=== PATIENT | male | born 1960 | race Caucasian/White ===

== ENCOUNTER 2021-04-19 23:16 | Inpatient (IN) | payer OTHER ==
[~2021-04-19] VITALS: Ht 172.7 cm; Wt 135.6 kg
[~2021-04-19 23:16] MED LIST: ALBU2.5V8 IH; ALLO100T PO; AMLO-187 PO; ATEN50TA PO; ATOR20TA58 PO; COLC0.6T34 PO; CYAN500T17 PO; DICL100G24 TP; DOCU100C28 PO; ESCITALOPRAM OX20 MG PO; FLUO60TA PO; GABA300C18 PO; HYDR-2769 PO; LISI-130 PO; LISI1TAB37 PO; METF10007 PO; OMEP40CA7 PO; POLY2500 PO; TIOT18CA IH; TRAZ-118 PO; [UNRECOGNIZED DRUG - OTHER]
[2021-04-19] MEDS ORDERED: IV NORMAL SALINE 1000ML BAG 1,000 ML IV ONE (23:45)
--- NOTE | 2021-04-19 23:49 | EKG ---
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
--- NOTE | 2021-04-19 23:51 | RAD ---
XR CHEST 1V 04/19/2021 11:23 PM INDICATION: Chest pain COMPARISON: 09/04/2020 TECHNIQUE: Portable frontal view of the chest is provided. FINDINGS: The cardiomediastinal silhouette is within normal limits. There is increased opacity identified withi n the right middle lobe and right lower lobe. Pulmonary emphysema. There are no significant pleural effusions. There is no pulmonary vascular congestion. No pneumothora x. No suspicious osseous abnormality. Left shoulder hardware is partially profiled. IMPRESSION: Increased opacity at the right lung base involving the right middle lobe and right lower lobe favors pulmonary infiltrate in appropriate clinical setting. Short-term follow-up two-view chest radiograph could be of benefit. Electronically signed by: Zully Jackson MD (04/19/2021 11:48 PM) [facility]
[2021-04-20 00:02] LABS: BASO # 0.1 x10^3/uL (0.0-0.2); BASO % 1 % (0-3); EOS # 0.2 x10^3/uL (0.0-0.7); EOS % 1 % (0-3); HEMATOCRIT 39.7 % (39.0-53.0); HEMOGLOBIN 13.5 g/dL (13.0-17.5); LYMPH # 4.8 x10^3/uL (1.0-4.8); LYMPH % 37 % (24-48); MEAN CORPUSCULAR HEMOGLOBIN 32 pg (25-35); MEAN CORPUSCULAR HGB CONC 34 g/dL (31-37); MEAN CORPUSCULAR VOLUME 94 fL (79-100); MONO # 0.6 x10^3/uL (0.0-1.1); MONO % 4 % (0-9); NEUT # 7.2 x10^3/uL (1.8-7.7); NEUT % 56 % (31-73); PLATELET COUNT 323 x10^3/uL (140-400); RED BLOOD COUNT 4.21 x10^6/uL (4.30-5.70); WHITE BLOOD COUNT 12.7 x10^3/uL (4.0-11.0)
[2021-04-20 00:16] LABS: CALCIUM 8.1 mg/dL (8.5-10.1); CREATININE 0.9 mg/dL (0.7-1.3); GFR 86.7
[2021-04-20 00:22] LABS: ALBUMIN 3.3 g/dL (3.4-5.0); ALBUMIN/GLOBULIN RATIO 0.8 (1.0-1.7); TOTAL BILIRUBIN 0.2 mg/dL (0.2-1.0); TOTAL PROTEIN 7.2 g/dL (6.4-8.2)
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
[2021-04-20] MEDS ORDERED: cefTRIAXone IV Push 1 GM VIAL. IVP ONE (01:30)
[2021-04-20] MEDS ORDERED: AZITHROMYCIN 250 MG TABLET. PO ONE (01:30)
[2021-04-20] MEDS ORDERED: POTASSIUM CHLORIDE 20 MEQ TABLET.ER. PO ONE ×2 (03:30→14:00)
--- NOTE | 2021-04-20 04:30 | NUR ---
The patient, J Luis Lemus S, 60 y/o, M admitted by TJ ALEJO MD, was given written information regarding hospital policies, unit procedures and contact persons. assessment and history completed. used history in the emr. pt on room air. med/surg pt. room 665 Valuables were checked and documented in the emr. lcrn.
[2021-04-20 04:45] VITALS: BP 192/114
[2021-04-20] MEDS ORDERED: MAGNESIUM SULFATE 2GM 50 ML IV ONE (04:45)
[2021-04-20 07:00] VITALS: BP 219/101
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
[2021-04-20] MEDS ORDERED: diphenhydrAMINE HCL 25 MG CAPSULE PO PRN (09:15)
[2021-04-20] MEDS ORDERED: DEXTROSE 50% 25 GM / 50ML DISP.SYRIN. IV PRN (09:15)
[2021-04-20] MEDS ORDERED: hydrALAZINE 20 MG/ML VIAL. IVP PRN (09:15)
[2021-04-20] MEDS ORDERED: SENNOSIDES 8.6 MG TABLET PO PRN (09:15)
[2021-04-20] MEDS ORDERED: LORazepam 0.5 MG TABLET PO PRN (09:15)
[2021-04-20] MEDS ORDERED: DOCUSATE SODIUM 100 MG CAPSULE. PO PRN (09:15)
[2021-04-20] MEDS: LABETALOL 20 MG/4 ML DISP.SYRIN. IVP PRN (09:29)
[2021-04-20] MEDS: ONDANSETRON PF 4 MG/2 ML VIAL. IVP PRN ×2 (09:29→17:43)
[2021-04-20 10:47] VITALS: BP 161/80
[2021-04-20] MEDS: PROCHLORPERAZINE 10 MG/2 ML VIAL. IV PRN ×2 (12:34→21:00)
--- NOTE | 2021-04-20 13:53 | NUR ---
SS following for discharge planning. SS reviewed pt chart and discussed with pt RN. Pt is from home and is currently on room air. COVID19 negative. Pt on IV Azithromycin and IV Rocephin. Discharge plan is currently to home when medically ready for discharge. SS will continue to follow for discharge planning.
[2021-04-20] MEDS: ENOXAPARIN 40 MG/0.4 ML SYRINGE. SQ SCH ×2 (14:44→20:59)
[2021-04-20 15:00] VITALS: BP 174/86
[2021-04-20 19:52] VITALS: BP 135/74
[2021-04-20] MEDS: LACTOBACILLUS RHAMNOSUS GG 1 CAPSULE. PO SCH (20:59)
[2021-04-20] MEDS: ZOLPIDEM 5 MG TABLET. PO PRN (20:59)
[2021-04-20] MEDS: ACETAMINOPHEN 325 MG TABLET. PO PRN (21:00)
[2021-04-20] MEDS: diphenhydrAMINE 50 MG/ML VIAL IVP PRN (21:00)
[2021-04-21 07:00] VITALS: BP 167/102
[2021-04-21] MEDS: ACETAMINOPHEN 325 MG TABLET. PO PRN (07:04)
[2021-04-21 07:14] LABS: BASO % 1 % (0-3); EOS # 0.2 x10^3/uL (0.0-0.7); EOS % 3 % (0-3); HEMATOCRIT 35.8 % (39.0-53.0); HEMOGLOBIN 12.1 g/dL (13.0-17.5); LYMPH # 2.1 x10^3/uL (1.0-4.8); LYMPH % 34 % (24-48); MEAN CORPUSCULAR HEMOGLOBIN 32 pg (25-35); MEAN CORPUSCULAR HGB CONC 34 g/dL (31-37); MEAN CORPUSCULAR VOLUME 95 fL (79-100); MONO # 0.3 x10^3/uL (0.0-1.1); MONO % 6 % (0-9); NEUT # 3.5 x10^3/uL (1.8-7.7); NEUT % 56 % (31-73); PLATELET COUNT 255 x10^3/uL (140-400); RED BLOOD COUNT 3.76 x10^6/uL (4.30-5.70); WHITE BLOOD COUNT 6.2 x10^3/uL (4.0-11.0)
[2021-04-21 07:33] LABS: CALCIUM 7.9 mg/dL (8.5-10.1); CREATININE 0.7 mg/dL (0.7-1.3); GFR 115.8; MAGNESIUM 1.7 mg/dL (1.8-2.4); PHOSPHORUS 4.8 mg/dL (2.6-4.7)
[2021-04-21] MEDS: AZITHROMYCIN 500 MG in IV NORMAL SALINE 250ML 250 ML IV SCH (10:39)
[2021-04-21] MEDS: LACTOBACILLUS RHAMNOSUS GG 1 CAPSULE. PO SCH ×2 (10:39→19:34)
[2021-04-21] MEDS: ENOXAPARIN 40 MG/0.4 ML SYRINGE. SQ SCH ×2 (10:40→20:17)
[2021-04-21 11:00] VITALS: BP 151/99
[2021-04-21] MEDS: diphenhydrAMINE 50 MG/ML VIAL IVP PRN ×2 (11:59→17:11)
--- NOTE | 2021-04-21 12:14 | NUR ---
SW following. Discussed with RN, pt from home alone, room air, ada diet, COVID-19 negative, abx, ad sergey. RN advised no SW needs at this time. Pt will discharge home when medically stable. SW will continue to follow.
--- NOTE | 2021-04-21 12:49 | PDOC ---
[employer] PROGRESS NOTE Date of Service DOS: DATE: 04/21/21 TIME: 12:47 Chief Complaint Chief Complaint Hypertensive urgency Sepsis Acute right middle and lower lobe pneumonia possible gram-negative organisms Lactic acidosis Acute electrolyte derangementhypokalemia, hypomagnesemia Admit to hospitalist service for further management Continue empiric IV antibiotics CIWA protocol Continue IV fluids PO and IV electrolyte replacement as needed Lovenox for DVT prophylaxis Cardiac diet CODE STATUS full Discussed with RN and SW Disposition inpatient management as above DPOA: undesignated History of Present Illness History of Present Illness 04/21 Patient evaluated examined at bedside. He was resting in bed sleeping on room air. Easily awoken. Says chest pain has improved quite a bit. Still having shortness of breath with productive cough. Continue IV antibiotics. Home meds reconciled resumed today. Patient has been showing some concerning signs for alcohol withdrawal like hallucinations. Keep CIWA we will closely monitor. Vitals/I&O Vitals/I&O: Vital Signs Date Time Temp Pulse Resp B/P (MAP) Pulse Ox O2 Delivery O2 Flow Rate FiO2 04/21/21 11:00 97.5 93 20 151/99 (116) 95 Room Air 97.5 I & O 04/20/21 04/20/21 04/21/21 15:00 23:00 07:00 Intake Total 1135 ml 660 ml 360 ml Balance 1135 ml 660 ml 360 ml Physical Exam General: Alert, Oriented X3, Cooperative Heart: Regular rate, Normal S1 Lungs: Other (Coarse decreased air entry throughout) Abdomen: Normal bowel sounds, Soft, No tenderness Extremities: Normal pulses, Other (Bilateral lower extremity edema) Skin: No significant lesion Labs Labs: Laboratory Tests Test 04/20/21 16:34 04/21/21 05:35 Glucose (Fingerstick) 119 mg/dL (70-99) White Blood Count 6.2 x10^3/uL (4.0-11.0) Red Blood Count 3.76 x10^6/uL (4.30-5.70) Hemoglobin 12.1 g/dL (13.0-17.5) Hematocrit 35.8 % (39.0-53.0) Mean Corpuscular Volume 95 fL (79-100) Mean Corpuscular Hemoglobin 32 pg (25-35) Mean Corpuscular Hemoglobin Concent 34 g/dL (31-37) Red Cell Distribution Width 13.0 % (11.5-14.5) Platelet Count 255 x10^3/uL (140-400) Neutrophils (%) (Auto) 56 % (31-73) Lymphocytes (%) (Auto) 34 % (24-48) Monocytes (%) (Auto) 6 % (0-9) Eosinophils (%) (Auto) 3 % (0-3) Basophils (%) (Auto) 1 % (0-3) Neutrophils # (Auto) 3.5 x10^3/uL (1.8-7.7) Lymphocytes # (Auto) 2.1 x10^3/uL (1.0-4.8) Monocytes # (Auto) 0.3 x10^3/uL (0.0-1.1) Eosinophils # (Auto) 0.2 x10^3/uL (0.0-0.7) Basophils # (Auto) 0.0 x10^3/uL (0.0-0.2) Sodium Level 143 mmol/L (136-145) Potassium Level 4.0 mmol/L (3.5-5.1) Chloride Level 105 mmol/L (98-107) Carbon Dioxide Level 27 mmol/L (21-32) Anion Gap 11 (6-14) Blood Urea Nitrogen 10 mg/dL (8-26) Creatinine 0.7 mg/dL (0.7-1.3) Estimated GFR (Cockcroft-Gault) 115.8 Glucose Level 113 mg/dL (70-99) Calcium Level 7.9 mg/dL (8.5-10.1) Phosphorus Level 4.8 mg/dL (2.6-4.7) Magnesium Level 1.7 mg/dL (1.8-2.4) Assessment and Plan Assessmemt and Plan Problems Medical Problems: (1) CAP (community acquired pneumonia) Status: Acute (2) Chest pain Status: Acute (3) Elevated lactic acid level Status: Acute (4) Hypokalemia Status: Acute (5) Hypomagnesemia Status: Acute Comment Review of Relevant I have reviewed the following items marika (where applicable) has been applied. Medications: Current Medications Medications (Trade) Dose Ordered Sig/Julia Route PRN Reason Start Time Stop Time Status Last Admin Dose Admin Azithromycin 500 mg/Sodium Chloride 250 ml @ 250 mls/hr Q24H IV 04/21/21 09:00 04/21/21 10:39 Potassium Chloride (Klor-Con) 40 meq 1X ONCE PO 04/20/21 14:00 04/20/21 14:01 DC 04/20/21 14:43 Enoxaparin Sodium (Lovenox 40mg Syringe) 40 mg Q12HR SQ 04/20/21 14:00 04/21/21 10:40 Lactobacillus Rhamnosus (Culturelle) 1 cap BID PO 04/20/21 21:00 04/21/21 10:39 Justifications for Admission Other Justification Alcohol intoxication, PNA TJ CARRENO MD Apr 21, 2021 12:49
[2021-04-21] MEDS ORDERED: POLYETHYLENE GLYCOL 3350 17 GM PACKET. PO PRN (13:00)
[2021-04-21] MEDS: cefTRIAXone IV Push 1 GM VIAL. IVP SCH (13:37)
[2021-04-21 14:41] VITALS: BP 163/102
[2021-04-21] MEDS: GABAPENTIN 300 MG CAPSULE. PO SCH ×2 (14:48→19:35)
[2021-04-21] MEDS: ALLOPURINOL 100 MG TABLET. PO SCH (14:49)
[2021-04-21] MEDS: IPRATRPIUM/ALBUTEROL 0.5/2.5MG 3 ML NEBU. NEB SCH ×2 (15:43→20:10)
[2021-04-21] MEDS: HYDROcodone/APAP 10/325 1 TAB TABLET PO PRN (16:31)
[2021-04-21] MEDS ORDERED: diphenhydrAMINE 50 MG/ML VIAL IVP PRN (18:15)
[2021-04-21] MEDS ORDERED: cloNIDine HCL 0.1 MG TABLET PO PRN (18:15)
[2021-04-21] MEDS: HALOPERIDOL LACTATE 5 MG/ML VIAL. IVP PRN (18:25)
[2021-04-21 19:00] VITALS: BP 183/105
[2021-04-21 19:30] VITALS: BP 169/100
[2021-04-21] MEDS ORDERED: OLANZapine IM 10 MG VIAL. IM ONE ×2 (19:30→22:00)
[2021-04-21] MEDS ORDERED: ZIPRASIDONE IM 20 MG VIAL. IM ONE ×2 (19:30→21:30)
[2021-04-21] MEDS: ZOLPIDEM 5 MG TABLET. PO PRN (19:34)
[2021-04-21] MEDS: diphenhydrAMINE HCL 25 MG CAPSULE PO PRN (19:34)
[2021-04-21] MEDS: ATENOLOL 50 MG TABLET. PO SCH (19:35)
[2021-04-21] MEDS: ONDANSETRON PF 4 MG/2 ML VIAL. IVP PRN (19:35)
[2021-04-21] MEDS: traZODone 50 MG TABLET. PO SCH (19:35)
[2021-04-21] MEDS: fentaNYL PF VIAL 100 MCG/2 ML VIAL IVP PRN (19:58)
--- NOTE | 2021-04-21 20:24 | NUR ---
Patient very confused, restless, hallucinating, he is up and down in his room and in the halls, he is looking for his family and a cat that he said 5 years ago. He is easily agitated, throwing his cellphone and other items in the room. He said he needs a liquor drink so that he can go to sleep. He is upset because this nurse is unable to provide him with the liquor. He is mad at his smart phone because he does not know how to operate it. he said, "I'm looking for my electronics that I had just bought today and my gun is missing." Reorientated him that he is in the hospital. Spoke with Dr. Bermudez additional medications ordered and administered per order. Patient would go lay down for 10 to 15 minutes and then get up looking for the family to pick him up and throw personal items onto the floor. He took all the trash out of the trash can and spread it around looking for his gun and electronics over and over again. Security came up to do a courtesy call and monitor while this nurse administered medications to Patient. CIWA above 24, Ativan, Benadryl and Haldol ordered per CIWA.
--- NOTE | 2021-04-21 20:51 | NUR ---
Dr. Bermudez up to see Patient at this time, Patient up walking with unsteady gait noted in hallway attempting to walk into closets in the mike wanting to urinate, this nurse redirected him to his bathroom and he hollered out, "God dam bitches!", new orders received from Dr. Bermudez.
--- NOTE | 2021-04-21 20:58 | NUR ---
Patient up walking in his room, grabbed the plate cover/lid that was left in his room and threw it like a frisbee at the window, this nurse took the lid out of the room at this time.
--- NOTE | 2021-04-21 21:53 | NUR ---
Patient non-compliant, Eri ICU STAFF NURSE went in room to check on Patient, He got up ambulated and urinated all over in his room and the bathroom, ICU STAFF NURSE attempted to assist him, he was noted to be unsteady, he pushed the bathroom door slamming it against the wall making loud noise, this nurse was at the desk and heard it all the way down the mike, Charge nurse called lilliana krause while this nurse ran into the room to assist ICU STAFF NURSE, Patient restless and agitated, assisted him back to bed administered medications per Dr. Bermudez's order, Patient calmed down a little with eyes closed, call light with in reach, bed alarm on.
--- NOTE | 2021-04-21 22:45 | NUR ---
Patient wake, restless, agitated, hallucinating, getting up with unsteady gait, this nurse assisted him back to bed, he was noted to have eyes closed, call light with in reach bed alarm on CIWA 24, this nurse went to get Ativan per [facility] protocol, As this nurse went down to administer Medication, Patient had gotten up out of bed, pulled his IV/SL out, his is on blood thinner, bleed all over the floor, fell towards the wall and hit his forehead, and scrap his Rt. knee, this nurse pressed the call light button, continued to holler out for staff assist and stayed with the Patient. Other Patient in room 576 heard this nurse and went to call charge nurse who came in and then went to call for a Rapid Response team. When Rapid response team arrived and took over the situation this nurse left to paged Dr. Alexander, new orders received, Patient moved closer to the nurse desk with staff taking turns to monitor closely. He was taken to CT by CHARGING MACHINE OPERATOR and this nurse while attempting to get CT of head, Patient started swinging at CT staff, this nurse called for an other CODE Bogdan.
[2021-04-21 23:00] VITALS: BP 205/118
[2021-04-21] MEDS ORDERED: HALOPERIDOL LACTATE 5 MG/ML VIAL. IVP ONE (23:15)
[2021-04-21] MEDS: LABETALOL 20 MG/4 ML DISP.SYRIN. IVP PRN (23:41)
--- NOTE | 2021-04-21 23:43 | NUR ---
Rapid Response: Arrived to room and several nursing staff and warehouse consultant in the room. Pt laying on the floor with blood everywhere. Attempts made to clean blood from patient but he would swing his arms at staff and yell. Pt has been medicated per doctors orders for alcohol withdraw and is disoriented and unable to follow commands. Pt noted to have a large area of swelling to the middle of his forehead and an abrasion to his left knee. Neuro assessment attempted but pt was uncooperative. Pupils were equal and reactive and he was moving all extremities. Dr. Alexander notified of pts fall and behavior by Yue Bañuelos RN and orders received for haldol and to attempt to get a head a CT if pt will lay still and cooperate. Decision by warehouse consultant to move pt to room 586 by the nurses desk and to have the nurse aid to sit with him. Pt assisted off the floor by 4 staff members and placed in bed.
[2021-04-22] MEDS ORDERED: ZIPRASIDONE IM 20 MG VIAL. IM STA (00:02)
[2021-04-22] MEDS ORDERED: OLANZapine IM 10 MG VIAL. IM ONE (00:15)
--- NOTE | 2021-04-22 01:18 | RAD ---
PQRS Compliance Statement: One or more of the following individualized dose reduction techniques were utilized for this examinat ion: 1. Automated exposure control 2. Adjustment of the mA and/or kV according to patient size 3. Use of iterative reconstruction technique CT head without contrast 04/21/2021 12:38 AM INDICATION: Fall, combative COMPARISON: None available TECHNIQUE: Multiple axial CT images of the head were obtained from skull base through the vertex with out intravenous contrast. FINDINGS: Head:. Extensive motion artifact limits evaluation. Right scalp hematoma measures 2.0 cm in maximal t hickness. Adjacent calvaria appears intact. Ventricles, sulci and basal cisterns are within normal limits. There is no hydrocephalus. Mcfadden-white matter differentiation is normal. Nondiagnostic examination for evaluation of acute intracranial hemo rrhage. There is no mass, mass effect or midline shift. Posterior fossa is normal in appearance. Visualized portions of the orbits are normal. Paranasal sinuses are well aerated. Mastoid air cells a re well aerated. Scalp and calvaria are normal. IMPRESSION: Nondiagnostic examination for evaluation of acute intracranial hemorrhage. Right frontal scalp hemato ma is identified. Electronically signed by: Zully Jackson MD (04/22/2021 1:16 AM) [facility]
[2021-04-22] MEDS: HALOPERIDOL LACTATE 5 MG/ML VIAL. IVP PRN (02:45)
[2021-04-22 03:00] VITALS: BP 166/98
[2021-04-22 07:00] VITALS: BP 180/63
[2021-04-22 07:22] LABS: BASE EXCESS ABG 3 mmol/L (-3-3); HCO3 ABG 29 mmol/L (21-28); PCO2 ABG 51 mmHg (35-46); PO2 ABG 57 mmHg (75-108); SAT O2 ABG 89 % (92-99)
[2021-04-22 07:25] LABS: FIO2 ABG 21/ room air
[2021-04-22] MEDS: IPRATRPIUM/ALBUTEROL 0.5/2.5MG 3 ML NEBU. NEB SCH ×4 (07:45→20:00)
[2021-04-22 07:58] LABS: BASO # 0.1 x10^3/uL (0.0-0.2); BASO % 1 % (0-3); EOS # 0.3 x10^3/uL (0.0-0.7); EOS % 3 % (0-3); HEMATOCRIT 34.4 % (39.0-53.0); HEMOGLOBIN 11.5 g/dL (13.0-17.5); LYMPH # 1.9 x10^3/uL (1.0-4.8); LYMPH % 24 % (24-48); MEAN CORPUSCULAR HEMOGLOBIN 32 pg (25-35); MEAN CORPUSCULAR HGB CONC 33 g/dL (31-37); MEAN CORPUSCULAR VOLUME 96 fL (79-100); MONO # 0.6 x10^3/uL (0.0-1.1); MONO % 8 % (0-9); NEUT # 5.2 x10^3/uL (1.8-7.7); NEUT % 65 % (31-73); PLATELET COUNT 258 x10^3/uL (140-400); RED CELL DISTRIBUTION WIDTH 12.8 % (11.5-14.5); WHITE BLOOD COUNT 7.9 x10^3/uL (4.0-11.0)
[2021-04-22 08:24] LABS: CALCIUM 8.3 mg/dL (8.5-10.1); CREATININE 0.9 mg/dL (0.7-1.3); GFR 86.7; MAGNESIUM 1.8 mg/dL (1.8-2.4); POTASSIUM 4.2 mmol/L (3.5-5.1)
[2021-04-22] MEDS: LACTOBACILLUS RHAMNOSUS GG 1 CAPSULE. PO SCH ×2 (08:46→19:37)
[2021-04-22] MEDS: ATORVASTATIN CALCIUM 20 MG TABLET PO SCH (08:46)
[2021-04-22] MEDS: MULTIVITAMIN with MINERAL TABLET. PO SCH (08:46)
[2021-04-22] MEDS: THIAMINE 100 MG TABLET. PO SCH (08:46)
[2021-04-22] MEDS: hydroCHLOROthiazide 12.5 MG CAPSULE PO SCH (08:46)
[2021-04-22] MEDS: GABAPENTIN 300 MG CAPSULE. PO SCH ×3 (08:46→19:37)
[2021-04-22] MEDS: FOLIC ACID 1 MG TABLET. PO SCH (08:49)
[2021-04-22] MEDS: CITALOPRAM 20 MG TABLET. PO SCH (08:49)
[2021-04-22] MEDS: ALLOPURINOL 100 MG TABLET. PO SCH (08:49)
[2021-04-22] MEDS: PANTOPRAZOLE 40 MG TABLET.DR. PO SCH (08:50)
[2021-04-22] MEDS: HYDROcodone/APAP 10/325 1 TAB TABLET PO PRN ×2 (08:50→19:39)
[2021-04-22] MEDS: LISINOPRIL 20 MG TABLET PO SCH (08:50)
[2021-04-22] MEDS: ENOXAPARIN 40 MG/0.4 ML SYRINGE. SQ SCH ×2 (08:52→19:44)
[2021-04-22] MEDS ORDERED: NON FORMULARY ITEM (Tiotropium Bromide (Spiriva) 1 CAP) IH SCH (09:00)
[2021-04-22] MEDS: AZITHROMYCIN 500 MG in IV NORMAL SALINE 250ML 250 ML IV SCH (09:09)
[2021-04-22] MEDS: cefTRIAXone IV Push 1 GM VIAL. IVP SCH (09:10)
[2021-04-22 11:00] VITALS: BP 197/107
[2021-04-22 15:00] VITALS: BP 116/77
[2021-04-22 19:00] VITALS: BP 149/90
[2021-04-22] MEDS: traZODone 50 MG TABLET. PO SCH (19:37)
[2021-04-22] MEDS: ZOLPIDEM 5 MG TABLET. PO PRN (19:56)
[2021-04-22] MEDS: ATENOLOL 50 MG TABLET. PO SCH (19:56)
[2021-04-22] MEDS ORDERED: ZIPRASIDONE IM 20 MG VIAL. IM ONE (22:30)
[2021-04-23 04:39] LABS: BASO % 1 % (0-3); EOS # 0.3 x10^3/uL (0.0-0.7); EOS % 3 % (0-3); HEMATOCRIT 32.4 % (39.0-53.0); HEMOGLOBIN 11.1 g/dL (13.0-17.5); LYMPH # 1.6 x10^3/uL (1.0-4.8); LYMPH % 18 % (24-48); MEAN CORPUSCULAR HEMOGLOBIN 34 pg (25-35); MEAN CORPUSCULAR HGB CONC 34 g/dL (31-37); MEAN CORPUSCULAR VOLUME 98 fL (79-100); MONO # 0.7 x10^3/uL (0.0-1.1); MONO % 8 % (0-9); NEUT # 6.3 x10^3/uL (1.8-7.7); NEUT % 70 % (31-73); PLATELET COUNT 243 x10^3/uL (140-400); RED BLOOD COUNT 3.31 x10^6/uL (4.30-5.70); RED CELL DISTRIBUTION WIDTH 12.7 % (11.5-14.5); WHITE BLOOD COUNT 8.9 x10^3/uL (4.0-11.0)
[2021-04-23 04:56] LABS: CALCIUM 8.1 mg/dL (8.5-10.1); CREATININE 0.9 mg/dL (0.7-1.3); GFR 86.7; MAGNESIUM 2.1 mg/dL (1.8-2.4); POTASSIUM 4.7 mmol/L (3.5-5.1)
[2021-04-23 07:00] VITALS: BP 147/81
[2021-04-23] MEDS: MULTIVITAMIN with MINERAL TABLET. PO SCH (07:55)
[2021-04-23] MEDS: THIAMINE 100 MG TABLET. PO SCH (07:55)
[2021-04-23] MEDS: PANTOPRAZOLE 40 MG TABLET.DR. PO SCH (07:55)
[2021-04-23] MEDS: hydroCHLOROthiazide 12.5 MG CAPSULE PO SCH (07:55)
[2021-04-23] MEDS: GABAPENTIN 300 MG CAPSULE. PO SCH ×3 (07:55→19:48)
[2021-04-23] MEDS: LACTOBACILLUS RHAMNOSUS GG 1 CAPSULE. PO SCH ×2 (07:56→19:48)
[2021-04-23] MEDS: HYDROcodone/APAP 10/325 1 TAB TABLET PO PRN (07:56)
[2021-04-23] MEDS: ALLOPURINOL 100 MG TABLET. PO SCH (07:57)
[2021-04-23] MEDS: ATORVASTATIN CALCIUM 20 MG TABLET PO SCH (07:57)
[2021-04-23] MEDS: FOLIC ACID 1 MG TABLET. PO SCH (07:57)
[2021-04-23] MEDS: ENOXAPARIN 40 MG/0.4 ML SYRINGE. SQ SCH ×2 (07:58→19:49)
[2021-04-23] MEDS: CITALOPRAM 20 MG TABLET. PO SCH (07:58)
[2021-04-23] MEDS: LISINOPRIL 20 MG TABLET PO SCH (07:59)
[2021-04-23] MEDS: IPRATRPIUM/ALBUTEROL 0.5/2.5MG 3 ML NEBU. NEB SCH ×4 (08:32→20:00)
[2021-04-23] MEDS: cefTRIAXone IV Push 1 GM VIAL. IVP SCH (09:00)
[2021-04-23] MEDS: AZITHROMYCIN 500 MG in IV NORMAL SALINE 250ML 250 ML IV SCH (10:15)
[2021-04-23 11:00] VITALS: BP 118/74
[2021-04-23] MEDS: IV NORMAL SALINE 1000ML BAG 1,000 ML IV SCH ×2 (12:00→23:06)
--- NOTE | 2021-04-23 12:32 | PDOC ---
[employer] PROGRESS NOTE Date of Service DOS: DATE: 04/23/21 TIME: 12:30 Chief Complaint Chief Complaint Hypertensive urgency Sepsis Acute right middle and lower lobe pneumonia possible gram-negative organisms Lactic acidosis Acute electrolyte derangementhypokalemia, hypomagnesemia Admit to hospitalist service for further management Continue empiric IV antibiotics CIWA protocol Continue IV fluids PO and IV electrolyte replacement as needed Lovenox for DVT prophylaxis Cardiac diet CODE STATUS full Discussed with RN and SW Disposition inpatient management as above DPOA: undesignated History of Present Illness History of Present Illness I saw this patient on 04/22 at night for agitation, screaming, I gave Geodon 20 today, still same problems, has taken off tele, will get EKG to check QT range more calm this AM, out of mits, meds needed PRN, still in withdrawl sx IV fluid today, appears dry 04/21 Patient evaluated examined at bedside. He was resting in bed sleeping on room air. Easily awoken. Says chest pain has improved quite a bit. Still having shortness of breath with productive cough. Continue IV antibiotics. Home meds reconciled resumed today. Patient has been showing some concerning signs for alcohol withdrawal like hallucinations. Keep CIWA we will closely monitor. Vitals/I&O Vitals/I&O: Vital Signs Date Time Temp Pulse Resp B/P (MAP) Pulse Ox O2 Delivery O2 Flow Rate FiO2 04/23/21 12:24 Room Air 04/23/21 11:00 98.3 84 20 118/74 (89) 94 98.3 04/22/21 23:00 2.0 Physical Exam Physical Exam: agiated, confused, then lethargic Heart: Regular rate, Normal S1 Lungs: Other (Coarse decreased air entry throughout) Abdomen: Normal bowel sounds, Soft, No tenderness Extremities: No cyanosis, Normal pulses, Other (Bilateral lower extremity edema) Skin: No rashes, No significant lesion, Other (nice tattoos) Labs Labs: Laboratory Tests Test 04/22/21 16:28 04/22/21 19:58 04/23/21 04:20 04/23/21 07:17 Glucose (Fingerstick) 121 mg/dL (70-99) 111 mg/dL (70-99) 112 mg/dL (70-99) White Blood Count 8.9 x10^3/uL (4.0-11.0) Red Blood Count 3.31 x10^6/uL (4.30-5.70) Hemoglobin 11.1 g/dL (13.0-17.5) Hematocrit 32.4 % (39.0-53.0) Mean Corpuscular Volume 98 fL (79-100) Mean Corpuscular Hemoglobin 34 pg (25-35) Mean Corpuscular Hemoglobin Concent 34 g/dL (31-37) Red Cell Distribution Width 12.7 % (11.5-14.5) Platelet Count 243 x10^3/uL (140-400) Neutrophils (%) (Auto) 70 % (31-73) Lymphocytes (%) (Auto) 18 % (24-48) Monocytes (%) (Auto) 8 % (0-9) Eosinophils (%) (Auto) 3 % (0-3) Basophils (%) (Auto) 1 % (0-3) Neutrophils # (Auto) 6.3 x10^3/uL (1.8-7.7) Lymphocytes # (Auto) 1.6 x10^3/uL (1.0-4.8) Monocytes # (Auto) 0.7 x10^3/uL (0.0-1.1) Eosinophils # (Auto) 0.3 x10^3/uL (0.0-0.7) Basophils # (Auto) 0.0 x10^3/uL (0.0-0.2) Sodium Level 145 mmol/L (136-145) Potassium Level 4.7 mmol/L (3.5-5.1) Chloride Level 106 mmol/L (98-107) Carbon Dioxide Level 34 mmol/L (21-32) Anion Gap 5 (6-14) Blood Urea Nitrogen 15 mg/dL (8-26) Creatinine 0.9 mg/dL (0.7-1.3) Estimated GFR (Cockcroft-Gault) 86.7 Glucose Level 121 mg/dL (70-99) Calcium Level 8.1 mg/dL (8.5-10.1) Magnesium Level 2.1 mg/dL (1.8-2.4) Test 04/23/21 11:16 Glucose (Fingerstick) 100 mg/dL (70-99) Assessment and Plan Assessmemt and Plan Problems Medical Problems: (1) CAP (community acquired pneumonia) Status: Acute (2) Chest pain Status: Acute (3) Elevated lactic acid level Status: Acute (4) Hypokalemia Status: Acute (5) Hypomagnesemia Status: Acute Comment Review of Relevant I have reviewed the following items marika (where applicable) has been applied. Medications: Current Medications Medications (Trade) Dose Ordered Sig/Julia Route PRN Reason Start Time Stop Time Status Last Admin Dose Admin Ziprasidone (Geodon Im) 20 mg 1X ONCE IM 04/22/21 22:30 04/22/21 22:31 DC 04/22/21 22:16 Justifications for Admission Other Justification Alcohol intoxication, PNA JABARI FUENTES MD Apr 23, 2021 12:32
--- NOTE | 2021-04-23 13:02 | NUR ---
SW following. Discussed with RN, pt from home alone, room air, ada diet. Pt still withdrawing and hallucinating. Pt will discharge home when medically stable. SW will continue to follow.
--- NOTE | 2021-04-23 13:30 | PDOC ---
[employer] PROGRESS NOTE Date of Service DOS: Late entry for April 22 Chief Complaint Chief Complaint Hypertensive urgency Sepsis Acute right middle and lower lobe pneumonia possible gram-negative organisms Lactic acidosis Acute electrolyte derangementhypokalemia, hypomagnesemia Admit to hospitalist service for further management Continue empiric IV antibiotics CIWA protocol Continue IV fluids PO and IV electrolyte replacement as needed Lovenox for DVT prophylaxis Cardiac diet CODE STATUS full Discussed with RN and SW Disposition inpatient management as above DPOA: undesignated History of Present Illness History of Present Illness 04/22 Late entry for April 22. Evaluate examined at bedside. Improving a little bit but seems a bit altered today. Otherwise continue pneumonia treatment. As needed CIWA. 04/21 Patient evaluated examined at bedside. He was resting in bed sleeping on room air. Easily awoken. Says chest pain has improved quite a bit. Still having shortness of breath with productive cough. Continue IV antibiotics. Home meds reconciled resumed today. Patient has been showing some concerning signs for alcohol withdrawal like hallucinations. Keep CIWA we will closely monitor. Vitals/I&O Vitals/I&O: Vital Signs Date Time Temp Pulse Resp B/P (MAP) Pulse Ox O2 Delivery O2 Flow Rate FiO2 04/23/21 12:24 Room Air 04/23/21 11:00 98.3 84 20 118/74 (89) 94 98.3 04/22/21 23:00 2.0 Physical Exam Physical Exam: agiated, confused, then lethargic Heart: Regular rate, Normal S1 Lungs: Other (Coarse decreased air entry throughout) Abdomen: Normal bowel sounds, Soft, No tenderness Extremities: No cyanosis, Normal pulses, Other (Bilateral lower extremity edema) Skin: No rashes, No significant lesion, Other (nice tattoos) Labs Labs: Laboratory Tests Test 04/22/21 16:28 04/22/21 19:58 04/23/21 04:20 04/23/21 07:17 Glucose (Fingerstick) 121 mg/dL (70-99) 111 mg/dL (70-99) 112 mg/dL (70-99) White Blood Count 8.9 x10^3/uL (4.0-11.0) Red Blood Count 3.31 x10^6/uL (4.30-5.70) Hemoglobin 11.1 g/dL (13.0-17.5) Hematocrit 32.4 % (39.0-53.0) Mean Corpuscular Volume 98 fL (79-100) Mean Corpuscular Hemoglobin 34 pg (25-35) Mean Corpuscular Hemoglobin Concent 34 g/dL (31-37) Red Cell Distribution Width 12.7 % (11.5-14.5) Platelet Count 243 x10^3/uL (140-400) Neutrophils (%) (Auto) 70 % (31-73) Lymphocytes (%) (Auto) 18 % (24-48) Monocytes (%) (Auto) 8 % (0-9) Eosinophils (%) (Auto) 3 % (0-3) Basophils (%) (Auto) 1 % (0-3) Neutrophils # (Auto) 6.3 x10^3/uL (1.8-7.7) Lymphocytes # (Auto) 1.6 x10^3/uL (1.0-4.8) Monocytes # (Auto) 0.7 x10^3/uL (0.0-1.1) Eosinophils # (Auto) 0.3 x10^3/uL (0.0-0.7) Basophils # (Auto) 0.0 x10^3/uL (0.0-0.2) Sodium Level 145 mmol/L (136-145) Potassium Level 4.7 mmol/L (3.5-5.1) Chloride Level 106 mmol/L (98-107) Carbon Dioxide Level 34 mmol/L (21-32) Anion Gap 5 (6-14) Blood Urea Nitrogen 15 mg/dL (8-26) Creatinine 0.9 mg/dL (0.7-1.3) Estimated GFR (Cockcroft-Gault) 86.7 Glucose Level 121 mg/dL (70-99) Calcium Level 8.1 mg/dL (8.5-10.1) Magnesium Level 2.1 mg/dL (1.8-2.4) Test 04/23/21 11:16 Glucose (Fingerstick) 100 mg/dL (70-99) Assessment and Plan Assessmemt and Plan Problems Medical Problems: (1) CAP (community acquired pneumonia) Status: Acute (2) Chest pain Status: Acute (3) Elevated lactic acid level Status: Acute (4) Hypokalemia Status: Acute (5) Hypomagnesemia Status: Acute Comment Review of Relevant I have reviewed the following items marika (where applicable) has been applied. Medications: Current Medications Medications (Trade) Dose Ordered Sig/Julia Route PRN Reason Start Time Stop Time Status Last Admin Dose Admin Ziprasidone (Geodon Im) 20 mg 1X ONCE IM 04/22/21 22:30 04/22/21 22:31 DC 04/22/21 22:16 Sodium Chloride 1,000 ml @ 100 mls/hr Q10H IV 04/23/21 12:00 04/25/21 11:59 04/23/21 12:00 Justifications for Admission Other Justification Alcohol intoxication, PNA TJ CARRENO MD Apr 23, 2021 13:30
[2021-04-23] MEDS: HALOPERIDOL LACTATE 5 MG/ML VIAL. IVP PRN ×2 (14:32→21:37)
[2021-04-23 15:00] VITALS: BP 111/62
[2021-04-23 19:36] VITALS: BP 139/67
[2021-04-23] MEDS: ATENOLOL 50 MG TABLET. PO SCH (19:48)
[2021-04-23] MEDS: traZODone 50 MG TABLET. PO SCH (19:50)
[2021-04-23] MEDS: diphenhydrAMINE 50 MG/ML VIAL IVP PRN (21:11)
[2021-04-23] MEDS: fentaNYL PF VIAL 100 MCG/2 ML VIAL IVP PRN (21:38)
[2021-04-23 23:20] VITALS: BP 125/72
[2021-04-24] MEDS: fentaNYL PF VIAL 100 MCG/2 ML VIAL IVP PRN (03:47)
[2021-04-24 07:00] VITALS: BP 146/99
[2021-04-24] MEDS: IPRATRPIUM/ALBUTEROL 0.5/2.5MG 3 ML NEBU. NEB SCH ×4 (07:56→21:48)
[2021-04-24] MEDS: PANTOPRAZOLE 40 MG TABLET.DR. PO SCH (08:10)
[2021-04-24] MEDS: CITALOPRAM 20 MG TABLET. PO SCH (08:10)
[2021-04-24] MEDS: ENOXAPARIN 40 MG/0.4 ML SYRINGE. SQ SCH ×2 (08:10→21:46)
[2021-04-24] MEDS: hydroCHLOROthiazide 12.5 MG CAPSULE PO SCH (08:10)
[2021-04-24] MEDS: ATORVASTATIN CALCIUM 20 MG TABLET PO SCH (08:10)
[2021-04-24] MEDS: LISINOPRIL 20 MG TABLET PO SCH (08:10)
[2021-04-24] MEDS: IV NORMAL SALINE 1000ML BAG 1,000 ML IV SCH ×2 (08:10→18:20)
[2021-04-24] MEDS: GABAPENTIN 300 MG CAPSULE. PO SCH ×3 (08:10→21:45)
[2021-04-24] MEDS: LACTOBACILLUS RHAMNOSUS GG 1 CAPSULE. PO SCH ×2 (08:10→21:45)
[2021-04-24] MEDS: THIAMINE 100 MG TABLET. PO SCH (08:10)
[2021-04-24] MEDS: ALLOPURINOL 100 MG TABLET. PO SCH (08:10)
[2021-04-24] MEDS: FOLIC ACID 1 MG TABLET. PO SCH (08:10)
[2021-04-24] MEDS: AZITHROMYCIN 250 MG TABLET. PO SCH (08:10)
[2021-04-24] MEDS: MULTIVITAMIN with MINERAL TABLET. PO SCH (08:10)
--- NOTE | 2021-04-24 09:52 | PDOC ---
[employer] PROGRESS NOTE Date of Service DOS: DATE: 04/24/21 TIME: 09:51 Chief Complaint Chief Complaint Hypertensive urgency Sepsis Acute right middle and lower lobe pneumonia possible gram-negative organisms Lactic acidosis Acute electrolyte derangementhypokalemia, hypomagnesemia Admit to hospitalist service for further management Continue empiric IV antibiotics CIWA protocol Continue IV fluids PO and IV electrolyte replacement as needed Lovenox for DVT prophylaxis Cardiac diet CODE STATUS full Discussed with RN and SW Disposition inpatient management as above DPOA: undesignated History of Present Illness History of Present Illness 04/24 Patient evaluated examined at bedside. Resting in bed in a very deep sleep. No reports of further agitation overnight. Continue antibiotics. Treat withdrawal as needed. Likely here through the weekend. 04/22 Late entry for April 22. Evaluate examined at bedside. Improving a little bit but seems a bit altered today. Otherwise continue pneumonia treatment. As needed CIWA. 04/21 Patient evaluated examined at bedside. He was resting in bed sleeping on room air. Easily awoken. Says chest pain has improved quite a bit. Still having shortness of breath with productive cough. Continue IV antibiotics. Home meds reconciled resumed today. Patient has been showing some concerning signs for alcohol withdrawal like hallucinations. Keep CIWA we will closely monitor. Vitals/I&O Vitals/I&O: Vital Signs Date Time Temp Pulse Resp B/P (MAP) Pulse Ox O2 Delivery O2 Flow Rate FiO2 04/24/21 07:58 96 Room Air 04/24/21 07:00 97.2 72 20 146/99 (115) 97.2 04/24/21 04:15 2.0 I & O 04/23/21 04/23/21 04/24/21 15:00 23:00 07:00 Intake Total 60 ml Output Total 500 ml 450 ml Balance -500 ml -390 ml Physical Exam Physical Exam: agiated, confused, then lethargic Heart: Regular rate, Normal S1 Lungs: Other (Coarse decreased air entry throughout) Abdomen: Normal bowel sounds, Soft, No tenderness Extremities: No cyanosis, Normal pulses, Other (Bilateral lower extremity edema) Skin: No rashes, No significant lesion, Other (nice tattoos) Labs Labs: Laboratory Tests Test 04/23/21 11:16 Glucose (Fingerstick) 100 mg/dL (70-99) Assessment and Plan Assessmemt and Plan Problems Medical Problems: (1) CAP (community acquired pneumonia) Status: Acute (2) Chest pain Status: Acute (3) Elevated lactic acid level Status: Acute (4) Hypokalemia Status: Acute (5) Hypomagnesemia Status: Acute Comment Review of Relevant I have reviewed the following items marika (where applicable) has been applied. Medications: Current Medications Medications (Trade) Dose Ordered Sig/Julia Route PRN Reason Start Time Stop Time Status Last Admin Dose Admin Sodium Chloride 1,000 ml @ 100 mls/hr Q10H IV 04/23/21 12:00 04/25/21 11:59 04/23/21 23:06 Justifications for Admission Other Justification Alcohol intoxication, PNA TJ CARRENO MD Apr 24, 2021 09:52
--- NOTE | 2021-04-24 10:47 | NUR ---
SW following. Discussed with RN, pt from home alone, room air, ada diet, COVID-19 negative. Pt still withdrawing but getting slowly better, per RN. SW will continue to follow.
[2021-04-24 11:00] VITALS: BP 136/93
[2021-04-24] MEDS: cefTRIAXone IV Push 1 GM VIAL. IVP SCH (12:15)
[2021-04-24 15:00] VITALS: BP 137/77
[2021-04-24 19:46] VITALS: BP 132/78
[2021-04-24] MEDS: traZODone 50 MG TABLET. PO SCH (21:45)
[2021-04-24] MEDS: ATENOLOL 50 MG TABLET. PO SCH (21:45)
[2021-04-25] MEDS: IV NORMAL SALINE 1000ML BAG 1,000 ML IV SCH (04:00)
[2021-04-25 07:00] VITALS: BP 142/95
[2021-04-25] MEDS: IPRATRPIUM/ALBUTEROL 0.5/2.5MG 3 ML NEBU. NEB SCH ×4 (07:21→20:00)
[2021-04-25] MEDS: AZITHROMYCIN 250 MG TABLET. PO SCH (09:27)
[2021-04-25] MEDS: LISINOPRIL 20 MG TABLET PO SCH (09:28)
[2021-04-25] MEDS: PANTOPRAZOLE 40 MG TABLET.DR. PO SCH (09:29)
[2021-04-25] MEDS: MULTIVITAMIN with MINERAL TABLET. PO SCH (09:30)
[2021-04-25] MEDS: GABAPENTIN 300 MG CAPSULE. PO SCH ×3 (09:30→22:27)
[2021-04-25] MEDS: THIAMINE 100 MG TABLET. PO SCH (09:30)
[2021-04-25] MEDS: FOLIC ACID 1 MG TABLET. PO SCH (09:30)
[2021-04-25] MEDS: LACTOBACILLUS RHAMNOSUS GG 1 CAPSULE. PO SCH ×2 (09:31→22:22)
[2021-04-25] MEDS: CITALOPRAM 20 MG TABLET. PO SCH (09:31)
[2021-04-25] MEDS: hydroCHLOROthiazide 12.5 MG CAPSULE PO SCH (09:31)
[2021-04-25] MEDS: ALLOPURINOL 100 MG TABLET. PO SCH (09:32)
[2021-04-25] MEDS: ATORVASTATIN CALCIUM 20 MG TABLET PO SCH (09:32)
[2021-04-25] MEDS: cefTRIAXone IV Push 1 GM VIAL. IVP SCH (09:32)
[2021-04-25] MEDS: ENOXAPARIN 40 MG/0.4 ML SYRINGE. SQ SCH ×2 (09:33→22:23)
[2021-04-25] MEDS ORDERED: ZOLPIDEM 5 MG TABLET. PO PRN (09:45)
[2021-04-25] MEDS: HYDROcodone/APAP 10/325 1 TAB TABLET PO PRN ×2 (10:56→17:59)
[2021-04-25 11:00] VITALS: BP 142/92
[2021-04-25] MEDS: ZIPRASIDONE IM 20 MG VIAL. IM PRN ×2 (12:50→22:26)
--- NOTE | 2021-04-25 13:43 | NUR ---
SN Jordan assessment documentation reviewed and noted. Sandy Zee RN, [facility]
--- NOTE | 2021-04-25 17:53 | PDOC ---
[facility] PROGRESS NOTE Date of Service DOS: DATE: 04/25/21 TIME: 17:51 Chief Complaint Chief Complaint Hypertensive urgency Sepsis Acute right middle and lower lobe pneumonia possible gram-negative organisms Lactic acidosis Acute electrolyte derangementhypokalemia, hypomagnesemia Admit to hospitalist service for further management Continue empiric IV antibiotics CIWA protocol Continue IV fluids PO and IV electrolyte replacement as needed Lovenox for DVT prophylaxis Cardiac diet CODE STATUS full Discussed with RN and SW Disposition inpatient management as above DPOA: undesignated History of Present Illness History of Present Illness 04.25 black eyes have happned since i saw him last calm and pleasant and fully oriented today very weak, unsteady, tremor, + asterixis only slight nystagmus lost IV - add CIWA ativan for PO dosing 04/24 Patient evaluated examined . Resting in bed in a very deep sleep. No reports of further agitation overnight. Continue antibiotics. Treat withdrawal as needed. Likely here through the weekend. 04/22 Late entry for April 22. Evaluate examined at bedside. Improving a little bit but seems a bit altered today. Otherwise continue pneumonia treatment. As needed CIWA. 04/21 Patient evaluated examined at bedside. He was resting in bed sleeping on room air. Easily awoken. Says chest pain has improved quite a bit. Still having shortness of breath with productive cough. Continue IV antibiotics. Home meds reconciled resumed today. Patient has been showing some concerning signs for alcohol withdrawal like hallucinations. Keep CIWA we will closely monitor. Vitals/I&O Vitals/I&O: Vital Signs Date Time Temp Pulse Resp B/P (MAP) Pulse Ox O2 Delivery O2 Flow Rate FiO2 04/25/21 11:26 94 Room Air 04/25/21 11:00 99.1 89 18 142/92 (109) 99.1 I & O 04/24/21 04/24/21 04/25/21 15:00 23:00 07:00 Intake Total 240 ml 120 ml Output Total 700 ml Balance -460 ml 120 ml Physical Exam Physical Exam: agiated, confused, then lethargic Heart: Regular rate, Normal S1 Lungs: Other (Coarse decreased air entry throughout) Abdomen: Normal bowel sounds, Soft, No tenderness Extremities: No cyanosis, Normal pulses, Other (Bilateral lower extremity edema) Skin: No rashes, No significant lesion, Other (nice tattoos) Assessment and Plan Assessmemt and Plan Problems Medical Problems: (1) CAP (community acquired pneumonia) Status: Acute (2) Chest pain Status: Acute (3) Elevated lactic acid level Status: Acute (4) Hypokalemia Status: Acute (5) Hypomagnesemia Status: Acute Comment Review of Relevant I have reviewed the following items marika (where applicable) has been applied. Medications: Current Medications Medications (Trade) Dose Ordered Sig/Julia Route PRN Reason Start Time Stop Time Status Last Admin Dose Admin Lorazepam (Ativan) 8 mg PRN Q1HR PRN PO For CIWA 15 or greater 04/25/21 10:45 04/25/21 10:56 Justifications for Admission Other Justification Alcohol intoxication, PNA JABARI FUENTES MD Apr 25, 2021 17:53
[2021-04-25 19:00] VITALS: BP 141/75
[2021-04-25] MEDS ORDERED: ZIPRASIDONE IM 20 MG VIAL. IM ONE (19:30)
[2021-04-25] MEDS: traZODone 50 MG TABLET. PO SCH (21:00)
[2021-04-25] MEDS: ATENOLOL 50 MG TABLET. PO SCH (22:24)
[2021-04-25 23:43] VITALS: BP 130/68
[2021-04-26] MEDS: diphenhydrAMINE HCL 25 MG CAPSULE PO PRN ×2 (00:09→20:42)
[2021-04-26] MEDS: PANTOPRAZOLE 40 MG TABLET.DR. PO SCH (06:55)
[2021-04-26] MEDS: IPRATRPIUM/ALBUTEROL 0.5/2.5MG 3 ML NEBU. NEB SCH ×4 (07:05→20:21)
[2021-04-26 07:20] VITALS: BP 106/56
[2021-04-26] MEDS: MULTIVITAMIN with MINERAL TABLET. PO SCH (09:00)
[2021-04-26 11:45] VITALS: BP 121/86
[2021-04-26] MEDS: AZITHROMYCIN 250 MG TABLET. PO SCH (12:00)
[2021-04-26] MEDS: CITALOPRAM 20 MG TABLET. PO SCH (12:01)
[2021-04-26] MEDS: HYDROcodone/APAP 10/325 1 TAB TABLET PO PRN ×2 (12:01→20:42)
[2021-04-26] MEDS: FOLIC ACID 1 MG TABLET. PO SCH (12:02)
[2021-04-26] MEDS: hydroCHLOROthiazide 12.5 MG CAPSULE PO SCH (12:02)
[2021-04-26] MEDS: LACTOBACILLUS RHAMNOSUS GG 1 CAPSULE. PO SCH ×2 (12:02→20:41)
[2021-04-26] MEDS: GABAPENTIN 300 MG CAPSULE. PO SCH ×3 (12:03→20:42)
[2021-04-26] MEDS: THIAMINE 100 MG TABLET. PO SCH (12:03)
[2021-04-26] MEDS: ALLOPURINOL 100 MG TABLET. PO SCH (12:04)
[2021-04-26] MEDS: LISINOPRIL 20 MG TABLET PO SCH (12:04)
[2021-04-26] MEDS: ENOXAPARIN 40 MG/0.4 ML SYRINGE. SQ SCH ×2 (12:10→20:44)
--- NOTE | 2021-04-26 13:14 | PDOC ---
[facility] PROGRESS NOTE Date of Service DOS: DATE: 04/26/21 TIME: 13:14 Chief Complaint Chief Complaint Hypertensive urgency Sepsis Acute right middle and lower lobe pneumonia possible gram-negative organisms Lactic acidosis Acute electrolyte derangementhypokalemia, hypomagnesemia Admit to hospitalist service for further management Continue empiric IV antibiotics CIWA protocol Continue IV fluids PO and IV electrolyte replacement as needed Lovenox for DVT prophylaxis Cardiac diet CODE STATUS full Discussed with RN and SW Disposition inpatient management as above DPOA: undesignated History of Present Illness History of Present Illness 04/26, complains that he cannot sleep, wants something more to sleep, wants to try to sleep now str better, try to DC soon has been restless, leg cramps, . black eyes have happned since i saw him last calm and pleasant and fully oriented today very weak, unsteady, tremor, + asterixis only slight nystagmus lost IV - add CIWA ativan for PO dosing 04/24 Patient evaluated examined . Resting in bed in a very deep sleep. No reports of further agitation overnight. Continue antibiotics. Treat withdrawal as needed. Likely here through the weekend. 04/22 Late entry for April 22. Evaluate examined at bedside. Improving a little b it but seems a bit altered today. Otherwise continue pneumonia treatment. As needed CIWA. 04/21 Patient evaluated examined at bedside. He was resting in bed sleeping on room air. Easily awoken. Says chest pain has improved quite a bit. Still having s hortness of breath with productive cough. Continue IV antibiotics. Home meds reconciled resumed today. Patient has been showing some concerning signs for alcohol withdrawal like hallucinations. Keep CIWA we will closely monitor. Vitals/I&O Vitals/I&O: Vital Signs Date Time Temp Pulse Resp B/P (MAP) Pulse Ox O2 Delivery O2 Flow Rate FiO2 04/26/21 12:04 76 121/86 04/26/21 12:01 20 91 Room Air 04/26/21 07:20 98.7 98.7 I & O 04/25/21 04/25/21 04/26/21 15:00 23:00 07:00 Intake Total 240 ml 600 ml Balance 240 ml 600 ml Physical Exam Physical Exam: agiated, confused, then lethargic Heart: Regular rate, Normal S1 Lungs: Other (Coarse decreased air entry throughout) Abdomen: Normal bowel sounds, Soft, No tenderness Extremities: No cyanosis, Normal pulses, Other (Bilateral lower extremity edema) Skin: No rashes, No significant lesion, Other (nice tattoos) Assessment and Plan Assessmemt and Plan Problems Medical Problems: (1) CAP (community acquired pneumonia) Status: Acute (2) Chest pain Status: Acute (3) Elevated lactic acid level Status: Acute (4) Hypokalemia Status: Acute (5) Hypomagnesemia Status: Acute Comment Review of Relevant I have reviewed the following items marika (where applicable) has been applied. Justifications for Admission Other Justification Alcohol intoxication, PNA JABARI FUENTES MD Apr 26, 2021 13:14
[2021-04-26] MEDS ORDERED: HALOPERIDOL 5 MG TABLET. PO PRN (13:15)
[2021-04-26 15:00] VITALS: BP 90/62
[2021-04-26 16:00] VITALS: BP 122/85
[2021-04-26 19:00] VITALS: BP 143/79
[2021-04-26] MEDS: CEPHALEXIN 250 MG CAPSULE. PO SCH (20:42)
[2021-04-26] MEDS: ATENOLOL 50 MG TABLET. PO SCH (20:43)
[2021-04-26] MEDS ORDERED: ZOLPIDEM 5 MG TABLET. PO SCH (21:15)
[2021-04-27] MEDS: HYDROcodone/APAP 10/325 1 TAB TABLET PO PRN ×2 (03:42→08:55)
[2021-04-27 07:00] VITALS: BP 142/73
[2021-04-27] MEDS: PANTOPRAZOLE 40 MG TABLET.DR. PO SCH (07:07)
[2021-04-27] MEDS: IPRATRPIUM/ALBUTEROL 0.5/2.5MG 3 ML NEBU. NEB SCH ×2 (08:00→12:00)
[2021-04-27] MEDS: THIAMINE 100 MG TABLET. PO SCH (08:37)
[2021-04-27] MEDS: ENOXAPARIN 40 MG/0.4 ML SYRINGE. SQ SCH (08:37)
[2021-04-27] MEDS: LACTOBACILLUS RHAMNOSUS GG 1 CAPSULE. PO SCH (08:37)
[2021-04-27] MEDS: GABAPENTIN 300 MG CAPSULE. PO SCH (08:37)
[2021-04-27] MEDS: FOLIC ACID 1 MG TABLET. PO SCH (08:37)
[2021-04-27] MEDS: CITALOPRAM 20 MG TABLET. PO SCH (08:37)
[2021-04-27] MEDS: MULTIVITAMIN with MINERAL TABLET. PO SCH (08:37)
[2021-04-27] MEDS: hydroCHLOROthiazide 12.5 MG CAPSULE PO SCH (08:37)
[2021-04-27] MEDS: CEPHALEXIN 250 MG CAPSULE. PO SCH (08:37)
[2021-04-27] MEDS: AZITHROMYCIN 250 MG TABLET. PO SCH (08:38)
[2021-04-27] MEDS: LISINOPRIL 20 MG TABLET PO SCH (08:38)
[2021-04-27 08:39] VITALS: BP 142/73
[2021-04-27] MEDS: ALLOPURINOL 100 MG TABLET. PO SCH (08:39)
--- NOTE | 2021-04-27 11:11 | PDOC ---
[facility] PROGRESS NOTE Date of Service DOS: DATE: 04/27/21 TIME: 11:08 Chief Complaint Chief Complaint Hypertensive urgency Sepsis Acute right middle and lower lobe pneumonia possible gram-negative organisms Lactic acidosis Acute electrolyte derangementhypokalemia, hypomagnesemia History of Present Illness History of Present Illness 04/27 Patient seen and examined this morning laying comfortably supine in bed sleeping Discussed with RN Chart reviewed Probable discharge today 04/26, complains that he cannot sleep, wants something more to sleep, wants to try to sleep now str better, try to DC soon has been restless, leg cramps, 2. black eyes have happned since i saw him last calm and pleasant and fully oriented today very weak, unsteady, tremor, + asterixis only slight nystagmus lost IV - add CIWA ativan for PO dosing 04/24 Patient evaluated examined . Resting in bed in a very deep sleep. No reports of further agitation overnight. Continue antibiotics. Treat withdrawal as needed. Likely here through the weekend. 04/22 Late entry for April 22. Evaluate examined at bedside. Improving a little bit but seems a bit altered today. Otherwise continue pneumonia treatment. As needed CIWA. 04/21 Patient evaluated examined at bedside. He was resting in bed sleeping on room air. Easily awoken. Says chest pain has improved quite a bit. Still having shortness of breath with productive cough. Continue IV antibiotics. Home meds reconciled resumed today. Patient has been showing some concerning signs for alcohol withdrawal like hallucinations. Keep CIWA we will closely monitor. Vitals/I&O Vitals/I&O: Vital Signs Date Time Temp Pulse Resp B/P (MAP) Pulse Ox O2 Delivery O2 Flow Rate FiO2 04/27/21 09:40 Room Air 04/27/21 08:39 65 142/73 04/27/21 07:00 96.4 20 93 96.4 04/27/21 04:12 2.0 Physical Exam Physical Exam: agiated, confused, then lethargic General: Other (Asleep) Heart: Regular rate, Normal S1 Lungs: Clear, Other (Coarse decreased air entry throughout) Abdomen: Normal bowel sounds, Soft, No tenderness Extremities: No cyanosis, Normal pulses, Other (Bilateral lower extremity edema) Skin: No rashes, No significant lesion, Other (nice tattoos) Assessment and Plan Assessmemt and Plan Problems Medical Problems: (1) CAP (community acquired pneumonia) Status: Acute (2) Chest pain Status: Acute (3) Elevated lactic acid level Status: Acute (4) Hypokalemia Status: Acute (5) Hypomagnesemia Status: Acute Assessment Hypertensive urgency Sepsis Acute right middle and lower lobe pneumonia possible gram-negative organisms Lactic acidosis Acute electrolyte derangementhypokalemia, hypomagnesemia Plan Continue IV antibiotics CIWA protocol Continue IV fluids PO and IV electrolyte replacement as needed DVT Prophylaxis (lovenox) Cardiac diet Full code Probable discharge today Comment Review of Relevant I have reviewed the following items marika (where applicable) has been applied. Medications: Current Medications Medications (Trade) Dose Ordered Sig/Julia Route PRN Reason Start Time Stop Time Status Last Admin Dose Admin Haloperidol (Haldol) 5 mg PRN DAILY PRN PO AGITATION 04/26/21 13:15 04/26/21 15:29 Cephalexin HCl (Keflex) 750 mg BID PO 04/26/21 21:00 04/27/21 08:37 Zolpidem Tartrate (Ambien) 5 mg HS PO 04/26/21 21:15 04/26/21 21:54 Justifications for Admission Other Justification Alcohol intoxication, PNA CYDNEYLEKATALINAL K III DO Apr 27, 2021 11:11
--- NOTE | 2021-04-27 11:13 | NUR ---
SW following. Discussed with RN, pt from home alone, room air, ada diet, COVID-19 negative. RN advised pt is discharging home today - awaiting discharge order. SW will continue to follow.
[2021-04-27] MEDS ORDERED: AZIT250T6 PO (11:35)
[2021-04-27] MEDS ORDERED: ALPR1TAB2 PO (11:35)
[2021-04-27] MEDS ORDERED: HYDR12.575 PO (11:35)
[2021-04-27] MEDS ORDERED: CEPH250C PO (11:35)
[2021-04-27] MEDS ORDERED: HALO5TAB PO (11:35)
[2021-04-27] MEDS ORDERED: HYDR-2769 PO (11:35)
--- NOTE | 2021-04-27 11:38 | SNU/HH DC ---
DISCHARGE WITH HOME HEALTH DISCHARGE INFORMATION: Final Diagnosis: Problems Medical Problems: (1) CAP (community acquired pneumonia) Status: Acute (2) Chest pain Status: Acute (3) Elevated lactic acid level Status: Acute (4) Hypokalemia Status: Acute (5) Hypomagnesemia Status: Acute Condition on Discharge: Stable CODE STATUS: Code Status: Full HOME HEALTH: Face to Face: I certify this patient is under my care and that I, or a nurse practitioner or physician's geriatric nurse assistant working with me, had a face to face encounter that meets the physician face to face encounter requirements with this patient on []. Medical Complications: Other (Resolving alcohol withdrawal) Mcfp For: Assess & Educate Safety RN For Eval/Treatment: Yes Physical Therapy For: Evalulation/Treatment Occupational Therapy For: Evaluation/Treatment Home Health Aide For: Self-care [employer]LECTRON[employer] SUBASSEMBLER For: Community Resources Pt Meets Homebound Status: Unsteady balance w/ amb, POST DISCHARGE ORDERS: Activity Instructions for Disc: Resume previous activity Weight Bearing Status after Di: Full weight bearing DIET AFTER DISCHARGE: Cardiac CHECKS AFTER DISCHARGE: Checks after discharge: Check blood press - daily FOLLOW-UP: DC TO SNF LABS: CBC, CMP CERTIFICATION STATEMENT: Certification Statement: Certification Statement: Based on the above finding, I certify that this patient is confined to the home and needs intermittent alf care, physical therapy and/or speech therapy, or continues to need occupational therapy.~ This patient is under my care, and I have initiated the establishment of the plan of care.~ This patient will be followed by myself or a community physician who will periodically review the plan of care. Home Meds Active Scripts Haloperidol (HALOPERIDOL) 5 Mg Tablet, 1 TAB PO BID for . for 10 Days, #20 TAB 1 Refill Prov:CASTLE,NIAL K III DO 04/27/21 Alprazolam (XANAX) 1 Mg Tablet, 1 TAB PO BID for anxiety for 10 Days, #20 TAB Prov:CASTLE,NIAL K III DO 04/27/21 Hydrochlorothiazide (HYDROCHLOROTHIAZIDE CAPSULE ) 12.5 Mg Capsule, 12.5 MG PO DAILY for . for 30 Days, #30 CAP Prov:CASTLE,NIAL K III DO 04/27/21 Hydrocodone Bit/Acetaminophen (HYDROCODONE-APAP 10-325 ) 1 Tab Tablet, 1 TAB PO PRN Q6HRS PRN for MODERATE TO SEVERE PAIN for 7 Days, #20 TAB Prov:CASTLE,NIAL K III DO 04/27/21 Azithromycin (AZITHROMYCIN TABLET) 250 Mg Tablet, 250 MG PO DAILY for . for 10 Days, #10 TAB Prov:CASTLE,NIAL K III DO 04/27/21 Cephalexin (KEFLEX) 250 Mg Capsule, 750 MG PO BID for . for 10 Days, #20 CAP Prov:CASTLE,NIAL K III DO 04/27/21 Amlodipine Besylate (AMLODIPINE BESYLATE) 10 Mg Tablet, 10 MG PO DAILY for blood pressure for 30 Days, #30 TAB Prov:ADELINA GARCIA MD 09/11/20 Reported Medications Trazodone Hcl (TRAZODONE HCL) 50 Mg Tablet, 1 TAB PO QHS for sleep, #30 TAB 1 Refill 08/24/20 Tiotropium [place] (SPIRIVA) 18 Mcg Cap.w.dev, 1 CAP IH DAILY for sob, #30 CAP 3 Refills 08/24/20 Polyethylene Glycol 3350 (POLYETHYLENE GLYCOL 3350) 2,500 Gm Powder, 17 GM PO DAILY PRN for CONSTIPATION, #255 GM 0 Refills 08/24/20 Omeprazole (OMEPRAZOLE) 40 Mg Capsule.dr, 1 CAP PO DAILY for gerd, #30 CAP 3 Re fills 08/24/20 Metformin Hcl (METFORMIN HCL) 1,000 Mg Tablet, 1000 MG PO DAILYWBKFT for ANTI- DIABETIC, TAB 0 Refills 08/24/20 Lisinopril (LISINOPRIL) 40 Mg Tablet, 1 TAB PO DAILY for htn, #30 TAB 5 Refills 08/24/20 Gabapentin (GABAPENTIN) 300 Mg Capsule, 300 MG PO TID for NEUROGENIC PAIN, CAP 08/24/20 Escitalopram Oxalate (ESCITALOPRAM OXALATE) 20 Mg Tablet, 1 TAB PO DAILY for depression, #30 TAB 5 Refills 08/24/20 Docusate Sodium (DOCUSATE SODIUM) 100 Mg Capsule, 1 CAP PO BID for constipation for 7 Days, #14 CAP 0 Refills 08/24/20 Cyanocobalamin (Vitamin B-12) (B-12) 500 Mcg Tablet, 2 TAB PO DAILY for supplement for 30 Days, #60 TAB 0 Refills 08/24/20 Colchicine (COLCRYS) 0.6 Mg Tablet, 1 TAB PO DAILY PRN for gout for 30 Days, #30 TAB 0 Refills 08/24/20 Atorvastatin Calcium (ATORVASTATIN CALCIUM) 20 Mg Tablet, 1 TAB PO DAILY for cholesterol, #30 TAB 5 Refills 08/24/20 Allopurinol (ALLOPURINOL) 100 Mg Tablet, 1 TAB PO DAILY for gout, #30 TAB 5 Refills 08/24/20 Albuterol Sulfate (PROAIR HFA INHALER) 8.5 Gm Hfa.aer.ad, 2 PUFF IH PRN Q6HRS PRN for WHEEZING for 21 Days, #1 INHALER 0 Refills 08/24/20 Hydrocodone Bit/Acetaminophen (HYDROCODONE-APAP 10325 ) 1 Each Tablet, 1 EACH PO PRN TID 05/12/13 Fluoxetine Hcl (FLUOXETINE HCL) 60 Mg Tablet, 60 MG PO DAILY 05/12/13 Lisinopril/Hydrochlorothiazide (LISINOPRIL-HCTZ 20-12.5 MG TAB) 1 Each Tablet, 1 EACH PO DAILY 05/12/13 Atenolol (ATENOLOL) 50 Mg Tablet, 50 MG PO QHS 05/12/13 ERICK HUBBARD III DO Apr 27, 2021 11:38
--- NOTE | 2021-04-27 12:45 | NUR ---
Discharge Note: PT DISCHARGED HOME WITH SELF CARE. PT LEFT FACILITY WITH BENJY (FRIEND) AT 1218. PT STABLE AND ALERT UPON DISCHARGE. PT HAD NO IV ACCESS TO REMOVE OR TELE BOX. PT EDUCATED ABOUT DISCHARGE MEDICATIONS, DISCHARGE INSTRUCTIONS, WOUND CARE TO L KNEE, AND FOLLOW-UP CARE INSTRUCTIONS, NO CONCERNS VOICED PRIOR TO DISCHARGE. PT LEFT WITH ALL PERSONAL BELONGINGS. Mariah,J Luis,Adriana HALL Discharge instructions and discharge home medications reviewed with Patient and a copy given. All questions have been answered and understanding verbalized.
--- NOTE | 2021-04-27 19:43 | DS ---
DATE OF DISCHARGE: 04/27/2021 ADMITTING DIAGNOSES: Hypertensive urgency, sepsis, pneumonia, lactic acidosis, electrolyte disturbance. DISCHARGE DIAGNOSES: Resolving hypertensive urgency, resolving sepsis, resolving pneumonia, resolving lactic acidosis, resolving electrolyte disturbance and alcohol withdrawal. HOSPITAL COURSE: The patient is a pleasant middle-aged male who presented with sepsis and pneumonia, was admitted. We treated with IV antibiotics, breathing treatments, oxygen. He also developed some alcohol withdrawal. We gave him alcohol withdrawal protocol. Today, I saw and examined him. He is at his baseline. We plan to discharge. DISPOSITION: Home. ACTIVITY: As tolerated. DIET: Low sodium. DISCHARGE MEDICATIONS: Please see the MRAD. Other medications list Xanax 1 b.i.d., azithromycin 250 daily, cephalexin 750 b.i.d., Haldol 5 b.i.d., hydrochlorothiazide 12.5 a day, hydrocodone 10 q.6 hours p.r.n. We will continue his home medications, which include allopurinol, amlodipine, atenolol, atorvastatin, colchicine, B12, docusate, Celexa, gabapentin, lisinopril, metformin, omeprazole. TOTAL TIME: [address]: Shefali TID: [id number]
== END 2021-04-27 12:18 | disposition home or self-care (01) | DRG 871 ==
LOC: ER 23:16 → 6 SOUTH 04-20 03:22 → 5 SOUTH 04-20 18:36
PROVIDERS: ADMIT Internal Medicine; ATTEND Internal Medicine
DX: A41.9 Sepsis, unspecified organism (principal); J15.6 Pneumonia due to other Gram-negative bacteria; F10.239 Alcohol dependence with withdrawal, unspecified; E10.9 Type 1 diabetes mellitus without complications; E83.42 Hypomagnesemia; E87.6 Hypokalemia; F10.229 Alcohol dependence with intoxication, unspecified; I10 Essential (primary) hypertension; I16.0 Hypertensive urgency; Z79.4 Long term (current) use of insulin; Z82.49 Family history of ischemic heart disease and other diseases of the circulatory system; Z87.891 Personal history of nicotine dependence; F41.9 Anxiety disorder, unspecified; F32.A Depression, unspecified; Z20.822 Contact with and (suspected) exposure to COVID-19
CPT/HCPCS: 36415; 36600; 70450; 71045; 80048; 80053; 82805; 82962; 83605; 83690; 83735; 83880; 84100; 84484; 85025; 85379; 87040; 87426; 93005; 94640; 94760; 96361; 96374; G0480; J0456; J0696; J0780; J1200; J1630; J1650; J2060; J2405; J3010; J3475; J3486; J3490; J7030; J7050; U0003; 97116-GP; 99285-25; G0378; Q0163

== ENCOUNTER 2021-04-28 20:46 | Inpatient (IN) | payer OTHER ==
[~2021-04-28] VITALS: Ht 172.7 cm; Wt 118.3 kg
[~2021-04-28 20:46] MED LIST changes: +ALPR1TAB2 PO; +AZIT250T6 PO; +CEPH250C PO; +HALO5TAB PO; +HYDR12.575 PO
--- NOTE | 2021-04-28 22:27 | RAD ---
Exam: Right and left knee 3 views INDICATION: Fall, pain TECHNIQUE: Frontal, lateral and oblique views of the right and left knee Comparisons: None FINDINGS: Right knee: Bone mineralization is normal. No acute or healed fractures. Soft tissues are unremarkable. There is moderate osteoarthritic change greatest in the medial compartment of the knee. Left knee: Left knee arthroplasty changes are noted. Bone mineralization is normal. Soft tissues are unremarkabl e. Joint spaces are well-maintained. IMPRESSION: No acute osseous abnormality of the right or left knee. Electronically signed by: David Gill MD (04/28/2021 10:24 PM) LINDA
--- NOTE | 2021-04-28 22:28 | RAD ---
Exam: Pelvis with left hips 2 views INDICATION: Fall, pain TECHNIQUE: Frontal view of pelvis with frontal and frog-leg lateral views of the left hip. Comparisons: None FINDINGS: Bone mineralization is normal. No acute or healed fractures. Soft tissues are unremarkable. Joint spa valerie are well-maintained. IMPRESSION: No acute osseous abnormality. Electronically signed by: David Gill MD (04/28/2021 10:26 PM) LINDA
--- NOTE | 2021-04-28 22:29 | RAD ---
Exam: Right elbow 3 views INDICATION: Fall, pain TECHNIQUE: Frontal, lateral oblique views of the right elbow Comparisons: None FINDINGS: Mild soft tissue swelling overlying the olecranon. Bone mineralization is normal. No acute or healed fractures. Joint spaces are well-maintained. IMPRESSION: Mild soft tissue swelling overlying the olecranon without underlying osseous abnormality identified. Electronically signed by: David Gill MD (04/28/2021 10:26 PM) LINDA
--- NOTE | 2021-04-28 22:30 | RAD ---
Exam: Chest one view INDICATION: Short of air TECHNIQUE: Frontal view of the chest Comparisons: 04/19/2021 FINDINGS: Heart is mildly enlarged. Pulmonary vessels are within normal limits. Hazy bibasilar airspace disease. No pleural effusion IMPRESSION: Bibasilar airspace disease may relate to atelectasis or developing infectious process. Electronically signed by: David Gill MD (04/28/2021 10:27 PM) LINDA
--- NOTE | 2021-04-28 22:32 | RAD ---
Exam: Bilateral feet 3 views INDICATION: Fall, pain TECHNIQUE: Frontal, lateral and oblique views of the right and left foot Comparisons: None FINDINGS: Right foot: Bone mineralization is normal. No acute or healed fractures. Moderate osteoarthritic change at the fi rst MTP joint. Soft tissue swelling at the forefoot. Left foot: Bone mineralization is normal. No acute or healed fractures. Mild osteoarthritic change first MTP louie nt. Mild soft tissue swelling at the forefoot. IMPRESSION: Soft tissue swelling at the forefoot bilaterally without underlying acute osseous abnormality. Electronically signed by: David Gill MD (04/28/2021 10:30 PM) LINDA
[2021-04-28 22:48] LABS: BASO # 0.1 x10^3/uL (0.0-0.2); BASO % 1 % (0-3); EOS # 0.3 x10^3/uL (0.0-0.7); EOS % 3 % (0-3); HEMATOCRIT 29.8 % (39.0-53.0); HEMOGLOBIN 9.7 g/dL (13.0-17.5); LYMPH # 2.8 x10^3/uL (1.0-4.8); LYMPH % 27 % (24-48); MEAN CORPUSCULAR HEMOGLOBIN 32 pg (25-35); MEAN CORPUSCULAR HGB CONC 33 g/dL (31-37); MEAN CORPUSCULAR VOLUME 98 fL (79-100); MONO # 0.8 x10^3/uL (0.0-1.1); MONO % 7 % (0-9); NEUT # 6.4 x10^3/uL (1.8-7.7); NEUT % 62 % (31-73); PLATELET COUNT 357 x10^3/uL (140-400); RED BLOOD COUNT 3.03 x10^6/uL (4.30-5.70); RED CELL DISTRIBUTION WIDTH 13.4 % (11.5-14.5); WHITE BLOOD COUNT 10.4 x10^3/uL (4.0-11.0)
[2021-04-28 22:52] LABS: CREATININE 2.6 mg/dL (0.7-1.3); GFR 25.5
[2021-04-28 22:58] LABS: ALBUMIN 3.5 g/dL (3.4-5.0); ALBUMIN/GLOBULIN RATIO 1.2 (1.0-1.7); MAGNESIUM 1.8 mg/dL (1.8-2.4); TOTAL BILIRUBIN 0.5 mg/dL (0.2-1.0); TOTAL PROTEIN 6.5 g/dL (6.4-8.2)
[2021-04-28 23:05] LABS: INFLUENZA A PATIENT NEGATIVE (NEGATIVE); INFLUENZA B PATIENT NEGATIVE (NEGATIVE)
--- NOTE | 2021-04-28 23:20 | RAD ---
Exam: CT head, maxillofacial, cervical spine, thoracic spine and lumbar spine INDICATION: Fall, pain TECHNIQUE: Sequential axial images through the head, maxillofacial, cervical spine, thoracic spine an d lumbar spine were obtained without the administration of IV contrast. Exposure: One or more of the following in the visualized dose reduction techniques were utilized for this examination: 1. Automated exposure control 2. Adjustment of the MA and/or KV according to patient size 3. Use of iterative of reconstructive technique Comparisons: None FINDINGS: Head: No focal parenchymal lesion or hemorrhage is identified. There is no midline shift or sulcal effaceme nt. Mild patchy hypodensity in the periventricular white matter. No acute vascular territory infarction i s identified. Mcfadden-white distinction is preserved. The ventricular system is within normal limits without compression hydrocephalus. The basal cisterns are well maintained. Face: Extra cranial soft tissue scalp contusion/hematoma overlying the right frontal region. The visualized portions of the paranasal sinuses and mastoid air cells are well-pneumatized. No acute fractures. Gl obes and orbital contents are normal. Cervical spine: Straightening of cervical spine which may positional. Vertebral body heights are well-maintained. Fracture to the cervical spine is not identified. Mild multilevel spondylotic change in cervical spine with degenerative disc disease greatest at C4-C5 , C5-C6. Mild bilateral facet arthropathy is also noted in cervical spine. Visualized paraspinal soft tissues are unremarkable. Thoracic spine: Vertebral body heights and alignment are well-maintained. Fracture to the thoracic spine is not identified. Mild degenerative disease in the midthoracic spine. Visualized paraspinal soft tissues are unremarkable. Lumbar spine: Vertebral body heights and alignment are well-maintained. Fracture to the lumbar spine is not identified. Mild spondylotic change in cervical spine with degenerative disc disease greatest at L4-L5 and L5-S1. Mild bilateral facet arthropathy also noted lumbar spine. Visualized paraspinal soft tissues are unremarkable. IMPRESSION: 1. No acute intracranial abnormality. 2. Extra cranial soft tissue scalp contusion/hematoma overlying the right frontal region without und erlying osseous abnormality. 3. Negative CT C-spine for acute traumatic injury. 4. Negative CT T spine for acute traumatic injury. 5. Negative CT L-spine for acute traumatic injury. Electronically signed by: David Gill MD (04/28/2021 11:17 PM) [facility]
--- NOTE | 2021-04-29 01:10 | PHYS DOC ---
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 Patient states he was walking down some steps to get out of the house when he fell. Denies any loss of consciousness. Patient is a very poor historian right now. He has visual hallucinations seeing Gnats. He states he was discharged from the hospital 3 days ago with diagnosis of pneumonia and was put on antibiotics. He states during his admission he fell down. Patient is complaining of head pain, neck pain, entire back hurting, bilateral feet pain, bilateral knee pain, right elbow pain and bilateral hip pain. Review of Systems: Review of Systems: Constitutional: Denies fever or chills. [] Eyes: Denies change in visual acuity. [] HENT: Denies nasal congestion or sore throat. [] Respiratory: Denies cough or shortness of breath. [] Cardiovascular: Denies chest pain or edema. [] GI: Denies abdominal pain, nausea, vomiting, bloody stools or diarrhea. [] : Denies dysuria. [] Musculoskeletal: Reports neck pain, back pain, bilateral feet pain, bilateral knee pain, right elbow pain Integument: Denies rash. [] Neurologic: Reports head pain, denies focal weakness or sensory changes. [] . [] Psychiatric: Denies depression or anxiety. [] Heart Score: C/O Chest Pain: N/A Risk Factors: Risk Factors: DM, Current or recent (<one month) smoker, HTN, HLP, family history of CAD, obesity. Risk Scores: Score 0 - 3: 2.5% MACE over next 6 weeks - Discharge Home Score 4 - 6: 20.3% MACE over next 6 weeks - Admit for Clinical Observation Score 7 - 10: 72.7% MACE over next 6 weeks - Early Invasive Strategies Allergies: Allergies: Allergies Coded Allergies Type Severity Reaction Last Updated Verified No Known Drug Allergies 04/28/21 No Physical Exam: PE: Constitutional: Well developed, well nourished, no acute distress, non-toxic appearance. [] HENT: Normocephalic,bilateral external ears normal, oropharynx moist, no oral exudates, nose normal. [] Eyes: Bilateral eyes with periorbital ecchymosis, no entrapment syndrome, PERRLA, EOMI, conjunctiva normal, no discharge. [] Neck: Normal range of motion, diffuse paraspinal muscle tenderness to the cervical spine, no midline cervical spine, supple, no stridor. [] Cardiovascular:Heart rate regular rhythm, no murmur [] Lungs & Thorax: Bilateral breath sounds clear to auscultation [] Abdomen: Bowel sounds normal, soft, no tenderness, no masses, no pulsatile masses. [] Skin: Warm, dry, no erythema, no rash. [] Back: Diffuse paraspinal muscle tenderness to bilateral thoracic, lumbar spine, no midline thoracic or lumbar spine tenderness, no CVA tenderness. [] Extremities: No tenderness, no cyanosis, no clubbing, ROM intact, obese patient, +2 edema bilaterally Neurologic: Right forehead with a mild sized contusion alert and oriented X 3, normal motor function, normal sensory function, no focal deficits noted. Cranial nerves II through XII intact Psychologic: Flat affect, visual hallucinations Current Patient Data: Labs: Laboratory Tests Test 04/28/21 22:27 04/28/21 22:29 White Blood Count 10.4 x10^3/uL (4.0-11.0) Red Blood Count 3.03 x10^6/uL (4.30-5.70) L Hemoglobin 9.7 g/dL (13.0-17.5) L Hematocrit 29.8 % (39.0-53.0) L Mean Corpuscular Volume 98 fL (79-100) Mean Corpuscular Hemoglobin 32 pg (25-35) Mean Corpuscular Hemoglobin Concent 33 g/dL (31-37) Red Cell Distribution Width 13.4 % (11.5-14.5) Platelet Count 357 x10^3/uL (140-400) Neutrophils (%) (Auto) 62 % (31-73) Lymphocytes (%) (Auto) 27 % (24-48) Monocytes (%) (Auto) 7 % (0-9) Eosinophils (%) (Auto) 3 % (0-3) Basophils (%) (Auto) 1 % (0-3) Neutrophils # (Auto) 6.4 x10^3/uL (1.8-7.7) Lymphocytes # (Auto) 2.8 x10^3/uL (1.0-4.8) Monocytes # (Auto) 0.8 x10^3/uL (0.0-1.1) Eosinophils # (Auto) 0.3 x10^3/uL (0.0-0.7) Basophils # (Auto) 0.1 x10^3/uL (0.0-0.2) Sodium Level 137 mmol/L (136-145) Potassium Level 4.0 mmol/L (3.5-5.1) Chloride Level 99 mmol/L (98-107) Carbon Dioxide Level 28 mmol/L (21-32) Anion Gap 10 (6-14) Blood Urea Nitrogen 29 mg/dL (8-26) H Creatinine 2.6 mg/dL (0.7-1.3) H Estimated GFR (Cockcroft-Gault) 25.5 BUN/Creatinine Ratio 11 (6-20) Glucose Level 112 mg/dL (70-99) H Lactic Acid Level 2.2 mmol/L (0.4-2.0) H Calcium Level 8.0 mg/dL (8.5-10.1) L Magnesium Level 1.8 mg/dL (1.8-2.4) Total Bilirubin 0.5 mg/dL (0.2-1.0) Aspartate Amino Transferase (AST) 19 U/L (15-37) Alanine Aminotransferase (ALT) 22 U/L (16-63) Alkaline Phosphatase 83 U/L (46-116) Creatine Kinase 206 U/L (39-308) Creatine Kinase MB (Mass) 4.6 ng/mL (0.0-3.6) H Creatine Kinase MB Relative Index 2.2 % (0-4) Troponin I High Sensitivity 10 ng/L (4-75) RT-Mne-O-Type Natriuretic Peptide 165 pg/mL (0-124) H Total Protein 6.5 g/dL (6.4-8.2) Albumin 3.5 g/dL (3.4-5.0) Albumin/Globulin Ratio 1.2 (1.0-1.7) Procalcitonin 0.11 ng/mL (0.00-0.10) H Influenza Type A Antigen Negative (NEGATIVE) Influenza Type B Antigen Negative (NEGATIVE) SARS-CoV-2 Antigen (Rapid) Negative (NEGATIVE) Laboratory Tests 04/28/21 22:27 Laboratory Tests 04/28/21 22:27 Vital Signs: Vital Signs Date Time Temp Pulse Resp B/P (MAP) Pulse Ox O2 Delivery O2 Flow Rate FiO2 04/29/21 00:30 79 20 101/52 (68) 95 Nasal Cannula 3.0 04/28/21 20:54 98.2 98.2 EKG: EKG: [] Radiology/Procedures: Radiology/Procedures: []PROCEDURE: HIP LEFT 2V WITH PELVIS Exam: Pelvis with left hips 2 views INDICATION: Fall, pain TECHNIQUE: Frontal view of pelvis with frontal and frog-leg lateral views of the left hip. Comparisons: None FINDINGS: Bone mineralization is normal. No acute or healed fractures. Soft tissues are unremarkable. Joint spaces are well-maintained. IMPRESSION: No acute osseous abnormality. Electronically signed by: David Crain MD (04/28/2021 10:26 PM) [facility] DICTATED and SIGNED BY: DAVID CRAIN MD DATE: 04/28/21 [id number] 0 PROCEDURE: CT THORACIC SPINE WO CONTRAST Exam: CT head, maxillofacial, cervical spine, thoracic spine and lumbar spine INDICATION: Fall, pain TECHNIQUE: Sequential axial images through the head, maxillofacial, cervical spine, thoracic spine and lumbar spine were obtained without the administration of IV contrast. Exposure: One or more of the following in the visualized dose reduction techniques were utilized for this examination: 1. Automated exposure control 2. Adjustment of the MA and/or KV according to patient size 3. Use of iterative of reconstructive technique Comparisons: None FINDINGS: Head: No focal parenchymal lesion or hemorrhage is identified. There is no midline shift or sulcal effacement. Mild patchy hypodensity in the periventricular white matter. No acute vascular territory infarction is identified. Mcfadden-white distinction is preserved. The ventricular system is within normal limits without compression hydrocephalus. The basal cisterns are well maintained. Face: Extra cranial soft tissue scalp contusion/hematoma overlying the right frontal region. The visualized portions of the paranasal sinuses and mastoid air cells are well-pneumatized. No acute fractures. Globes and orbital contents are normal. Cervical spine: Straightening of cervical spine which may positional. Vertebral body heights are well-maintained. Fracture to the cervical spine is not identified. Mild multilevel spondylotic change in cervical spine with degenerative disc disease greatest at C4-C5, C5-C6. Mild bilateral facet arthropathy is also noted in cervical spine. Visualized paraspinal soft tissues are unremarkable. Thoracic spine: Vertebral body heights and alignment are well-maintained. Fracture to the thoracic spine is not identified. Mild degenerative disease in the midthoracic spine. Visualized paraspinal soft tissues are unremarkable. Lumbar spine: Vertebral body heights and alignment are well-maintained. Fracture to the lumbar spine is not identified. Mild spondylotic change in cervical spine with degenerative disc disease greatest at L4-L5 and L5-S1. Mild bilateral facet arthropathy also noted lumbar spine. Visualized paraspinal soft tissues are unremarkable. IMPRESSION: 1. No acute intracranial abnormality. 2. Extra cranial soft tissue scalp contusion/hematoma overlying the right frontal region without underlying osseous abnormality. 3. Negative CT C-spine for acute traumatic injury. 4. Negative CT T spine for acute traumatic injury. 5. Negative CT L-spine for acute traumatic injury. Electronically signed by: David Crain MD (04/28/2021 11:17 PM) [facility] DICTATED and SIGNED BY: DAVID CRAIN MD DATE: 04/28/21 [id number] 0 REASON: FALL, PAIN PROCEDURE: FOOT BILAT 3V Exam: Bilateral feet 3 views INDICATION: Fall, pain TECHNIQUE: Frontal, lateral and oblique views of the right and left foot Comparisons: None FINDINGS: Right foot: Bone mineralization is normal. No acute or healed fractures. Moderate osteoarthritic change at the first MTP joint. Soft tissue swelling at the forefoot. Left foot: Bone mineralization is normal. No acute or healed fractures. Mild osteoarthritic change first MTP joint. Mild soft tissue swelling at the forefoot. IMPRESSION: Soft tissue swelling at the forefoot bilaterally without underlying acute osseous abnormality. Electronically signed by: David Crain MD (04/28/2021 10:30 PM) [facility] DICTATED and SIGNED BY: DAVID CRAIN MD DATE: 04/28/[id number] 0 PROCEDURE: ELBOW RIGHT 3V Exam: Right elbow 3 views INDICATION: Fall, pain TECHNIQUE: Frontal, lateral oblique views of the right elbow Comparisons: None FINDINGS: Mild soft tissue swelling overlying the olecranon. Bone mineralization is normal. No acute or healed fractures. Joint spaces are well-maintained. IMPRESSION: Mild soft tissue swelling overlying the olecranon without underlying osseous abnormality identified. Electronically signed by: David Crain MD (04/28/2021 10:26 PM) [facility] DICTATED and SIGNED BY: DAVID CRAIN MD DATE: 04/28/[id number] 0 PROCEDURE: PORTABLE CHEST 1V Exam: Chest one view INDICATION: Short of air TECHNIQUE: Frontal view of the chest Comparisons: 04/19/2021 FINDINGS: Heart is mildly enlarged. Pulmonary vessels are within normal limits. Hazy bibasilar airspace disease. No pleural effusion IMPRESSION: Bibasilar airspace disease may relate to atelectasis or developing infectious process. Electronically signed by: David Crain MD (04/28/2021 10:27 PM) [facility] and SIGNED BY: DAVID CRAIN MD DATE: 04/28/[id number] 0 Course & Med Decision Making: Course & Med Decision Making Pertinent Labs and Imaging studies reviewed. (See chart for details) This a 60-year-old male patient presenting to the ED today to be evaluated after falling at home. Patient was discharged from the hospital 3 days ago after being diagnosed with pneumonia. He also fell during his hospital stay and has quite significant periorbital ecchymosis bilaterally. He arrives in the ED hallucinating seeing "gnats" Patient's O2 sats were 85% on room air on arrival, he was put on oxygen 3 L currently 92%, blood gas was also ordered, temperature 98.2, heart rate 79, respiration 20 on room air, blood pressure 105/52 Patient is complaining of head pain, neck pain, mid and low back pain, bilateral hip pain, bilateral feet pain, right elbow pain. CT of the head, cervical spine, thoracic and lumbar spine are negative for any acute findings, right elbow x-rays, bilateral knee x-rays, bilateral hip x-rays including pelvis are negative for any acute findings CBC with a normal WBC, hemoglobin 9.7 with hematocrit of 29.8, lower than what it was on 04/23/2021 with a hemoglobin of 11.1 and hematocrit of 32.4 CMP with creatinine of 2.6, BUN of 29. UA still pending. lactic 2.2, negative Covid rapid test, negative influenza A and B Patient was started on IV fluids, nephrology consult placed for tomorrow morning, renal duplex for tomorrow morning Admitted under Dr. Bonifacio PONCE pending, VQ scan ordered for a.m. Wyatt Disclaimer: Wyatt Disclaimer: This electronic medical record was generated, in whole or in part, using a voice recognition dictation system. Departure Departure Impression: Primary Impression: Fall down steps Qualified Codes: W10.8XXA - Fall (on) (from) other stairs and steps, initial encounter Additional Impressions: Anemia Qualified Codes: D64.9 - Anemia, unspecified Hypoxia Acute renal failure Qualified Codes: N17.9 - Acute kidney failure, unspecified Back pain Qualified Codes: M54.6 - Pain in thoracic spine Low back pain Qualified Codes: M54.50 - Low back pain, unspecified Neck pain Bilateral knee pain Qualified Codes: M25.561 - Pain in right knee; M25.562 - Pain in left knee Right elbow pain Disposition: ADMITTED INPATIENT Condition: STABLE Referrals: NO PCP (PCP) LANDRY COBURN APRN Apr 29, 2021 01:10
[2021-04-29] MEDS ORDERED: ACETAMINOPHEN 325 MG TABLET. PO PRN (01:30)
[2021-04-29] MEDS ORDERED: IV NORMAL SALINE 1000ML BAG 1,000 ML IV ONE ×2 (01:30→02:00)
[2021-04-29] MEDS ORDERED: ONDANSETRON PF 4 MG/2 ML VIAL. IVP PRN (01:30)
--- NOTE | 2021-04-29 01:35 | NUR ---
The patient, J Luis Lemus S, 60 y/o, M admitted by TJ ALEJO MD, was given written information regarding hospital policies, unit procedures and contact persons. Valuables were checked and all questions answered. Pt. denies needs currently. Will continue to monitor.
[2021-04-29 01:45] VITALS: BP 109/67
[2021-04-29] MEDS ORDERED: DULO60CA7 PO (03:26)
[2021-04-29] MEDS ORDERED: FURO40TA4 PO (03:26)
[2021-04-29] MEDS ORDERED: CARV25TA2 PO (03:26)
[2021-04-29 03:39] LABS: BASE EXCESS COOX 1 mmol/L (-3-3); HCO3 COOX 28 mmol/L (21-28); METHEMOGLOBIN 0.3 % (0.0-1.9); PO2 COOX 63 mmHg (75-108); SAT O2 COOX 89 % (92-99)
[2021-04-29] MEDS: ONDANSETRON PF 4 MG/2 ML VIAL. IVP PRN (04:13)
[2021-04-29 04:57] LABS: PCO2 COOX 61 mmHg (35-46)
--- NOTE | 2021-04-29 06:00 | RAD ---
EXAM: RENAL ULTRASOUND CLINICAL HISTORY: Acute renal failure COMPARISON: None available. TECHNIQUE: Ultrasound examination of the bilateral kidneys and urinary bladder was performed. FINDINGS: The right kidney measures 12.1 x 5.9 x 5.1 cm. The left kidney measures 10.9 x 7.7 x 5.4 cm. Normal c ortical thickness and echogenicity bilaterally. No hydronephrosis. Images of the partially filled urinary bladder are unremarkable. IMPRESSION: No hydronephrosis. Electronically signed by: Doretha العراقي MD (04/29/2021 5:57 AM) [facility]
--- NOTE | 2021-04-29 06:01 | EKG ---
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
[2021-04-29 07:00] VITALS: BP 127/63
[2021-04-29 07:39] LABS: BILIRUBIN,URINE SMALL (NEG); CLARITY,URINE HAZY; COLOR,URINE YELLOW; NITRITE,URINE NEGATIVE (NEG); PROTEIN,URINE 30 mg/dL (NEG-TRACE); UROBILINOGEN,URINE 0.2 mg/dL (0.2 mg/dL)
[2021-04-29 07:41] LABS: BACTERIA,URINE 0 /HPF (0-FEW); BARBITURATES NEG (NEG); BENZODIAZEPINES POS (NEG); CANNABINOIDS NEG (NEG); COCAINE NEG (NEG); METHADONE NEG (NEG); OPIATES POS (NEG); PHENCYCLIDINE NEG (NEG); RBC,URINE 0 /HPF (0-2); WBC,URINE 0 /HPF (0-4)
[2021-04-29 07:42] LABS: AMPHETAMINE/METHAMPHETAMINE NEG (NEG); HYALINE CASTS, URINE MODERATE /HPF
[2021-04-29 11:00] VITALS: BP 111/47
[2021-04-29] MEDS ORDERED: COLCHICINE 0.6 MG TABLET PO PRN (11:15)
[2021-04-29] MEDS ORDERED: ALBUTEROL SULFATE 2.5 MG/3 ML NEBU. INH PRN (11:15)
--- NOTE | 2021-04-29 11:22 | HP ---
DATE OF SERVICE: 04/29/2021 ADMIT DATE: 04/28/2021 CHIEF COMPLAINT: Fall. HISTORY OF PRESENT ILLNESS: The patient is a pleasant 60-year-old male who drinks way too much. He also smokes a lot. We just discharged him a day or two ago after 10 days because it was difficult getting home because of alcohol withdrawal. I sent him home with all the right meds. He has been apparently stable, but he fell. He complains of some headache and neck pain and back pain, bilateral feet pain, knee pain, elbow pain and hip pain. I discussed the case with ER physician. We are admitting the patient. PAST MEDICAL HISTORY: Severe alcoholism, severe tobacco abuse, psychiatric issues, chronic pain, probable narcotic dependence, anxiety, depression, hypertension, multiple hernia repairs. He has a massive abdominal hernia. ALLERGIES: None. FAMILY HISTORY: Diabetes. SOCIAL HISTORY: He apparently quit smoking. He drinks heavily. No drugs. MEDICATIONS: Reviewed. Please refer to the MRAD. REVIEW OF SYSTEMS: GENERAL: No history of weight change, weakness or fevers. SKIN: No bruising, hair changes or rashes. EYES: No blurred, double or loss of vision. NOSE AND THROAT: No history of nosebleeds, hoarseness or sore throat. HEART: No history of palpitations, chest pain or shortness of breath on exertion. LUNGS: Denies cough, hemoptysis, wheezing or shortness of breath. GASTROINTESTINAL: Denies changes in appetite, nausea, vomiting, diarrhea or constipation. GENITOURINARY: No history of frequency, urgency, hesitancy or nocturia. NEUROLOGIC: Denies history of numbness, tingling, tremor or weakness. PSYCHIATRIC: No history of panic, anxiety or depression. ENDOCRINE: No history of heat or cold intolerance, polyuria or polydipsia. EXTREMITIES: Denies muscle weakness, joint pain, pain on walking or stiffness. PHYSICAL EXAMINATION: VITALS: Within normal limits and are stable. GENERAL: No apparent distress. Alert and oriented. HEENT: Normal cephalic atraumatic, external auditory canals are patent EYES: Extraocular muscles are intact, pupils are equally round and reactive to light and accommodation MUSCULOSKELETAL: Well developed, well nourished, good range of motion ENDOCRINE: No thyromegaly was palpated LYMPHATICS: No cervical chain or axillary nodes were noted HEMATOPOIETIC: No bruising NECK: Supple, no JVD, no thyromegaly was noted. LUNGS: Clear to auscultation in all lung ruiz without rhonchi or wheezing. HEART: RRR, S1, S2 present. Peripheral pulses intact, no obvious murmurs were noted. ABDOMEN: He has a massive abdominal hernia. Please see the pictures. EXTREMITIES: Without any cyanosis, clubbing, or edema. Pedal pulses intact, Homans sign is negative. NEUROLOGIC: Normal speech, normal tone. A and O x 3, moves all extremities, no obvious focal deficits. PSYCHIATRIC: Normal affect, normal mood. Stable. SKIN: He has multiple tattoos. VASCULAR: Good capillary refill, neurovascular bundle appears to be intact. LABORATORY DATA: White count 10, hemoglobin 9, platelets 157. BUN is high at 29, creatinine is high at 2.6. Procalcitonin 0.11. Drug screen positive for opiates and benzos, but I sent him home with prescription for those. Urinalysis negative. COVID testings negative. Multiple images were done, no acute fracture. ASSESSMENT AND PLAN: Fall in a middle-aged male who drinks too much. He has intractable pain. For now, we are using p.r.n. pain meds, p.r.n. Zofran, home meds. DVT prophylaxis. Full code. If stable, we hope to discharge tomorrow. JIN/DULCE MARIA DR: JIN/vale TID: [id number]
--- NOTE | 2021-04-29 11:22 | PDOC2 ---
CONSULT Date of Consult Date of Consult DATE: 04/29/21 TIME: 11:10 Reason for Consult Reason for Consult: JOSE DE JESUS Referring Physician Referring Physician: SAPNA Identification/Chief Complaint Chief Complaint FALL Source Source: Chart review History of Present Illness Reason for Visit: THIS IS A 60 YR OLD WITH A FALL. HE IS A VERY POOR HISTORIAN AND CONFUSED. IMAGING OF EXTREMITIES AND HEAD AND NECK NEG FOR ANY ACUTE FINDINGS OTHER THAN SOFT TISSUE INJURIES. RENAL CONSULT DUE TO CR OF 2.6. HE DOES NOT HAVE ANY CKD. NO OTHER HX REPORTED. HIS RENAL SONOGRAM IS NEG FOR ANY ACUTE FINDINGS OR CHANGES IN RENAL MORPHOLOGY. MOST RECENTLY HE WAS ADMITTED WITH PNEUMONIA AND SEPSIS AND ELECTROLYTE ABNORMALITIES. THESE WERE TREATED AND HE WAS DISCHARGED HOME. HE DOES NOT REMEMBER ANY DETAILS OF HIS FALL. HE DOES HAVE A HX OF ETOH ABUSE AND WITHDRAWAL. UDS POS FOR BENZOS AND OPIATES BUT NEG FOR ALCOHOL. HE WAS HAVING HALLUCINATIONS PER REPORT AND THEREFORE THERE IS CONCERN OF REPEAT WITHDRAWAL EPISODE. ALSO OF NOTED IS HYPOXIA AND HYPERCARBIA ON HIS ABG REPORT Past Medical History Cardiovascular: HTN Pulmonary: Other GI: GERD Psych: Anxiety, Addictions, Depression Musculoskeletal: Osteoarthritis Rheumatologic: Gout Renal/: No pertinent hx Endocrine: Diabetes Past Surgical History Past Surgical History: Hernia Repair, Total knee replacement Family History Family History: Family History Unknown Social History ALCOHOL: heavy Drugs: None Lives: with Family Current Problem List Problem List Problems Medical Problems: (1) Acute renal failure Status: Acute (2) Anemia Status: Acute (3) Back pain Status: Acute (4) Bilateral knee pain Status: Acute (5) Fall down steps Status: Acute (6) Hypoxia Status: Acute (7) Low back pain Status: Acute (8) Neck pain Status: Acute (9) Right elbow pain Status: Acute Current Medications Current Medications Current Medications Sodium Chloride 1,000 ml @ 1,000 mls/hr 1X ONCE IV Last administered on 04/29/21at 01:13; Start 04/29/21 at 01:30; Stop 04/29/21 at 02:29; Status DC Ondansetron HCl (Zofran) 4 mg PRN Q8HRS PRN IVP NAUSEA/VOMITING 1ST CHOICE; Start 04/29/21 at 01:30; Stop 04/29/21 at 04:05; Status DC Acetaminophen (Tylenol) 650 mg PRN Q4HRS PRN PO FEVER > 100.3'F Last administered on 04/29/21at 03:43; Start 04/29/21 at 01:30; Stop 04/29/21 at 04:05; Status DC Sodium Chloride 1,000 ml @ 125 mls/hr 1X ONCE IV Last administered on 04/29/21a t 02:06; Start 04/29/21 at 02:00; Stop 04/29/21 at 09:59; Status DC Ondansetron HCl (Zofran) 4 mg PRN Q4HRS PRN IVP NAUSEA/VOMITING 1ST CHOICE Last administered on 04/29/21at 04:13; Start 04/29/21 at 04:00 Acetaminophen (Tylenol) 650 mg PRN Q6HRS PRN PO MILD PAIN / TEMP > 100.3'F; Start 04/29/21 at 04:00 Albuterol Sulfate (Ventolin Neb Soln) 1 mg PRN Q6HRS PRN INH WHEEZING; Start 04/29/21 at 11:15; Status UNV Allopurinol (Zyloprim) 100 mg DAILY PO ; Start 04/30/21 at 09:00; Status UNV Atorvastatin Calcium (Lipitor) 20 mg DAILY PO ; Start 04/30/21 at 09:00; Status UNV Azithromycin (Zithromax) 250 mg DAILY PO ; Start 04/30/21 at 09:00; Status UNV Cephalexin HCl (Keflex) 750 mg BID PO ; Start 04/29/21 at 21:00; Status UNV Colchicine (Colcrys) 0.6 mg DAILY PRN PO gout; Start 04/29/21 at 11:15; Status UNV Furosemide (Lasix) 40 mg DAILY PO ; Start 04/30/21 at 09:00; Status UNV Gabapentin (Neurontin) 300 mg TID PO ; Start 04/29/21 at 14:00; Status UNV Haloperidol (Haldol) 5 mg BID PO ; Start 04/29/21 at 21:00; Status UNV Hydrochlorothiazide (Microzide) 12.5 mg DAILY PO ; Start 04/30/21 at 09:00; Status UNV Acetaminophen/ Hydrocodone Bitart (Lortab 10/325) 1 tab PRN Q6HRS PRN PO MODERATE TO SEVERE PAIN; Start 04/29/21 at 11:15; Status UNV Lisinopril (Prinivil) 40 mg DAILY PO ; Start 04/30/21 at 09:00; Status UNV Non-Formulary Medication (Carvedilol ) 25 mg BIDWMEALS PO ; Start 04/29/21 at 17:00; Status UNV Non-Formulary Medication (Duloxetine Hcl (Cymbalta)) 1 cap DAILY PO ; Start 04/30/21 at 09:00; Status UNV Non-Formulary Medication (Metformin Hcl ) 1,000 mg BID WMEALS PO ; Start 04/29/21 at 18:00; Status UNV Non-Formulary Medication (Polyethylene Glycol 3350 ) 17 gm DAILY PRN PO CONSTIPATION; Start 04/29/21 at 11:15; Status UNV Non-Formulary Medication (Tiotropium Chester (Spiriva)) 1 cap DAILY IH ; Start 04/30/21 at 09:00; Status UNV Active Scripts Active Haloperidol 5 Mg Tablet 1 Tab PO BID 10 Days Hydrochlorothiazide Capsule (Hydrochlorothiazide) 12.5 Mg Capsule 12.5 Mg PO DAILY 30 Days Hydrocodone-Apap 10-325 (Hydrocodone Bit/Acetaminophen) 1 Tab Tablet 1 Tab PO PRN Q6HRS PRN 7 Days Azithromycin Tablet (Azithromycin) 250 Mg Tablet 250 Mg PO DAILY 10 Days Keflex (Cephalexin) 250 Mg Capsule 750 Mg PO BID 10 Days Reported Cymbalta (Duloxetine Hcl) 60 Mg Capsule.dr 1 Cap PO DAILY Carvedilol 25 Mg Tablet 25 Mg PO BIDWMEALS Furosemide 40 Mg Tablet 1 Tab PO DAILY Spiriva (Tiotropium Chester) 18 Mcg Cap.w.dev 1 Cap IH DAILY Polyethylene Glycol 3350 2,500 Gm Powder 17 Gm PO DAILY PRN Metformin Hcl 1,000 Mg Tablet 1,000 Mg PO BID WMEALS Lisinopril 40 Mg Tablet 1 Tab PO DAILY Gabapentin 300 Mg Capsule 300 Mg PO TID Colcrys (Colchicine) 0.6 Mg Tablet 1 Tab PO DAILY PRN 30 Days Atorvastatin Calcium 20 Mg Tablet 1 Tab PO DAILY Allopurinol 100 Mg Tablet 1 Tab PO DAILY Proair Hfa Inhaler (Albuterol Sulfate) 8.5 Gm Hfa.aer.ad 2 Puff IH PRN Q6HRS PRN 21 Days Allergies Allergies: Coded Allergies: No Known Drug Allergies (Unverified , 04/28/21) ROS Review of System UNABLE TO OBTAIN Physical Exam General: Alert, Cooperative HEENT: Atraumatic, Other (DRY MUCOSA) Lungs: Other (DECREASED AT BASES) Heart: Regular rate Abdomen: Normal bowel sounds, No tenderness Extremities: No cyanosis Skin: No breakdown Neuro: Other (NO ASYMMETRY. CONFUSED) Psych/Mental Status: Other (CONFUSED) MUSCULOSKELETAL: No joint tenderness, No deformity, No swelling Vitals VITALS Vital Signs Date Time Temp Pulse Resp B/P (MAP) Pulse Ox O2 Delivery O2 Flow Rate FiO2 04/29/21 08:16 98 BiPAP/CPAP 04/29/21 07:00 96.1 71 16 127/63 (84) 96.1 04/29/21 02:00 3.0 Labs Labs Laboratory Tests Test 04/28/21 22:27 04/28/21 22:29 04/29/21 01:45 04/29/21 03:14 White Blood Count 10.4 x10^3/uL (4.0-11.0) Red Blood Count 3.03 x10^6/uL (4.30-5.70) Hemoglobin 9.7 g/dL (13.0-17.5) Hematocrit 29.8 % (39.0-53.0) Mean Corpuscular Volume 98 fL (79-100) Mean Corpuscular Hemoglobin 32 pg (25-35) Mean Corpuscular Hemoglobin Concent 33 g/dL (31-37) Red Cell Distribution Width 13.4 % (11.5-14.5) Platelet Count 357 x10^3/uL (140-400) Neutrophils (%) (Auto) 62 % (31-73) Lymphocytes (%) (Auto) 27 % (24-48) Monocytes (%) (Auto) 7 % (0-9) Eosinophils (%) (Auto) 3 % (0-3) Basophils (%) (Auto) 1 % (0-3) Neutrophils # (Auto) 6.4 x10^3/uL (1.8-7.7) Lymphocytes # (Auto) 2.8 x10^3/uL (1.0-4.8) Monocytes # (Auto) 0.8 x10^3/uL (0.0-1.1) Eosinophils # (Auto) 0.3 x10^3/uL (0.0-0.7) Basophils # (Auto) 0.1 x10^3/uL (0.0-0.2) Sodium Level 137 mmol/L (136-145) Potassium Level 4.0 mmol/L (3.5-5.1) Chloride Level 99 mmol/L (98-107) Carbon Dioxide Level 28 mmol/L (21-32) Anion Gap 10 (6-14) Blood Urea Nitrogen 29 mg/dL (8-26) Creatinine 2.6 mg/dL (0.7-1.3) Estimated GFR (Cockcroft-Gault) 25.5 BUN/Creatinine Ratio 11 (6-20) Glucose Level 112 mg/dL (70-99) Lactic Acid Level 2.2 mmol/L (0.4-2.0) 1.0 mmol/L (0.4-2.0) Calcium Level 8.0 mg/dL (8.5-10.1) Magnesium Level 1.8 mg/dL (1.8-2.4) Total Bilirubin 0.5 mg/dL (0.2-1.0) Aspartate Amino Transf (AST/SGOT) 19 U/L (15-37) Alanine Aminotransferase (ALT/SGPT) 22 U/L (16-63) Alkaline Phosphatase 83 U/L (46-116) Creatine Kinase 206 U/L (39-308) Creatine Kinase MB (Mass) 4.6 ng/mL (0.0-3.6) Creatine Kinase MB Relative Index 2.2 % (0-4) Troponin I High Sensitivity 10 ng/L (4-75) 9 ng/L (4-75) GE-Csd-T-Type Natriuretic Peptide 165 pg/mL (0-124) Total Protein 6.5 g/dL (6.4-8.2) Albumin 3.5 g/dL (3.4-5.0) Albumin/Globulin Ratio 1.2 (1.0-1.7) Procalcitonin 0.11 ng/mL (0.00-0.10) Influenza Type A Antigen Negative (NEGATIVE) Influenza Type B Antigen Negative (NEGATIVE) SARS-CoV-2 Antigen (Rapid) Negative (NEGATIVE) Ethyl Alcohol Level < 10 mg/dL (0-10) O2 Saturation 89 % (92-99) Arterial Blood pH 7.29 (7.35-7.45) Arterial Blood pCO2 at Patient Temp 61 mmHg (35-46) Arterial Blood pO2 at Patient Temp 63 mmHg (75-108) Arterial Blood HCO3 28 mmol/L (21-28) Arterial Blood Base Excess 1 mmol/L (-3-3) Oxyhemoglobin 88.0 % Methemoglobin 0.3 % (0.0-1.9) Carbon Monoxide, Quantitative 0.7 % (0.0-1.9) FiO2 3lnc Test 04/29/21 07:15 04/29/21 07:30 Urine Collection Type Unknown Urine Color Yellow Urine Clarity Hazy Urine pH 5.0 (<5.0-8.0) Urine Specific Chambers 1.025 (1.000-1.030) Urine Protein 30 mg/dL (NEG-TRACE) Urine Glucose (UA) Negative mg/dL (NEG) Urine Ketones (Stick) Negative mg/dL (NEG) Urine Blood Negative (NEG) Urine Nitrite Negative (NEG) Urine Bilirubin Small (NEG) Urine Urobilinogen Dipstick 0.2 mg/dL (0.2 mg/dL) Urine Leukocyte Esterase Negative (NEG) Urine RBC 0 /HPF (0-2) Urine WBC 0 /HPF (0-4) Urine Squamous Epithelial Cells Occ /LPF Urine Bacteria 0 /HPF (0-FEW) Urine Hyaline Casts Moderate /HPF Urine Mucus Slight /LPF Urine Opiates Screen Pos (NEG) Urine Methadone Screen Neg (NEG) Urine Barbiturates Neg (NEG) Urine Phencyclidine Screen Neg (NEG) Urine Amphetamine/Methamphetamine Neg (NEG) Urine Benzodiazepines Screen Pos (NEG) Urine Cocaine Screen Neg (NEG) Urine Cannabinoids Screen Neg (NEG) Urine Ethyl Alcohol Neg (NEG) Troponin I High Sensitivity 7 ng/L (4-75) Laboratory Tests Test 04/28/21 22:27 04/28/21 22:29 04/29/21 01:45 04/29/21 03:14 White Blood Count 10.4 x10^3/uL (4.0-11.0) Red Blood Count 3.03 x10^6/uL (4.30-5.70) Hemoglobin 9.7 g/dL (13.0-17.5) Hematocrit 29.8 % (39.0-53.0) Mean Corpuscular Volume 98 fL (79-100) Mean Corpuscular Hemoglobin 32 pg (25-35) Mean Corpuscular Hemoglobin Concent 33 g/dL (31-37) Red Cell Distribution Width 13.4 % (11.5-14.5) Platelet Count 357 x10^3/uL (140-400) Neutrophils (%) (Auto) 62 % (31-73) Lymphocytes (%) (Auto) 27 % (24-48) Monocytes (%) (Auto) 7 % (0-9) Eosinophils (%) (Auto) 3 % (0-3) Basophils (%) (Auto) 1 % (0-3) Neutrophils # (Auto) 6.4 x10^3/uL (1.8-7.7) Lymphocytes # (Auto) 2.8 x10^3/uL (1.0-4.8) Monocytes # (Auto) 0.8 x10^3/uL (0.0-1.1) Eosinophils # (Auto) 0.3 x10^3/uL (0.0-0.7) Basophils # (Auto) 0.1 x10^3/uL (0.0-0.2) Sodium Level 137 mmol/L (136-145) Potassium Level 4.0 mmol/L (3.5-5.1) Chloride Level 99 mmol/L (98-107) Carbon Dioxide Level 28 mmol/L (21-32) Anion Gap 10 (6-14) Blood Urea Nitrogen 29 mg/dL (8-26) Creatinine 2.6 mg/dL (0.7-1.3) Estimated GFR (Cockcroft-Gault) 25.5 BUN/Creatinine Ratio 11 (6-20) Glucose Level 112 mg/dL (70-99) Lactic Acid Level 2.2 mmol/L (0.4-2.0) 1.0 mmol/L (0.4-2.0) Calcium Level 8.0 mg/dL (8.5-10.1) Magnesium Level 1.8 mg/dL (1.8-2.4) Total Bilirubin 0.5 mg/dL (0.2-1.0) Aspartate Amino Transf (AST/SGOT) 19 U/L (15-37) Alanine Aminotransferase (ALT/SGPT) 22 U/L (16-63) Alkaline Phosphatase 83 U/L (46-116) Creatine Kinase 206 U/L (39-308) Creatine Kinase MB (Mass) 4.6 ng/mL (0.0-3.6) Creatine Kinase MB Relative Index 2.2 % (0-4) Troponin I High Sensitivity 10 ng/L (4-75) 9 ng/L (4-75) XN-Gjx-I-Type Natriuretic Peptide 165 pg/mL (0-124) Total Protein 6.5 g/dL (6.4-8.2) Albumin 3.5 g/dL (3.4-5.0) Albumin/Globulin Ratio 1.2 (1.0-1.7) Procalcitonin 0.11 ng/mL (0.00-0.10) Influenza Type A Antigen Negative (NEGATIVE) Influenza Type B Antigen Negative (NEGATIVE) SARS-CoV-2 Antigen (Rapid) Negative (NEGATIVE) Ethyl Alcohol Level < 10 mg/dL (0-10) O2 Saturation 89 % (92-99) Arterial Blood pH 7.29 (7.35-7.45) Arterial Blood pCO2 at Patient Temp 61 mmHg (35-46) Arterial Blood pO2 at Patient Temp 63 mmHg (75-108) Arterial Blood HCO3 28 mmol/L (21-28) Arterial Blood Base Excess 1 mmol/L (-3-3) Oxyhemoglobin 88.0 % Methemoglobin 0.3 % (0.0-1.9) Carbon Monoxide, Quantitative 0.7 % (0.0-1.9) FiO2 3lnc Test 04/29/21 07:15 04/29/21 07:30 Urine Collection Type Unknown Urine Color Yellow Urine Clarity Hazy Urine pH 5.0 (<5.0-8.0) Urine Specific Chambers 1.025 (1.000-1.030) Urine Protein 30 mg/dL (NEG-TRACE) Urine Glucose (UA) Negative mg/dL (NEG) Urine Ketones (Stick) Negative mg/dL (NEG) Urine Blood Negative (NEG) Urine Nitrite Negative (NEG) Urine Bilirubin Small (NEG) Urine Urobilinogen Dipstick 0.2 mg/dL (0.2 mg/dL) Urine Leukocyte Esterase Negative (NEG) Urine RBC 0 /HPF (0-2) Urine WBC 0 /HPF (0-4) Urine Squamous Epithelial Cells Occ /LPF Urine Bacteria 0 /HPF (0-FEW) Urine Hyaline Casts Moderate /HPF Urine Mucus Slight /LPF Urine Opiates Screen Pos (NEG) Urine Methadone Screen Neg (NEG) Urine Barbiturates Neg (NEG) Urine Phencyclidine Screen Neg (NEG) Urine Amphetamine/Methamphetamine Neg (NEG) Urine Benzodiazepines Screen Pos (NEG) Urine Cocaine Screen Neg (NEG) Urine Cannabinoids Screen Neg (NEG) Urine Ethyl Alcohol Neg (NEG) Troponin I High Sensitivity 7 ng/L (4-75) Images Images PATIENT: J Luis Lemus S ACCOUNT: [id number] : 1960 LOCATION: ER AGE: 60 SEX: M EXAM STATUS: REG ER ORD. PHYSICIAN: LANDRY COBURN APRN REASON: SOA PROCEDURE: PORTABLE CHEST 1V Exam: Chest one view INDICATION: Short of air TECHNIQUE: Frontal view of the chest Comparisons: 04/19/2021 FINDINGS: Heart is mildly enlarged. Pulmonary vessels are within normal limits. Hazy bibasilar airspace disease. No pleural effusion IMPRESSION: Bibasilar airspace disease may relate to atelectasis or developing infectious process. Electronically signed by: David Gill MD (04/28/2021 10:27 PM) [id number] Assessment/Plan Assessment/Plan IMP FALL JOSE DE JESUS-CR OF 2.6-NO CKD-RENAL SONO NEG DEHYDRATION RECENT PNEUMONIA ETOH ABUSE HX WITH WITHDRAWAL HX HYPERCARBIC HYPOXIC ACUTE RESP FAILURE ACUTE MET ENCEPHALOPATHY RIGHT FRONTAL SOFT TISSUE SCALP HEMATOMA PLAN HOLD LISINOPRIL AND DIURETICS HOLD METFORMIN CONSIDER BIPAP AND PULM EVAL CONSIDER ANTIBIOTICS CHECK CPK CHECK UA HYDRATION WILL FOLLOW CHRISSY DE LA CRUZ MD Apr 29, 2021 11:22
[2021-04-29] MEDS ORDERED: POLYETHYLENE GLYCOL 3350 17 GM PACKET. PO PRN (11:45)
[2021-04-29] MEDS: IV NORMAL SALINE 1000ML BAG 1,000 ML IV SCH (11:52)
[2021-04-29] MEDS: AZITHROMYCIN 250 MG TABLET. PO SCH (11:53)
[2021-04-29] MEDS: HALOPERIDOL 5 MG TABLET. PO SCH ×2 (11:53→19:38)
[2021-04-29] MEDS: ALLOPURINOL 100 MG TABLET. PO SCH (11:53)
[2021-04-29] MEDS: DULoxetine HCL 30 MG CAPSULE.DR PO SCH (11:54)
[2021-04-29] MEDS: HYDROcodone/APAP 10/325 1 TAB TABLET PO PRN ×2 (11:55→23:00)
[2021-04-29] MEDS: IPRATRPIUM/ALBUTEROL 0.5/2.5MG 3 ML NEBU. NEB SCH ×3 (12:00→20:00)
--- NOTE | 2021-04-29 12:36 | NUR ---
SW following. Discussed with RN, pt from home, on the bipap whilst sleeping, ada diet. PT/OT ordered, rapid COVID-19 negative. SW will continue to follow.
[2021-04-29] MEDS: GABAPENTIN 300 MG CAPSULE. PO SCH ×2 (14:00→19:33)
--- NOTE | 2021-04-29 14:00 | NUR ---
Wound/Ostomy Care Wound Type/Assessment: Patient seen per wound care consult. See wound assessment. Patient stated he had a recent fall at home. Patient has abrasions to the right and left knee. The right knee is scabbed and the left knee is closed but is fluctuant with and intact blister, indurated, and very red to the erickson-wound. Skin prep applied and encouraged patient to monitor it closely as it has potential to become infected very easily. Treatment Recommendations/Plan: Skin prep daily to the right knee. Education provided: Patient educated on wound care and PU prevention. Offloading surface/device: N/A Recommended Referrals/Tests: N/A Discharge Recommendations for dressings: No other wounds noted. Call light in reach. Wound care will follow up on 05/08/21 if needed.
[2021-04-29 15:00] VITALS: BP 129/59
[2021-04-29] MEDS ORDERED: chlordiazePOXIDE HCL 25 MG CAPSULE PO PRN (17:15)
[2021-04-29] MEDS ORDERED: ALBUTEROL SULFATE 2.5 MG/3 ML NEBU. NEB PRN (17:22)
[2021-04-29] MEDS: CARVEDILOL 12.5 MG TABLET. PO SCH (17:37)
[2021-04-29 19:00] VITALS: BP 136/64
[2021-04-29] MEDS: ATORVASTATIN CALCIUM 20 MG TABLET PO SCH (19:33)
[2021-04-29] MEDS ORDERED: CEPHALEXIN 250 MG CAPSULE. PO SCH (21:00)
--- NOTE | 2021-04-29 21:00 | NUR ---
Pt. refusing to wear bipap this evening. Pt. warned of consequences. Verbalized understanding and will let RN know if he changes his mind. Stated he just wants to get some sleep. Pt. get upset when bed alarm goes off. Reinforced need for bed alarm and need to call prior to getting up due to fall risk and recent falls. Verbalized understanding. Will continue to reinforce.
[2021-04-29 23:00] VITALS: BP 142/68
[2021-04-30] MEDS: IV NORMAL SALINE 1000ML BAG 1,000 ML IV SCH ×2 (01:25→15:32)
[2021-04-30 03:00] VITALS: BP 149/68
[2021-04-30] MEDS: HYDROcodone/APAP 10/325 1 TAB TABLET PO PRN ×3 (05:07→20:12)
[2021-04-30 07:00] VITALS: BP 151/84
[2021-04-30] MEDS: IPRATRPIUM/ALBUTEROL 0.5/2.5MG 3 ML NEBU. NEB SCH ×2 (07:15→11:15)
[2021-04-30] MEDS: AZITHROMYCIN 250 MG TABLET. PO SCH (08:11)
[2021-04-30] MEDS: ALLOPURINOL 100 MG TABLET. PO SCH (08:11)
[2021-04-30] MEDS: CARVEDILOL 12.5 MG TABLET. PO SCH ×2 (08:11→17:42)
[2021-04-30] MEDS: DULoxetine HCL 30 MG CAPSULE.DR PO SCH (08:11)
[2021-04-30] MEDS: GABAPENTIN 300 MG CAPSULE. PO SCH ×3 (08:11→20:12)
[2021-04-30] MEDS: HALOPERIDOL 5 MG TABLET. PO SCH ×2 (08:12→20:12)
[2021-04-30 08:20] LABS: CALCIUM 7.8 mg/dL (8.5-10.1); GFR 76.7; POTASSIUM 4.5 mmol/L (3.5-5.1)
[2021-04-30] MEDS ORDERED: LISINOPRIL 20 MG TABLET PO SCH (09:00)
[2021-04-30] MEDS ORDERED: NON FORMULARY ITEM (Tiotropium Bromide (Spiriva) 1 CAP) IH SCH (09:00)
[2021-04-30] MEDS ORDERED: FUROSEMIDE 40 MG TABLET. PO SCH (09:00)
[2021-04-30] MEDS ORDERED: hydroCHLOROthiazide 12.5 MG CAPSULE PO SCH (09:00)
--- NOTE | 2021-04-30 10:21 | PDOC ---
Renal-Progress Notes Subjective Notes Notes NO NEW COMPLAINTS History of Present Illness Hx of present illness STABLE Vitals Vitals Vital Signs Date Time Temp Pulse Resp B/P (MAP) Pulse Ox O2 Delivery O2 Flow Rate FiO2 04/30/21 08:30 Nasal Cannula 4.0 04/30/21 08:11 72 151/84 04/30/21 07:00 98.0 20 97 98.0 Weight Weight [ ] I.O. Intake and Output Intake and Output 04/30/21 07:00 Intake Total 3280 ml Output Total 600 ml Balance 2680 ml Intake Oral 2280 ml IV Total 1000 ml Output Urine Total 600 ml # Voids 3 # Bowel Movements 2 Labs Labs Laboratory Tests Test 04/30/21 07:35 Sodium Level 142 mmol/L (136-145) Potassium Level 4.5 mmol/L (3.5-5.1) Chloride Level 104 mmol/L (98-107) Carbon Dioxide Level 32 mmol/L (21-32) Anion Gap 6 (6-14) Blood Urea Nitrogen 26 mg/dL (8-26) Creatinine 1.0 mg/dL (0.7-1.3) Estimated GFR (Cockcroft-Gault) 76.7 Glucose Level 130 mg/dL (70-99) Calcium Level 7.8 mg/dL (8.5-10.1) Micro Micro Microbiology 04/29/21 Blood Culture - Preliminary, Resulted NO GROWTH AFTER 1 DAY Review of Systems Constitutional: yes: other (CONFUSED) Physical Exam General Appearance: no apparent distress Skin: warm Respiratory: bilateral CTA Heart: S1S2 Abdomen: soft, bowel sounds present Genitourinary: bladder flat Extremities: pulses present Neurology: alert, confused Assessment Assessment IMP FALL JOSE DE JESUS-RESOLVED DEHYDRATION RECENT PNEUMONIA ETOH ABUSE HX WITH WITHDRAWAL HX HYPERCARBIC HYPOXIC ACUTE RESP FAILURE ACUTE MET ENCEPHALOPATHY-IMPROVED RIGHT FRONTAL SOFT TISSUE SCALP HEMATOMA PLAN OK TO RESUME VARSHA-I AND METFORMIN ENC PO WILL SIGNOFF CHRISSY DE LA CRUZ MD Apr 30, 2021 10:21
[2021-04-30 11:00] VITALS: BP 155/81
--- NOTE | 2021-04-30 13:30 | PDOC ---
[employer] PROGRESS NOTE Date of Service DOS: DATE: 04/30/21 TIME: 13:11 Chief Complaint Chief Complaint COVID-19 pneumonia Alcohol abuse Mechanical fall JOSE DE JESUS due to vasomotor nephropathy Lactic acidemia Polysubstance abuse We will start on 10-day IV steroid course Continue O2 supplementation History of Present Illness History of Present Illness 60-year-old male who drinks way too much. He also smokes a lot. We just discharged him a day or two ago after 10 days because it was difficult getting home because of alcohol withdrawal. He has been apparently stable, but he fell. He complains of some headache and neck pain and back pain,bilateral feet pain, knee pain, elbow pain and hip pain. Admitted for further management and found to have COVID-19 infection. Patient is also requiring oxygen at this time and having shortness of breath. 04/30/2021 No acute events overnight. Patient seen examined bedside. Alert and awake and lethargic appearing. Afebrile and saturating 98% on 4 L nasal cannula. Mild dyspnea upon rest. Vitals/I&O Vitals/I&O: Vital Signs Date Time Temp Pulse Resp B/P (MAP) Pulse Ox O2 Delivery O2 Flow Rate FiO2 04/30/21 11:54 Nasal Cannula 4.0 04/30/21 11:00 98.0 73 22 155/81 (105) 98 98.0 I & O 04/29/21 04/29/21 04/30/21 15:00 23:00 07:00 Intake Total 720 ml 600 ml 1960 ml Output Total 300 ml 300 ml Balance 420 ml 300 ml 1960 ml Physical Exam General: Alert, Cooperative Heart: Regular rate Lungs: Clear, Other Abdomen: Normal bowel sounds, No tenderness Extremities: No cyanosis Skin: No breakdown Labs Labs: Laboratory Tests Test 04/30/21 07:35 Sodium Level 142 mmol/L (136-145) Potassium Level 4.5 mmol/L (3.5-5.1) Chloride Level 104 mmol/L (98-107) Carbon Dioxide Level 32 mmol/L (21-32) Anion Gap 6 (6-14) Blood Urea Nitrogen 26 mg/dL (8-26) Creatinine 1.0 mg/dL (0.7-1.3) Estimated GFR (Cockcroft-Gault) 76.7 Glucose Level 130 mg/dL (70-99) Calcium Level 7.8 mg/dL (8.5-10.1) Assessment and Plan Assessmemt and Plan Problems Medical Problems: (1) Acute renal failure Status: Acute (2) Anemia Status: Acute (3) Back pain Status: Acute (4) Bilateral knee pain Status: Acute (5) Fall down steps Status: Acute (6) Hypoxia Status: Acute (7) Low back pain Status: Acute (8) Neck pain Status: Acute (9) Right elbow pain Status: Acute Comment Review of Relevant I have reviewed the following items marika (where applicable) has been applied. Medications: Current Medications Medications (Trade) Dose Ordered Sig/Julia Route PRN Reason Start Time Stop Time Status Last Admin Dose Admin Atorvastatin Calcium (Lipitor) 20 mg QHS PO 04/29/21 21:00 04/29/21 19:33 Gabapentin (Neurontin) 300 mg TID PO 04/29/21 14:00 04/30/21 08:11 Carvedilol (Coreg) 25 mg BIDWMEALS PO 04/29/21 17:00 04/30/21 08:11 Justifications for Admission Other Justification Alcohol intoxication, PNA ADELINA GARCIA MD Apr 30, 2021 13:30
[2021-04-30 15:00] VITALS: BP 139/70
[2021-04-30] MEDS: methylPREDNISolone SOD SUCC PF 40 MG/ML VIAL. IV SCH ×2 (15:31→20:12)
[2021-04-30] MEDS: ASCORBIC ACID 1,000 MG TABLET PO SCH ×2 (15:32→20:11)
[2021-04-30 19:00] VITALS: BP 148/76
[2021-04-30] MEDS: IPRATROPIUM/ALBUTEROL 20/100mcg/INH INHALER. INH SCH (20:11)
[2021-04-30] MEDS: ATORVASTATIN CALCIUM 20 MG TABLET PO SCH (20:12)
[2021-04-30 23:47] VITALS: BP 105/81
[2021-05-01] VITALS (21 sets, daily range): BP systolic 129–205; BP diastolic 56–110
[2021-05-01] MEDS ORDERED: ATROPINE 0.5 MG/5 ML DISP.SYRINGE. IV PRN (02:45)
[2021-05-01] MEDS ORDERED: diphenhydrAMINE 50 MG/ML VIAL IVP PRN (02:45)
[2021-05-01] MEDS ORDERED: cloNIDine HCL 0.1 MG TABLET PO PRN (02:45)
[2021-05-01] MEDS ORDERED: IV NORMAL SALINE 500ML BAG 500 ML IV PRN (02:45)
--- NOTE | 2021-05-01 03:40 | NUR ---
Pt transferred to room 102 via bed at 0300. He is A/Ox3 at this time and pleasant. He c/o being cold warm blanket provided. Placed on monitoring equipment, SR, O2 sat 96% on RA. Attempting to restart IV. Bed alarm on.
[2021-05-01] MEDS: IV NORMAL SALINE 1000ML BAG 1,000 ML IV SCH ×2 (04:30→17:50)
[2021-05-01] MEDS: methylPREDNISolone SOD SUCC PF 40 MG/ML VIAL. IV SCH ×3 (05:45→20:42)
[2021-05-01] MEDS: diphenhydrAMINE 50 MG/ML VIAL IVP PRN ×4 (07:30→17:24)
[2021-05-01] MEDS: CARVEDILOL 12.5 MG TABLET. PO SCH ×2 (08:00→16:25)
[2021-05-01] MEDS: IPRATROPIUM/ALBUTEROL 20/100mcg/INH INHALER. INH SCH ×4 (08:00→20:00)
--- NOTE | 2021-05-01 08:39 | PDOC ---
[employer] PROGRESS NOTE Date of Service DOS: DATE: 05/01/21 TIME: 08:33 Chief Complaint Chief Complaint COVID-19 pneumonia Mechanical fall JOSE DE JESUS due to vasomotor nephropathy Lactic acidemia Polysubstance abuse Alcohol withdrawal, encephalopathy - severe withdrawal Peripheral neuropathy also from alcohol versus his diabetes Acute hypercapnic hypoxic respiratory failure requiring BiPAP Hypertensive urgency R Knee pain - has outpatient f/u at [facility] and orthopedic consultation here. had outpatient MRI Acute toxic and metabolic encephalopathy History alcohol abuse, severe Possible SI - resolved DM2 HTN Anxiety/depression GERD We will start on 10-day IV steroid course Continue O2 supplementation ICU for ETOH withdrawal History of Present Illness History of Present Illness 60-year-old male with PMhx ETOH use disorder, HTN, DM2, TONIA, smoker recurrently admitted for alcohol withdrawal comes to the ED after a fall. He has been apparently stable, but he fell. He complains of some headache and neck pain and back pain,bilateral feet pain, knee pain, elbow pain and hip pain. Admitted for further management and found to have COVID-19 infection. Patient is also requiring oxygen at this time and having shortness of breath. 3: No acute events overnight. Patient seen examined bedside. Alert and awake and lethargic appearing. Afebrile and saturating 98% on 4 L nasal cannula. Mild dyspnea upon rest. Florid alcohol withdrawal with agitation noted, transferred to ICU for closer monitoring 05/01: Seen in ICU very agitated with visual hallucinations. Not redirectable. Despite Ativan Haldol Benadryl administration. Ordered as needed Geodon intramuscularly as well as Precedex. cc time 31 min Vitals/I&O Vitals/I&O: Vital Signs Date Time Temp Pulse Resp B/P (MAP) Pulse Ox O2 Delivery O2 Flow Rate FiO2 05/01/21 08:00 Room Air 05/01/21 08:00 98.3 84 20 138/56 (83) 93 2.0 98.3 I & O 04/30/21 04/30/21 05/01/21 15:00 23:00 07:00 Intake Total 600 ml Balance 600 ml Physical Exam General: Alert, Cooperative Heart: Regular rate Lungs: Clear, Other Abdomen: Normal bowel sounds, No tenderness Extremities: No cyanosis Skin: No breakdown Assessment and Plan Assessmemt and Plan Problems Medical Problems: (1) Acute renal failure Status: Acute (2) Anemia Status: Acute (3) Back pain Status: Acute (4) Bilateral knee pain Status: Acute (5) Fall down steps Status: Acute (6) Hypoxia Status: Acute (7) Low back pain Status: Acute (8) Neck pain Status: Acute (9) Right elbow pain Status: Acute Comment Review of Relevant I have reviewed the following items marika (where applicable) has been applied. Medications: Current Medications Medications (Trade) Dose Ordered Sig/Julia Route PRN Reason Start Time Stop Time Status Last Admin Dose Admin Ascorbic Acid (Vitamin C) 3,000 mg TID PO 04/30/21 14:00 04/30/21 20:11 Methylprednisolone Sodium Succinate (SOLU-Medrol 40MG VIAL) 40 mg Q8HRS IV 04/30/21 14:00 05/01/21 05:45 Albuterol/ Ipratropium (Combivent Respimat 20-100 Mcg) 1 puff RTQID INH 04/30/21 20:00 04/30/21 20:11 Lorazepam (Ativan Inj) 4 mg PRN Q1HR PRN IV For CIWA 15 or greater 05/01/21 02:45 05/01/21 07:30 Justifications for Admission Other Justification Alcohol intoxication, PNA TJ ALEJO MD May 01, 2021 08:39
[2021-05-01] MEDS: ASCORBIC ACID 1,000 MG TABLET PO SCH ×3 (09:00→19:18)
[2021-05-01] MEDS: GABAPENTIN 300 MG CAPSULE. PO SCH ×3 (09:00→19:18)
[2021-05-01] MEDS: ALLOPURINOL 100 MG TABLET. PO SCH (09:00)
[2021-05-01] MEDS: HALOPERIDOL 5 MG TABLET. PO SCH ×2 (09:00→19:18)
[2021-05-01] MEDS: DULoxetine HCL 30 MG CAPSULE.DR PO SCH (09:00)
[2021-05-01] MEDS: THIAMINE 100 MG TABLET. PO SCH (09:00)
[2021-05-01] MEDS: AZITHROMYCIN 250 MG TABLET. PO SCH (09:00)
[2021-05-01] MEDS: ZINC SULFATE 220 MG CAPSULE. PO SCH (09:00)
[2021-05-01] MEDS: HALOPERIDOL LACTATE 5 MG/ML VIAL. IVP PRN ×2 (09:21→19:25)
[2021-05-01] MEDS: ZIPRASIDONE IM 20 MG VIAL. IM PRN ×2 (09:22→20:43)
[2021-05-01] MEDS: DEXMEDETOMIDINE 400 MCG in IV NORMAL SALINE 100ML 96 ML IV PRN ×9 (09:25→22:29)
[2021-05-01] MEDS ORDERED: METOPROLOL IV PUSH 5 MG/5 ML VIAL. IVP SCH (13:00)
--- NOTE | 2021-05-01 16:04 | NUR ---
SS following up with discharge planning. SS reviewed pt chart and discussed with pt RN. Pt is currently requiring oxygen at two liters nasal canula. COVID19 positive. Pt on IV Solu-Medrol. PT/OT recommended home with home healthcare. Pt on Precedex. Not ready. SS will continue to follow for discharge planning.
[2021-05-01] MEDS: ATORVASTATIN CALCIUM 20 MG TABLET PO SCH (16:40)
[2021-05-01] MEDS: hydrALAZINE 20 MG/ML VIAL. IVP PRN (17:00)
[2021-05-01] MEDS: ENALAPRILAT 1.25 MG/ML VIAL. IVP PRN (17:52)
[2021-05-01] MEDS ORDERED: cloNIDine TTS-2 1 PATCH PATCH TD ONE (18:15)
[2021-05-01] MEDS: LACTOBACILLUS RHAMNOSUS GG 1 CAPSULE. PO SCH (19:18)
[2021-05-02] VITALS (24 sets, daily range): BP systolic 131–187; BP diastolic 80–114
[2021-05-02] MEDS: DEXMEDETOMIDINE 400 MCG in IV NORMAL SALINE 100ML 96 ML IV PRN ×14 (00:11→23:09)
[2021-05-02] MEDS: HALOPERIDOL LACTATE 5 MG/ML VIAL. IVP PRN ×5 (01:57→23:57)
[2021-05-02] MEDS: methylPREDNISolone SOD SUCC PF 40 MG/ML VIAL. IV SCH ×2 (05:54→15:07)
[2021-05-02] MEDS: diphenhydrAMINE 50 MG/ML VIAL IVP PRN (07:49)
[2021-05-02] MEDS: hydrALAZINE 20 MG/ML VIAL. IVP PRN ×2 (07:50→12:40)
[2021-05-02] MEDS: ENALAPRILAT 1.25 MG/ML VIAL. IVP PRN ×3 (07:51→15:09)
[2021-05-02] MEDS: IPRATROPIUM/ALBUTEROL 20/100mcg/INH INHALER. INH SCH ×4 (08:00→20:00)
[2021-05-02] MEDS: CARVEDILOL 12.5 MG TABLET. PO SCH ×2 (08:00→13:49)
--- NOTE | 2021-05-02 08:00 | NUR ---
Pt too combative and agitated to take po meds. BP meds given IV. Will ask to change po antibiotic to IV.
[2021-05-02] MEDS: HALOPERIDOL 5 MG TABLET. PO SCH (08:05)
[2021-05-02] MEDS: DULoxetine HCL 30 MG CAPSULE.DR PO SCH (08:05)
[2021-05-02] MEDS: LACTOBACILLUS RHAMNOSUS GG 1 CAPSULE. PO SCH ×2 (08:05→20:39)
[2021-05-02] MEDS: AZITHROMYCIN 250 MG TABLET. PO SCH (08:06)
[2021-05-02] MEDS: GABAPENTIN 300 MG CAPSULE. PO SCH ×3 (08:06→20:40)
[2021-05-02] MEDS: THIAMINE 100 MG TABLET. PO SCH (08:06)
[2021-05-02] MEDS: ZINC SULFATE 220 MG CAPSULE. PO SCH (08:06)
[2021-05-02] MEDS: ASCORBIC ACID 1,000 MG TABLET PO SCH ×2 (08:06→13:49)
[2021-05-02] MEDS: ALLOPURINOL 100 MG TABLET. PO SCH (08:07)
[2021-05-02] MEDS: ZIPRASIDONE IM 20 MG VIAL. IM PRN ×2 (10:42→15:28)
[2021-05-02] MEDS ORDERED: chlordiazePOXIDE HCL 25 MG CAPSULE PO PRN (15:30)
[2021-05-02] MEDS ORDERED: cloNIDine HCL 0.1 MG TABLET PO PRN (15:30)
[2021-05-02] MEDS: IV NORMAL SALINE 1000ML BAG 1,000 ML IV SCH (15:40)
[2021-05-02] MEDS: MULTIVIT INFUSN,ADULT 4,VIT K 10 ML, THIAMINE INJ 100 MG, FOLIC ACID INJ 1 MG in IV NOR... IV SCH (16:26)
[2021-05-02] MEDS: LORazepam 40 MG in IV NORMAL SALINE 250ML 250 ML IV PRN ×2 (16:28→23:38)
--- NOTE | 2021-05-02 17:30 | PDOC ---
GENERAL General: Patient examined chart reviewed today's hospital day 5 for this patient admitted after a 9-day stay for community-acquired pneumonia and alcohol withdrawal. He was discharged home on April 27 and then readmitted with confusion and falls the next day. His serum alcohol level was undetectable but his Covid PCR was positive. It is most likely that he had COVID during that first admission but the PCR returned negative. His metabolic encephalopathy may be in part related to that. He was very combative and confused today. We will stop his steroids at this point as he has had 5 days. Respiratory status is stable. He is requiring heavy sedation at this point on full dose Precedex and now and Ativan infusion. The intramuscular Geodon works well. His CT head on admission was unremarkable. Given the periorbital ecchymoses and large forehead hematoma we may need to repeat the CAT scan with concern for subdural hematoma given his falls and alcoholism. We will continue to follow closely clinically here in the intensive care unit. Time spent today is 30 minutes with greater than 50% in counseling a nd coordination of care most of which in discussion with nursing and in extensive review of records regarding care plan and progress. Problems: (1) COVID-19 (2) Chronic alcoholism (3) Hypoxia (4) Falls frequently VITAL SIGNS Vital Signs/I&O: Vital Signs Date Time Temp Pulse Resp B/P (MAP) Pulse Ox O2 Delivery O2 Flow Rate FiO2 05/02/21 16:00 Nasal Cannula 4.0 05/02/21 16:00 97.4 56 26 160/99 99 97.4 I & O 0 05/01/21 05/01/21 05/02/21 15:00 23:00 07:00 Intake Total 840 ml Output Total 975 ml 255 ml Balance -975 ml 585 ml Patient has been quite agitated today requiring heavy sedation on my assessment he is resting comfortably HEENT exam is notable for large right forehead hematoma and bilateral periorbital ecchymoses without swelling Neck is soft and supple no adenopathy or thyromegaly noted Chest is clear to auscultation anteriorly Heart S1-S2 normal regular rate and rhythm no murmurs or gallops are noted Abdomen is obese he has a large nontender reducible mid abdominal hernia that looks like it has had several attempts at repair Extremity exam is notable for bruising throughout large right knee hematoma ALLERGIES Allergies: Allergies Coded Allergies Type Severity Reaction Last Updated Verified No Known Drug Allergies 04/28/21 No MEDS Medications: Current Medications Medications (Trade) Dose Ordered Sig/Julia Route PRN Reason Start Time Stop Time Status Last Admin Dose Admin Ziprasidone (Geodon Im) 20 mg PRN BID PRN IM ANXIETY / AGITATION 05/01/21 18:00 05/02/21 15:28 Clonidine HCl (Catapres Tts-2) 1 patch 1X ONCE TD 05/01/21 18:15 05/01/21 18:16 DC 05/01/21 18:15 Multivitamins 10 ml/Thiamine HCl 100 mg/Folic Acid 1 mg/Sodium Chloride 1,011.2 ml @ 100 mls/ hr DAILY IV 05/02/21 16:00 05/06/21 19:07 05/02/21 16:26 Lorazepam 40 mg/ Sodium Chloride 270 ml @ 13.5 mls/hr CONT PRN IV PER PROTOCOL 05/02/21 16:00 05/02/21 16:28 ASSESSMENT & PLAN A&P Plan as noted above This note was created using [employer] and may have omissions and/or errors due to the 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 Justifications for Admission Other Justification Alcohol intoxication, PNA JESSY SILVA MD May 02, 2021 17:30
[2021-05-02] MEDS: ATORVASTATIN CALCIUM 20 MG TABLET PO SCH (20:40)
[2021-05-03] VITALS (13 sets, daily range): BP systolic 115–193; BP diastolic 76–110
[2021-05-03] MEDS: diphenhydrAMINE 50 MG/ML VIAL IVP PRN ×4 (00:37→21:49)
[2021-05-03] MEDS: DEXMEDETOMIDINE 400 MCG in IV NORMAL SALINE 100ML 96 ML IV PRN ×14 (00:57→23:46)
[2021-05-03] MEDS: hydrALAZINE 20 MG/ML VIAL. IVP PRN ×2 (02:07→06:13)
[2021-05-03] MEDS: ENALAPRILAT 1.25 MG/ML VIAL. IVP PRN (04:02)
[2021-05-03] MEDS: HALOPERIDOL LACTATE 5 MG/ML VIAL. IVP PRN ×2 (04:49→09:18)
[2021-05-03] MEDS: ZIPRASIDONE IM 20 MG VIAL. IM PRN ×4 (05:08→21:21)
[2021-05-03] MEDS: ONDANSETRON PF 4 MG/2 ML VIAL. IVP PRN (06:04)
[2021-05-03] MEDS: LORazepam 40 MG in IV NORMAL SALINE 250ML 250 ML IV PRN ×3 (06:24→20:41)
[2021-05-03] MEDS ORDERED: MIDAZOLAM HCL/PF 5 MG/5 ML VIAL. IVP ONE (06:30)
[2021-05-03 07:22] LABS: BASO % 0 % (0-3); EOS # 0.1 x10^3/uL (0.0-0.7); EOS % 1 % (0-3); HEMATOCRIT 32.8 % (39.0-53.0); HEMOGLOBIN 10.2 g/dL (13.0-17.5); LYMPH % 7 % (24-48); MEAN CORPUSCULAR HEMOGLOBIN 28 pg (25-35); MEAN CORPUSCULAR HGB CONC 31 g/dL (31-37); MEAN CORPUSCULAR VOLUME 89 fL (79-100); MONO # 1.5 x10^3/uL (0.0-1.1); MONO % 10 % (0-9); NEUT # 12.3 x10^3/uL (1.8-7.7); NEUT % 82 % (31-73); PLATELET COUNT 282 x10^3/uL (140-400); RED BLOOD COUNT 3.68 x10^6/uL (4.30-5.70); RED CELL DISTRIBUTION WIDTH 17.4 % (11.5-14.5); WHITE BLOOD COUNT 14.9 x10^3/uL (4.0-11.0)
[2021-05-03 07:30] LABS: ALBUMIN 1.8 g/dL (3.4-5.0); ALBUMIN/GLOBULIN RATIO 0.4 (1.0-1.7); CALCIUM 8.2 mg/dL (8.5-10.1); CREATININE 1.2 mg/dL (0.7-1.3); GFR 62.2; POTASSIUM 4.6 mmol/L (3.5-5.1); TOTAL BILIRUBIN 0.4 mg/dL (0.2-1.0)
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
[2021-05-03] MEDS: CARVEDILOL 12.5 MG TABLET. PO SCH ×2 (08:00→17:00)
[2021-05-03] MEDS ORDERED: ZIPRASIDONE IM 20 MG VIAL. IM ONE (08:00)
[2021-05-03] MEDS: IPRATROPIUM/ALBUTEROL 20/100mcg/INH INHALER. INH SCH ×4 (08:00→20:00)
[2021-05-03] MEDS: ALLOPURINOL 100 MG TABLET. PO SCH (08:44)
[2021-05-03] MEDS: DULoxetine HCL 30 MG CAPSULE.DR PO SCH (08:44)
[2021-05-03] MEDS: GABAPENTIN 300 MG CAPSULE. PO SCH ×3 (08:44→20:46)
[2021-05-03] MEDS: LACTOBACILLUS RHAMNOSUS GG 1 CAPSULE. PO SCH ×2 (08:44→20:45)
[2021-05-03] MEDS: AZITHROMYCIN 250 MG TABLET. PO SCH (08:44)
[2021-05-03] MEDS: MULTIVIT INFUSN,ADULT 4,VIT K 10 ML, THIAMINE INJ 100 MG, FOLIC ACID INJ 1 MG in IV NOR... IV SCH (08:52)
--- NOTE | 2021-05-03 10:18 | RAD ---
EXAMINATION: Chest radiograph. VIEWS: Single AP view of the chest COMPARISON: 04/28/2021 INDICATION:60 years, Male, PICC placement. FINDINGS: Left upper extremity PICC with tip terminating at the atriocaval junction. Stable cardiomediastinal s ilhouette. Scattered hazy perihilar and left basilar airspace disease. No pleural effusion or pneumot horax. No acute osseous process. IMPRESSION: 1. Left upper extremity PICC in stable position. No immediate postprocedural complication. 2. Scattered bilateral airspace disease favoring subsegmental atelectasis less likely developing infi ltrate. Electronically signed by: Darron Booker DO (05/03/2021 10:16 AM) [facility]
--- NOTE | 2021-05-03 16:00 | PDOC ---
GENERAL General: Patient examined chart reviewed discussed with charge and bedside nursing today. He was even more agitated overnight and after studying his medication administration it looked like his central line was not functioning appropriately. Since replacing that PICC line he has been in much better shape still requiring high-dose lorazepam infusion and Precedex high-dose infusion. This afternoon they been able to back down some but he is moving around looking like he is trying to get up. He has a large forehead hematoma along with periorbital ecchymoses, CT head on admission was unremarkable we may need to recheck that depending on his neurologic status. Alcohol level was negative on admission which was 24 hours after discharge but opiates and benzodiazepines were positive. Nurse tells me there was a friend who told the nursing team that he does inject heroin fairly regularly. The COVID-19 was likely present on the last admission just tested negative. That is not helping his cognitive status either. Note that the patient was assessed early this morning for eligibility for restraints and those were applied until mid afternoon and then removed. We will continue current management otherwise. Time spent today is 30 minutes with greater than 50% in counseling and coordination of care most of which in discussion with nursing and extensive review of chart regarding care plan and progress. Problems: (1) Chronic alcoholism (2) COVID-19 (3) Alcohol withdrawal VITAL SIGNS Vital Signs/I&O: Vital Signs Date Time Temp Pulse Resp B/P (MAP) Pulse Ox O2 Delivery O2 Flow Rate FiO2 05/03/21 13:56 47 17 05/03/21 12:00 Room Air 05/03/21 07:00 167/95 90 05/03/21 04:00 3.0 05/03/21 00:00 96.6 96.6 I & O 05/02/21 05/02/21 05/03/21 15:00 23:00 07:00 Intake Total 988 ml 2092 ml Output Total 190 ml 485 ml 275 ml Balance -190 ml 503 ml 1817 ml In general the patient is sedated now off of his restraints this afternoon moving around some appears comfortable in no acute distress HEENT exam is notable for very large hematoma of his forehead that seems to be enlarging. He also has periorbital ecchymoses that are stable. He does not open his eyes for the exam Neck is soft and supple no adenopathy or thyromegaly noted Chest is clear to auscultation Heart S1-S2 normal regular rate and rhythm no murmurs or gallops are noted Abdomen soft nontender nondistended no masses organomegaly noted Extremity exam is notable for ecchymoses throughout. Unable to assess strength given his sedation he is moving all of his limbs liberally trying to shift position in bed ALLERGIES Allergies: Allergies Coded Allergies Type Severity Reaction Last Updated Verified No Known Drug Allergies 04/28/21 No MEDS Medications: Current Medications Medications (Trade) Dose Ordered Sig/Julia Start Time Stop Time Status Last Admin Dose Admin Acetaminophen (Tylenol) 650 mg PRN Q6HRS PRN 04/29/21 04:00 Acetaminophen/ Hydrocodone Bitart (Lortab 10/325) 1 tab PRN Q6HRS PRN 04/29/21 11:15 05/02/21 15:34 DC 04/30/21 20:12 Albuterol Sulfate (Ventolin Neb Soln) 2.5 mg PRN Q6HRS PRN 04/29/21 17:22 Albuterol/ Ipratropium (Combivent Respimat 20-100 Mcg) 1 puff RTQID 04/30/21 20:00 04/30/21 20:11 Albuterol/ Ipratropium (Duoneb) 3 ml RTQID 04/29/21 12:00 04/30/21 16:31 DC Allopurinol (Zyloprim) 100 mg DAILY 04/29/21 12:30 04/30/21 08:11 Ascorbic Acid (Vitamin C) 3,000 mg TID 04/30/21 14:00 05/02/21 15:34 DC 04/30/21 20:11 Atorvastatin Calcium (Lipitor) 20 mg QHS 04/29/21 21:00 04/30/21 20:12 Atropine Sulfate (ATROPINE 0.5mg SYRINGE) 0.5 mg PRN Q5MIN PRN 05/01/21 02:45 Azithromycin (Zithromax) 250 mg DAILY 04/29/21 12:30 05/07/21 12:29 04/30/21 08:11 Carvedilol (Coreg) 25 mg BIDWMEALS 04/29/21 17:00 04/30/21 17:42 Cephalexin HCl (Keflex) 750 mg BID 04/29/21 21:00 UNV Chlordiazepoxide (Librium) 100 mg PRN Q1HR PRN 05/02/21 15:30 Clonidine HCl (Catapres Tts-2) 1 patch 1X ONCE 05/01/21 18:15 05/01/21 18:16 DC 05/01/21 18:15 Clonidine HCl (Catapres) 0.1 mg PRN Q1HR PRN 05/02/21 15:30 Colchicine (Colcrys) 0.6 mg PRN DAILY PRN 04/29/21 11:15 Dexmedetomidine HCl 400 mcg/ Sodium Chloride 100 ml @ 6.985 mls/ hr CONT PRN 05/01/21 02:45 05/03/21 14:00 Diphenhydramine HCl (Benadryl) 25 mg PRN Q15MIN PRN 05/02/21 15:30 Duloxetine HCl (Cymbalta) 60 mg DAILY 04/29/21 12:30 04/30/21 08:11 Enalaprilat (Vasotec Inj) 1.25 mg PRN Q6HRS PRN 05/01/21 14:00 05/03/21 04:02 Furosemide (Lasix) 40 mg DAILY 04/30/21 09:00 04/29/21 11:25 DC Gabapentin (Neurontin) 300 mg TID 04/29/21 14:00 04/30/21 20:12 Haloperidol (Haldol) 5 mg BID 04/29/21 12:30 05/02/21 15:34 DC 04/30/21 20:12 Haloperidol Lactate (Haldol Inj) 5 mg PRN Q4HRS PRN 05/02/21 15:30 05/03/21 09:18 Hydralazine HCl (Apresoline Inj) 10 mg PRN Q4HRS PRN 05/01/21 14:00 05/03/21 06:13 Hydrochlorothiazide (Microzide) 12.5 mg DAILY 04/30/21 09:00 04/29/21 11:25 DC Lactobacillus Rhamnosus (Culturelle) 1 cap BID 05/01/21 21:00 Lisinopril (Prinivil) 40 mg DAILY 04/30/21 09:00 04/29/21 11:25 DC Lorazepam (Ativan Inj) 4 mg PRN Q15MIN PRN 05/01/21 02:45 05/02/21 15:34 DC Lorazepam 40 mg/ Sodium Chloride 270 ml @ 13.5 mls/hr CONT PRN 05/02/21 16:00 05/03/21 14:02 Methylprednisolone Sodium Succinate (SOLU-Medrol 40MG VIAL) 40 mg Q8HRS 04/30/21 14:00 05/02/21 15:29 DC 05/02/21 15:07 Metoprolol Tartrate (Lopressor Vial) 5 mg Q6HRS 05/01/21 13:00 05/01/21 13:54 DC Midazolam HCl (Versed) 5 mg 1X ONCE 05/03/21 06:30 05/03/21 06:31 DC 05/03/21 06:32 Multivitamins 10 ml/Thiamine HCl 100 mg/Folic Acid 1 mg/Sodium Chloride 1,011.2 ml @ 100 mls/ hr DAILY 05/02/21 16:00 05/06/21 19:07 05/03/21 08:52 Non-Formulary Medication (Metformin Hcl ) 1,000 mg BID WMEALS 04/29/21 18:00 04/29/21 11:25 DC Non-Formulary Medication (Tiotropium [place] (Spiriva)) 1 cap DAILY 04/30/21 09:00 UNV Ondansetron HCl (Zofran) 4 mg PRN Q4HRS PRN 04/29/21 04:00 05/03/21 06:04 Polyethylene Glycol (miraLAX PACKET) 17 gm PRN DAILY PRN 04/29/21 11:45 04/30/21 20:17 Sodium Chloride 500 ml @ 500 mls/hr 1X PRN PRN 05/01/21 02:45 05/02/21 15:53 DC Thiamine Mononitrate (Vitamin B-1) 300 mg DAILY 05/01/21 09:00 05/02/21 15:34 DC Thiamine HCl 100 mg/Dextrose 51 ml @ 100 mls/hr DAILY 05/07/21 09:00 05/11/21 09:31 Zinc Sulfate (Orazinc) 220 mg DAILY 05/01/21 09:00 05/02/21 15:34 DC Ziprasidone (Geodon Im) 20 mg PRN Q4HRS PRN 05/03/21 06:30 Current Medications Medications (Trade) Dose Ordered Sig/Julia Route PRN Reason Start Time Stop Time Status Last Admin Dose Admin Multivitamins 10 ml/Thiamine HCl 100 mg/Folic Acid 1 mg/Sodium Chloride 1,011.2 ml @ 100 mls/ hr DAILY IV 05/02/21 16:00 05/06/21 19:07 05/03/21 08:52 Lorazepam 40 mg/ Sodium Chloride 270 ml @ 13.5 mls/hr CONT PRN IV PER PROTOCOL 05/02/21 16:00 05/03/21 14:02 Midazolam HCl (Versed) 5 mg 1X ONCE IVP 05/03/21 06:30 05/03/21 06:31 DC 05/03/21 06:32 LAB Lab: Laboratory Tests Test 05/03/21 06:35 White Blood Count 14.9 x10^3/uL (4.0-11.0) H Red Blood Count 3.68 x10^6/uL (4.30-5.70) L Hemoglobin 10.2 g/dL (13.0-17.5) L Hematocrit 32.8 % (39.0-53.0) L Mean Corpuscular Volume 89 fL (79-100) # Mean Corpuscular Hemoglobin 28 pg (25-35) Mean Corpuscular Hemoglobin Concent 31 g/dL (31-37) Red Cell Distribution Width 17.4 % (11.5-14.5) H Platelet Count 282 x10^3/uL (140-400) Neutrophils (%) (Auto) 82 % (31-73) H Lymphocytes (%) (Auto) 7 % (24-48) L Monocytes (%) (Auto) 10 % (0-9) H Eosinophils (%) (Auto) 1 % (0-3) Basophils (%) (Auto) 0 % (0-3) Neutrophils # (Auto) 12.3 x10^3/uL (1.8-7.7) H Lymphocytes # (Auto) 1.0 x10^3/uL (1.0-4.8) Monocytes # (Auto) 1.5 x10^3/uL (0.0-1.1) H Eosinophils # (Auto) 0.1 x10^3/uL (0.0-0.7) Basophils # (Auto) 0.0 x10^3/uL (0.0-0.2) Sodium Level 139 mmol/L (136-145) Potassium Level 4.6 mmol/L (3.5-5.1) Chloride Level 104 mmol/L (98-107) Carbon Dioxide Level 25 mmol/L (21-32) Anion Gap 10 (6-14) Blood Urea Nitrogen 85 mg/dL (8-26) H Creatinine 1.2 mg/dL (0.7-1.3) Estimated GFR (Cockcroft-Gault) 62.2 BUN/Creatinine Ratio 71 (6-20) H Glucose Level 140 mg/dL (70-99) H Calcium Level 8.2 mg/dL (8.5-10.1) L Total Bilirubin 0.4 mg/dL (0.2-1.0) Aspartate Amino Transferase (AST) 14 U/L (15-37) L Alanine Aminotransferase (ALT) 36 U/L (16-63) Alkaline Phosphatase 48 U/L (46-116) Total Protein 6.0 g/dL (6.4-8.2) L Albumin 1.8 g/dL (3.4-5.0) L Albumin/Globulin Ratio 0.4 (1.0-1.7) L Laboratory Tests 05/03/21 06:35 Laboratory Tests 05/03/21 06:35 ASSESSMENT & PLAN A&P Plan as noted above This note was created using [employer] and may have omissions and/or errors due to the nature of 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 Justifications for Admission Other Justification Alcohol intoxication, PNA JESSY SILVA MD May 03, 2021 16:00
[2021-05-03] MEDS: IV DEXTROSE 5 %-0.45 % NACL 1,000 ML IV SCH (16:40)
--- NOTE | 2021-05-03 19:47 | NUR ---
End of shift note: At the beginning of the shift, pt was restless and combative for the duration of the PICC line placement. Once PICC line placed, pt calmed down for a couple hours, then woke up thrashing. This was the theme of the day. Pt needed restraints the entire day, when we did a trial without restraints he started thrashing around again and trying to get out bed. Pt is strong, sometimes requiring multiple people to hold him down, he was trying to punch us and spit on us. All other efforts to calm pt down were ineffective. Pt still requires restraints, he is a danger to staff and self.
[2021-05-03] MEDS: ATORVASTATIN CALCIUM 20 MG TABLET PO SCH (20:46)
[2021-05-04] VITALS (24 sets, daily range): BP systolic 111–178; BP diastolic 51–98
[2021-05-04] MEDS: DEXMEDETOMIDINE 400 MCG in IV NORMAL SALINE 100ML 96 ML IV PRN ×13 (01:24→22:44)
[2021-05-04] MEDS: IV DEXTROSE 5 %-0.45 % NACL 1,000 ML IV SCH ×3 (02:39→21:43)
[2021-05-04] MEDS: LORazepam 40 MG in IV NORMAL SALINE 250ML 250 ML IV PRN ×3 (03:23→18:28)
[2021-05-04] MEDS: diphenhydrAMINE 50 MG/ML VIAL IVP PRN (03:49)
[2021-05-04] MEDS: ONDANSETRON PF 4 MG/2 ML VIAL. IVP PRN (03:49)
[2021-05-04 05:37] LABS: BASO # 0.1 x10^3/uL (0.0-0.2); BASO % 1 % (0-3); EOS # 0.1 x10^3/uL (0.0-0.7); EOS % 1 % (0-3); HEMATOCRIT 31.6 % (39.0-53.0); LYMPH # 1.3 x10^3/uL (1.0-4.8); LYMPH % 11 % (24-48); MEAN CORPUSCULAR HEMOGLOBIN 32 pg (25-35); MEAN CORPUSCULAR HGB CONC 32 g/dL (31-37); MONO # 0.5 x10^3/uL (0.0-1.1); MONO % 4 % (0-9); NEUT # 9.9 x10^3/uL (1.8-7.7); NEUT % 83 % (31-73); PLATELET COUNT 383 x10^3/uL (140-400); RED BLOOD COUNT 3.12 x10^6/uL (4.30-5.70); RED CELL DISTRIBUTION WIDTH 13.8 % (11.5-14.5)
[2021-05-04 05:40] LABS: MEAN CORPUSCULAR VOLUME 99 fL (79-100)
[2021-05-04 06:06] LABS: ALBUMIN 2.8 g/dL (3.4-5.0); ALBUMIN/GLOBULIN RATIO 0.8 (1.0-1.7); CALCIUM 7.6 mg/dL (8.5-10.1); CREATININE 0.7 mg/dL (0.7-1.3); GFR 115.8; POTASSIUM 3.9 mmol/L (3.5-5.1); TOTAL BILIRUBIN 0.4 mg/dL (0.2-1.0); TOTAL PROTEIN 6.2 g/dL (6.4-8.2)
[2021-05-04] MEDS: CARVEDILOL 12.5 MG TABLET. PO SCH ×2 (07:36→16:48)
[2021-05-04] MEDS: AZITHROMYCIN 250 MG TABLET. PO SCH (07:37)
[2021-05-04] MEDS: LACTOBACILLUS RHAMNOSUS GG 1 CAPSULE. PO SCH ×2 (07:37→20:39)
[2021-05-04] MEDS: DULoxetine HCL 30 MG CAPSULE.DR PO SCH (07:37)
[2021-05-04] MEDS: GABAPENTIN 300 MG CAPSULE. PO SCH ×3 (07:37→20:39)
[2021-05-04] MEDS: ALLOPURINOL 100 MG TABLET. PO SCH (07:40)
[2021-05-04] MEDS: IPRATROPIUM/ALBUTEROL 20/100mcg/INH INHALER. INH SCH ×4 (07:45→20:00)
[2021-05-04] MEDS ORDERED: MIDAZOLAM HCL/PF 5 MG/5 ML VIAL. IVP PRN (08:00)
[2021-05-04] MEDS ORDERED: IV NORMAL SALINE 500ML BAG 500 ML IV PRN (08:00)
[2021-05-04] MEDS ORDERED: PROPOFOL 100 ML IV PRN (08:00)
[2021-05-04] MEDS ORDERED: VECURONIUM BOLUS 10 MG VIAL. IV PRN (08:00)
[2021-05-04] MEDS ORDERED: ATROPINE 0.5 MG/5 ML DISP.SYRINGE. IV PRN (08:00)
[2021-05-04] MEDS: MULTIVIT INFUSN,ADULT 4,VIT K 10 ML, THIAMINE INJ 100 MG, FOLIC ACID INJ 1 MG in IV NOR... IV SCH (09:00)
--- NOTE | 2021-05-04 15:26 | NUR ---
SS following up with discharge planning. SS reviewed pt chart and discussed with pt RN. Pt is currently requiring oxygen at eight to ten liters nasal canula. Pt combative and agitated. Pt on Precedex and Ativan. 1:1. Four point restraints. Mitts in place. Not stable. SS will continue to follow for discharge planning.
--- NOTE | 2021-05-04 18:05 | PDOC ---
[employer] PROGRESS NOTE Date of Service DOS: DATE: 05/04/21 TIME: 18:03 Chief Complaint Chief Complaint COVID-19 pneumonia Mechanical fall JOSE DE JESUS due to vasomotor nephropathy Lactic acidemia Polysubstance abuse Alcohol withdrawal, encephalopathy - severe withdrawal Peripheral neuropathy also from alcohol versus his diabetes Acute hypercapnic hypoxic respiratory failure requiring BiPAP Hypertensive urgency R Knee pain - has outpatient f/u at [facility] and orthopedic consultation here. had outpatient MRI Acute toxic and metabolic encephalopathy History alcohol abuse, severe Possible SI - resolved DM2 HTN Anxiety/depression GERD We will start on 10-day IV steroid course Continue O2 supplementation ICU for ETOH withdrawal History of Present Illness History of Present Illness 60-year-old male with PMhx ETOH use disorder, HTN, DM2, TONIA, smoker recurrently admitted for alcohol withdrawal comes to the ED after a fall. He has been apparently stable, but he fell. He complains of some headache and neck pain and back pain,bilateral feet pain, knee pain, elbow pain and hip pain. Admitted for further management and found to have COVID-19 infection. Patient is also requiring oxygen at this time and having shortness of breath. 33: No acute events overnight. Patient seen examined bedside. Alert and awake and lethargic appearing. Afebrile and saturating 98% on 4 L nasal cannula. Mild dyspnea upon rest. [place] alcohol withdrawal with agitation noted, transferred to ICU for closer monitoring 34: Seen in ICU very agitated with visual hallucinations. Not redirectable. Despite Ativan Haldol Benadryl administration. Ordered as needed Geodon intramuscularly as well as Precedex. cc time 31 min 05/04 Patient evaluated examined at bedside. In restraints remains very agitated when woken up. Continue COVID-19 treatment. Remains critically ill. Discussed with bedside RN. 33 minutes critical care time. Vitals/I&O Vitals/I&O: Vital Signs Date Time Temp Pulse Resp B/P (MAP) Pulse Ox O2 Delivery O2 Flow Rate FiO2 05/04/21 17:00 57 21 116/65 99 Nasal Cannula 8.0 05/04/21 16:00 98.4 98.4 I & O 0 05/03/21 05/03/21 05/04/21 15:00 23:00 07:00 Intake Total 4784 ml Output Total 375 ml 175 ml 875 ml Balance -375 ml -175 ml 3909 ml Physical Exam General: Alert, Cooperative Heart: Regular rate Lungs: Clear, Other Abdomen: Normal bowel sounds, No tenderness Extremities: No cyanosis Skin: No breakdown Labs Labs: Laboratory Tests Test 05/04/21 05:20 White Blood Count 12.0 x10^3/uL (4.0-11.0) Red Blood Count 3.12 x10^6/uL (4.30-5.70) Hemoglobin 10.0 g/dL (13.0-17.5) Hematocrit 31.6 % (39.0-53.0) Mean Corpuscular Volume 99 fL (79-100) Mean Corpuscular Hemoglobin 32 pg (25-35) Mean Corpuscular Hemoglobin Concent 32 g/dL (31-37) Red Cell Distribution Width 13.8 % (11.5-14.5) Platelet Count 383 x10^3/uL (140-400) Neutrophils (%) (Auto) 83 % (31-73) Lymphocytes (%) (Auto) 11 % (24-48) Monocytes (%) (Auto) 4 % (0-9) Eosinophils (%) (Auto) 1 % (0-3) Basophils (%) (Auto) 1 % (0-3) Neutrophils # (Auto) 9.9 x10^3/uL (1.8-7.7) Lymphocytes # (Auto) 1.3 x10^3/uL (1.0-4.8) Monocytes # (Auto) 0.5 x10^3/uL (0.0-1.1) Eosinophils # (Auto) 0.1 x10^3/uL (0.0-0.7) Basophils # (Auto) 0.1 x10^3/uL (0.0-0.2) Sodium Level 146 mmol/L (136-145) Potassium Level 3.9 mmol/L (3.5-5.1) Chloride Level 111 mmol/L (98-107) Carbon Dioxide Level 27 mmol/L (21-32) Anion Gap 8 (6-14) Blood Urea Nitrogen 16 mg/dL (8-26) Creatinine 0.7 mg/dL (0.7-1.3) Estimated GFR (Cockcroft-Gault) 115.8 BUN/Creatinine Ratio 23 (6-20) Glucose Level 131 mg/dL (70-99) Calcium Level 7.6 mg/dL (8.5-10.1) Total Bilirubin 0.4 mg/dL (0.2-1.0) Aspartate Amino Transf (AST/SGOT) 5 U/L (15-37) Alanine Aminotransferase (ALT/SGPT) 18 U/L (16-63) Alkaline Phosphatase 65 U/L (46-116) Total Protein 6.2 g/dL (6.4-8.2) Albumin 2.8 g/dL (3.4-5.0) Albumin/Globulin Ratio 0.8 (1.0-1.7) Thyroid Stimulating Hormone (TSH) 0.482 uIU/mL (0.358-3.74) Treponema pallidum Antibody Nonreactive (Nonreactive) Assessment and Plan Assessmemt and Plan Problems Medical Problems: (1) Acute renal failure Status: Acute (2) Anemia Status: Acute (3) Back pain Status: Acute (4) Bilateral knee pain Status: Acute (5) Fall down steps Status: Acute (6) Hypoxia Status: Acute (7) Low back pain Status: Acute (8) Neck pain Status: Acute (9) Right elbow pain Status: Acute Comment Review of Relevant I have reviewed the following items marika (where applicable) has been applied. Justifications for Admission Other Justification Alcohol intoxication, PNA TJ CARRENO MD May 04, 2021 18:05
[2021-05-04] MEDS: ATORVASTATIN CALCIUM 20 MG TABLET PO SCH (20:39)
[2021-05-04] MEDS: HEPARIN for SUB-Q USE 5,000 UNIT/ML VIAL. SQ SCH (21:42)
[2021-05-05] VITALS (24 sets, daily range): BP systolic 141–177; BP diastolic 58–92
[2021-05-05] MEDS: LORazepam 40 MG in IV NORMAL SALINE 250ML 250 ML IV PRN ×4 (00:12→21:36)
[2021-05-05] MEDS: DEXMEDETOMIDINE 400 MCG in IV NORMAL SALINE 100ML 96 ML IV PRN ×13 (00:12→21:36)
[2021-05-05] MEDS: diphenhydrAMINE 50 MG/ML VIAL IVP PRN ×4 (03:33→20:03)
[2021-05-05] MEDS: HEPARIN for SUB-Q USE 5,000 UNIT/ML VIAL. SQ SCH ×3 (05:52→21:37)
[2021-05-05] MEDS: CARVEDILOL 12.5 MG TABLET. PO SCH ×2 (07:44→17:00)
[2021-05-05] MEDS: DULoxetine HCL 30 MG CAPSULE.DR PO SCH (07:45)
[2021-05-05] MEDS: GABAPENTIN 300 MG CAPSULE. PO SCH ×3 (07:45→19:46)
[2021-05-05] MEDS: LACTOBACILLUS RHAMNOSUS GG 1 CAPSULE. PO SCH ×2 (07:45→19:45)
[2021-05-05] MEDS: ALLOPURINOL 100 MG TABLET. PO SCH (07:45)
[2021-05-05] MEDS: IPRATROPIUM/ALBUTEROL 20/100mcg/INH INHALER. INH SCH ×4 (08:00→20:00)
[2021-05-05] MEDS: MULTIVIT INFUSN,ADULT 4,VIT K 10 ML, THIAMINE INJ 100 MG, FOLIC ACID INJ 1 MG in IV NOR... IV SCH (08:55)
[2021-05-05] MEDS: IV DEXTROSE 5 %-0.45 % NACL 1,000 ML IV SCH ×2 (09:44→18:32)
--- NOTE | 2021-05-05 10:07 | PDOC ---
[employer] PROGRESS NOTE Date of Service DOS: DATE: 05/05/21 TIME: 10:05 Chief Complaint Chief Complaint COVID-19 pneumonia Mechanical fall JOSE DE JESUS due to vasomotor nephropathy Lactic acidemia Polysubstance abuse Alcohol withdrawal, encephalopathy - severe withdrawal Peripheral neuropathy also from alcohol versus his diabetes Acute hypercapnic hypoxic respiratory failure requiring BiPAP Hypertensive urgency R Knee pain - has outpatient f/u at [facility] and orthopedic consultation here. had outpatient MRI Acute toxic and metabolic encephalopathy History alcohol abuse, severe Possible SI - resolved DM2 HTN Anxiety/depression GERD We will start on 10-day IV steroid course Continue O2 supplementation ICU for ETOH withdrawal History of Present Illness History of Present Illness 60-year-old male with PMhx ETOH use disorder, HTN, DM2, TONIA, smoker recurrently admitted for alcohol withdrawal comes to the ED after a fall. He has been apparently stable, but he fell. He complains of some headache and neck pain and back pain,bilateral feet pain, knee pain, elbow pain and hip pain. Admitted for further management and found to have COVID-19 infection. Patient is also requiring oxygen at this time and having shortness of breath. 3: No acute events overnight. Patient seen examined bedside. Alert and awake and lethargic appearing. Afebrile and saturating 98% on 4 L nasal cannula. Mild dyspnea upon rest. [place] alcohol withdrawal with agitation noted, transferred to ICU for closer monitoring 05/01: Seen in ICU very agitated with visual hallucinations. Not redirectable. Despite Ativan Haldol Benadryl administration. Ordered as needed Geodon intramuscularly as well as Precedex. cc time 31 min 05/04 Patient evaluated examined at bedside. In restraints remains very agitated when woken up. Continue COVID-19 treatment. Remains critically ill. Discussed with bedside RN. 33 minutes critical care time. 05/05 Patient evaluated examined at bedside. Able remove four-point restraints but still requiring Precedex and Ativan. Could possibly try to wean sedation coming days and see how patient does. He does remain critically ill. 38 minutes critical care time Vitals/I&O Vitals/I&O: Vital Signs Date Time Temp Pulse Resp B/P (MAP) Pulse Ox O2 Delivery O2 Flow Rate FiO2 05/05/21 09:00 98.0 52 20 166/78 98 Nasal Cannula 3.0 98.0 I & O 3/09/1805/04/21 05/05/21 15:00 23:00 07:00 Intake Total 3234 ml Output Total 1730 ml 505 ml Balance 1504 ml -505 ml Physical Exam Physical Exam: Intubated sedated General: No acute distress Heart: Regular rate Lungs: Clear, Other Abdomen: Normal bowel sounds, No tenderness Extremities: No cyanosis Skin: No breakdown Assessment and Plan Assessmemt and Plan Problems Medical Problems: (1) Acute renal failure Status: Acute (2) Anemia Status: Acute (3) Back pain Status: Acute (4) Bilateral knee pain Status: Acute (5) Fall down steps Status: Acute (6) Hypoxia Status: Acute (7) Low back pain Status: Acute (8) Neck pain Status: Acute (9) Right elbow pain Status: Acute Comment Review of Relevant I have reviewed the following items marika (where applicable) has been applied. Medications: Current Medications Medications (Trade) Dose Ordered Sig/Julia Route PRN Reason Start Time Stop Time Status Last Admin Dose Admin Heparin Sodium (Porcine) (Heparin Sodium) 5,000 unit Q8HRS SQ 05/04/21 22:00 05/05/21 05:52 Justifications for Admission Other Justification Alcohol intoxication, PNA TJ CARRENO MD May 05, 2021 10:07
[2021-05-05] MEDS: ZIPRASIDONE IM 20 MG VIAL. IM PRN ×2 (11:50→20:03)
--- NOTE | 2021-05-05 14:55 | NUR ---
SS following up with discharge planning. SS reviewed pt chart and discussed with pt RN. Pt is currently requiring oxygen at four to six liters nasal canula. COVID19 positive. Pt remains confused. Mitts in place. Pt on Ativan and Precedex. Not stable. SS will continue to follow for discharge planning.
[2021-05-05] MEDS: ATORVASTATIN CALCIUM 20 MG TABLET PO SCH (19:45)
[2021-05-06] VITALS (24 sets, daily range): BP systolic 146–199; BP diastolic 76–114
[2021-05-06] MEDS: DEXMEDETOMIDINE 400 MCG in IV NORMAL SALINE 100ML 96 ML IV PRN ×11 (00:30→21:41)
[2021-05-06] MEDS: diphenhydrAMINE 50 MG/ML VIAL IVP PRN ×3 (00:39→22:32)
[2021-05-06] MEDS: ENALAPRILAT 1.25 MG/ML VIAL. IVP PRN (03:40)
[2021-05-06] MEDS: IV DEXTROSE 5 %-0.45 % NACL 1,000 ML IV SCH ×2 (04:00→14:00)
[2021-05-06] MEDS: hydrALAZINE 20 MG/ML VIAL. IVP PRN ×2 (04:41→18:11)
[2021-05-06] MEDS: LORazepam 40 MG in IV NORMAL SALINE 250ML 250 ML IV PRN ×2 (05:19→12:58)
[2021-05-06] MEDS: HEPARIN for SUB-Q USE 5,000 UNIT/ML VIAL. SQ SCH ×3 (05:41→21:27)
[2021-05-06] MEDS: ZIPRASIDONE IM 20 MG VIAL. IM PRN ×2 (06:07→20:24)
[2021-05-06 06:46] LABS: BASO % 0 % (0-3); EOS # 0.2 x10^3/uL (0.0-0.7); EOS % 2 % (0-3); HEMATOCRIT 30.3 % (39.0-53.0); LYMPH # 1.5 x10^3/uL (1.0-4.8); LYMPH % 17 % (24-48); MEAN CORPUSCULAR HEMOGLOBIN 32 pg (25-35); MEAN CORPUSCULAR HGB CONC 33 g/dL (31-37); MEAN CORPUSCULAR VOLUME 97 fL (79-100); MONO # 0.3 x10^3/uL (0.0-1.1); MONO % 4 % (0-9); NEUT # 6.9 x10^3/uL (1.8-7.7); NEUT % 77 % (31-73); PLATELET COUNT 319 x10^3/uL (140-400); RED BLOOD COUNT 3.14 x10^6/uL (4.30-5.70); RED CELL DISTRIBUTION WIDTH 13.3 % (11.5-14.5)
[2021-05-06 06:58] LABS: CALCIUM 8.3 mg/dL (8.5-10.1); CREATININE 0.6 mg/dL (0.7-1.3); GFR 138.4; POTASSIUM 3.3 mmol/L (3.5-5.1)
[2021-05-06] MEDS: CARVEDILOL 12.5 MG TABLET. PO SCH ×2 (08:00→10:28)
[2021-05-06] MEDS: IPRATROPIUM/ALBUTEROL 20/100mcg/INH INHALER. INH SCH ×4 (08:00→17:12)
[2021-05-06] MEDS: GABAPENTIN 300 MG CAPSULE. PO SCH ×3 (08:31→17:12)
[2021-05-06] MEDS: LACTOBACILLUS RHAMNOSUS GG 1 CAPSULE. PO SCH ×2 (08:31→17:12)
[2021-05-06] MEDS: DULoxetine HCL 30 MG CAPSULE.DR PO SCH (08:31)
[2021-05-06] MEDS: ALLOPURINOL 100 MG TABLET. PO SCH (08:31)
[2021-05-06] MEDS: MULTIVIT INFUSN,ADULT 4,VIT K 10 ML, THIAMINE INJ 100 MG, FOLIC ACID INJ 1 MG in IV NOR... IV SCH (09:27)
[2021-05-06] MEDS: POTASSIUM CHLORIDE 20MEQ 100 ML IV SCH ×2 (10:28→11:45)
--- NOTE | 2021-05-06 11:19 | PDOC ---
[employer] PROGRESS NOTE Date of Service DOS: DATE: 05/06/21 TIME: 11:17 Chief Complaint Chief Complaint COVID-19 pneumonia Mechanical fall JOSE DE JESUS due to vasomotor nephropathy Lactic acidemia Polysubstance abuse Alcohol withdrawal, encephalopathy - severe withdrawal Peripheral neuropathy also from alcohol versus his diabetes Acute hypercapnic hypoxic respiratory failure requiring BiPAP Hypertensive urgency R Knee pain - has outpatient f/u at [facility] and orthopedic consultation here. had outpatient MRI Acute toxic and metabolic encephalopathy History alcohol abuse, severe Possible SI - resolved DM2 HTN Anxiety/depression GERD We will start on 10-day IV steroid course Continue O2 supplementation ICU for ETOH withdrawal History of Present Illness History of Present Illness 60-year-old male with PMhx ETOH use disorder, HTN, DM2, TONIA, smoker recurrently admitted for alcohol withdrawal comes to the ED after a fall. He has been apparently stable, but he fell. He complains of some headache and neck pain and back pain,bilateral feet pain, knee pain, elbow pain and hip pain. Admitted for further management and found to have COVID-19 infection. Patient is also requiring oxygen at this time and having shortness of breath. 3: No acute events overnight. Patient seen examined bedside. Alert and awake and lethargic appearing. Afebrile and saturating 98% on 4 L nasal cannula. Mild dyspnea upon rest. Florid alcohol withdrawal with agitation noted, transferred to ICU for closer monitoring 3: Seen in ICU very agitated with visual hallucinations. Not redirectable. Despite Ativan Haldol Benadryl administration. Ordered as needed Geodon intramuscularly as well as Precedex. cc time 31 min 05/04 Patient evaluated examined at bedside. In restraints remains very agitated when woken up. Continue COVID-19 treatment. Remains critically ill. Discussed with bedside RN. 33 minutes critical care time. 05/05 Patient evaluated examined at bedside. Able remove four-point restraints but still requiring Precedex and Ativan. Could possibly try to wean sedation coming days and see how patient does. He does remain critically ill. 38 minutes critical care time 05/06 Patient evaluated examined at bedside. He was thrashing around in the bed despite Precedex and Ativan drips on. Remains critically ill. Attempts at weaning sedation unsuccessful. Similar situation on his last admission. Continue current otherwise. 41 minutes critical care time Vitals/I&O Vitals/I&O: Vital Signs Date Time Temp Pulse Resp B/P (MAP) Pulse Ox O2 Delivery O2 Flow Rate FiO2 05/06/21 11:00 59 28 146/84 97 Nasal Cannula 5.0 05/06/21 08:00 97.6 97.6 I & O 05/05/21 05/05/21 05/06/21 15:00 23:00 07:00 Intake Total 2210 ml Output Total 750 ml 2400 ml 2440 ml Balance -750 ml -190 ml -2440 ml Physical Exam General: No acute distress Heart: Regular rate Lungs: Clear, Other Abdomen: Normal bowel sounds, No tenderness Extremities: No cyanosis Skin: No breakdown Labs Labs: Laboratory Tests Test 05/06/21 06:00 White Blood Count 9.0 x10^3/uL (4.0-11.0) Red Blood Count 3.14 x10^6/uL (4.30-5.70) Hemoglobin 10.0 g/dL (13.0-17.5) Hematocrit 30.3 % (39.0-53.0) Mean Corpuscular Volume 97 fL (79-100) Mean Corpuscular Hemoglobin 32 pg (25-35) Mean Corpuscular Hemoglobin Concent 33 g/dL (31-37) Red Cell Distribution Width 13.3 % (11.5-14.5) Platelet Count 319 x10^3/uL (140-400) Neutrophils (%) (Auto) 77 % (31-73) Lymphocytes (%) (Auto) 17 % (24-48) Monocytes (%) (Auto) 4 % (0-9) Eosinophils (%) (Auto) 2 % (0-3) Basophils (%) (Auto) 0 % (0-3) Neutrophils # (Auto) 6.9 x10^3/uL (1.8-7.7) Lymphocytes # (Auto) 1.5 x10^3/uL (1.0-4.8) Monocytes # (Auto) 0.3 x10^3/uL (0.0-1.1) Eosinophils # (Auto) 0.2 x10^3/uL (0.0-0.7) Basophils # (Auto) 0.0 x10^3/uL (0.0-0.2) Sodium Level 144 mmol/L (136-145) Potassium Level 3.3 mmol/L (3.5-5.1) Chloride Level 108 mmol/L (98-107) Carbon Dioxide Level 29 mmol/L (21-32) Anion Gap 7 (6-14) Blood Urea Nitrogen 6 mg/dL (8-26) Creatinine 0.6 mg/dL (0.7-1.3) Estimated GFR (Cockcroft-Gault) 138.4 Glucose Level 127 mg/dL (70-99) Calcium Level 8.3 mg/dL (8.5-10.1) Assessment and Plan Assessmemt and Plan Problems Medical Problems: (1) Acute renal failure Status: Acute (2) Anemia Status: Acute (3) Back pain Status: Acute (4) Bilateral knee pain Status: Acute (5) Fall down steps Status: Acute (6) Hypoxia Status: Acute (7) Low back pain Status: Acute (8) Neck pain Status: Acute (9) Right elbow pain Status: Acute Comment Review of Relevant I have reviewed the following items marika (where applicable) has been applied. Medications: Current Medications Medications (Trade) Dose Ordered Sig/Julia Route PRN Reason Start Time Stop Time Status Last Admin Dose Admin Potassium Chloride/Water 100 ml @ 100 mls/hr Q1H IV 05/06/21 11:00 05/06/21 12:59 05/06/21 10:28 Justifications for Admission Other Justification Alcohol intoxication, PNA TJ CARRENO MD May 06, 2021 11:19
[2021-05-06 12:12] LABS: MAGNESIUM 1.5 mg/dL (1.8-2.4); PHOSPHORUS 2.9 mg/dL (2.6-4.7)
[2021-05-06] MEDS: TPN PER PHARMACY MC PRN ×2 (12:28→13:01)
[2021-05-06] MEDS ORDERED: MAGNESIUM SULFATE 2GM 50 ML IV ONE (13:30)
[2021-05-06] MEDS: ATORVASTATIN CALCIUM 20 MG TABLET PO SCH (17:12)
[2021-05-06] MEDS ORDERED: DEXTROSE 70% IV SCH (22:00)
[2021-05-06] MEDS ORDERED: AMINO ACID IV SCH (22:00)
[2021-05-06] MEDS ORDERED: TOTAL PARENTERAL NUTRITION IV SCH (22:00)
[2021-05-06] MEDS ORDERED: [UNRECOGNIZED DRUG - OTHER] IV SCH (22:00)
[2021-05-07] VITALS (25 sets, daily range): BP systolic 145–199; BP diastolic 70–105
[2021-05-07] MEDS: IV DEXTROSE 5 %-0.45 % NACL 1,000 ML IV SCH
[2021-05-07] MEDS: hydrALAZINE 20 MG/ML VIAL. IVP PRN ×2 (01:16→09:59)
[2021-05-07] MEDS: LORazepam 40 MG in IV NORMAL SALINE 250ML 250 ML IV PRN ×3 (01:28→22:22)
[2021-05-07] MEDS: DEXMEDETOMIDINE 400 MCG in IV NORMAL SALINE 100ML 96 ML IV PRN ×4 (01:29→22:22)
[2021-05-07] MEDS: HEPARIN for SUB-Q USE 5,000 UNIT/ML VIAL. SQ SCH ×3 (06:19→22:00)
[2021-05-07 06:33] LABS: CREATININE 0.6 mg/dL (0.7-1.3); GFR 138.4; MAGNESIUM 1.9 mg/dL (1.8-2.4); PHOSPHORUS 2.7 mg/dL (2.6-4.7)
[2021-05-07] MEDS: IPRATROPIUM/ALBUTEROL 20/100mcg/INH INHALER. INH SCH ×4 (08:00→20:00)
[2021-05-07] MEDS: CARVEDILOL 12.5 MG TABLET. PO SCH ×2 (08:00→17:00)
[2021-05-07] MEDS: LACTOBACILLUS RHAMNOSUS GG 1 CAPSULE. PO SCH ×2 (09:00→21:00)
[2021-05-07] MEDS: ALLOPURINOL 100 MG TABLET. PO SCH (09:00)
[2021-05-07] MEDS: DULoxetine HCL 30 MG CAPSULE.DR PO SCH (09:00)
[2021-05-07] MEDS: GABAPENTIN 300 MG CAPSULE. PO SCH ×3 (09:00→18:58)
[2021-05-07] MEDS: ZIPRASIDONE IM 20 MG VIAL. IM PRN (09:51)
[2021-05-07] MEDS: THIAMINE INJ 100 MG in IV DEXTROSE 5% 50 ML IV SCH (09:51)
[2021-05-07] MEDS: TPN PER PHARMACY MC PRN (11:22)
--- NOTE | 2021-05-07 11:23 | NUR ---
Pharmacy TPN Dosing Note S: J Luis Lemus S is a 60 year old M Currently receiving Central Continuous TPN started 05/06/21 B:Pertinent PMH: npo Height: 5 feet, 8 inches Weight: 135.8 kg Current diet: npo LABS: Sodium: 146 Potassium: 3.3 Chloride: 109 Calcium: 9.0 Corrected Calcium: 9.96 Magnesium: 1.9 CO2: 29 SCr: 0.6 Glucose: 127 Albumin: 2.8 AST: 5 ALT: 18 TPN FORMULA: TPN TYPE: Central Continuous AMINO ACIDS: 85 gm DEXTROSE: 300 gm LIPIDS: 30 gm SODIUM CHLORIDE: 10 mEq SODIUM ACETATE: 10 mEq SODIUM PHOSPHATE: mmol POTASSIUM CHLORIDE: 20 mEq POTASSIUM ACETATE: 30 mEq POTASSIUM PHOSPHATE: 20.4 mmol MAGNESIUM: 10 mEq CALCIUM: mEq INSULIN: units MULTIPLE VITAMIN: 10 ml TRACE ELEMENTS: 1ml ml(s) TPN PLAN: Potassium & phosphate low, increase KPhos Decrease NaCl KCL 40meq IV x1 additional per protocol No calcium due to national shortage BMP, Mg, Phos in am R: Continue TPN as ordered Will monitor electrolytes, glucose, and tolerance to TPN. MAT JIMENEZ, [facility], 05/07/21 1123
--- NOTE | 2021-05-07 11:56 | PDOC ---
[employer] PROGRESS NOTE Date of Service DOS: DATE: 05/07/21 TIME: 11:55 Chief Complaint Chief Complaint COVID-19 pneumonia Mechanical fall JOSE DE JESUS due to vasomotor nephropathy Lactic acidemia Polysubstance abuse Alcohol withdrawal, encephalopathy - severe withdrawal Peripheral neuropathy also from alcohol versus his diabetes Acute hypercapnic hypoxic respiratory failure requiring BiPAP Hypertensive urgency R Knee pain - has outpatient f/u at [facility] and orthopedic consultation here. had outpatient MRI Acute toxic and metabolic encephalopathy History alcohol abuse, severe Possible SI - resolved DM2 HTN Anxiety/depression GERD We will start on 10-day IV steroid course Continue O2 supplementation ICU for ETOH withdrawal History of Present Illness History of Present Illness 60-year-old male with PMhx ETOH use disorder, HTN, DM2, TONIA, smoker recurrently admitted for alcohol withdrawal comes to the ED after a fall. He has been apparently stable, but he fell. He complains of some headache and neck pain and back pain,bilateral feet pain, knee pain, elbow pain and hip pain. Admitted for further management and found to have COVID-19 infection. Patient is also requiring oxygen at this time and having shortness of breath. 3: No acute events overnight. Patient seen examined bedside. Alert and awake and lethargic appearing. Afebrile and saturating 98% on 4 L nasal cannula. Mild dyspnea upon rest. [place]id alcohol withdrawal with agitation noted, transferred to ICU for closer monitoring 3: Seen in ICU very agitated with visual hallucinations. Not redirectable. Despite Ativan Haldol Benadryl administration. Ordered as needed Geodon intramuscularly as well as Precedex. cc time 31 min 05/04 . 05/05 Patient evaluated examined at bedside. Able remove four-point restraints but still requiring Precedex and Ativan. Could possibly try to wean sedation coming days and see how patient does. He does remain critically ill. 38 minutes critical care time 05/06 Patient evaluated examined at bedside. He was thrashing around in the bed despite Precedex and Ativan drips on. Remains critically ill. Attempts at weaning sedation unsuccessful. Similar situation on his last admission. Continue current otherwise. 41 minutes critical care time 05/07 Patient evaluated examined at bedside. Require restraints overnight. On ativan precedex. Continue COVID-19 treatment. Remains critically ill. Discussed with bedside RN. 33 minutes critical care time Vitals/I&O Vitals/I&O: Vital Signs Date Time Temp Pulse Resp B/P (MAP) Pulse Ox O2 Delivery O2 Flow Rate FiO2 05/07/21 10:00 83 30 145/81 100 Nasal Cannula 3.0 05/07/21 08:00 98.2 98.2 I & O 05/06/21 05/06/21 05/07/21 15:00 23:00 07:00 Intake Total 538 ml 1180 ml 1679.3 ml Output Total 2450 ml 5275 ml 2925 ml Balance -1912 ml -4095 ml -1245.7 ml Physical Exam General: mild distress Heart: Regular rate Lungs: Clear, Other Abdomen: Normal bowel sounds, No tenderness Extremities: No cyanosis, Normal pulses Skin: No breakdown, No significant lesion Labs Labs: Laboratory Tests Test 05/07/21 05:55 Sodium Level 146 mmol/L (136-145) Potassium Level 3.0 mmol/L (3.5-5.1) Chloride Level 109 mmol/L (98-107) Carbon Dioxide Level 28 mmol/L (21-32) Anion Gap 9 (6-14) Blood Urea Nitrogen 7 mg/dL (8-26) Creatinine 0.6 mg/dL (0.7-1.3) Estimated GFR (Cockcroft-Gault) 138.4 Glucose Level 116 mg/dL (70-99) Calcium Level 9.0 mg/dL (8.5-10.1) Phosphorus Level 2.7 mg/dL (2.6-4.7) Magnesium Level 1.9 mg/dL (1.8-2.4) Triglycerides Level 142 mg/dL (0-150) Assessment and Plan Assessmemt and Plan Problems Medical Problems: (1) Acute renal failure Status: Acute (2) Anemia Status: Acute (3) Back pain Status: Acute (4) Bilateral knee pain Status: Acute (5) Fall down steps Status: Acute (6) Hypoxia Status: Acute (7) Low back pain Status: Acute (8) Neck pain Status: Acute (9) Right elbow pain Status: Acute Comment Review of Relevant I have reviewed the following items marika (where applicable) has been applied. Medications: Current Medications Medications (Trade) Dose Ordered Sig/Julia Route PRN Reason Start Time Stop Time Status Last Admin Dose Admin Thiamine HCl 100 mg/Dextrose 51 ml @ 100 mls/hr DAILY IV 05/07/21 09:00 05/11/21 09:31 05/07/21 09:51 Magnesium Sulfate 50 ml @ 25 mls/hr 1X ONCE IV 05/06/21 13:30 05/06/21 15:29 DC 05/06/21 13:00 Sodium Chloride 90 meq/Potassium Chloride 50 meq/ Potassium Phosphate 13.6 mmol/Magnesium Sulfate 10 meq/ Multivitamins 10 ml/Zinc/Copper/ Manganese/ Selenium 1 ml/ Total Parenteral Nutrition/Amino Acids/Dextrose/ Fat Emulsion Intravenous 1,512 ml @ 63 mls/hr TPN CONT IV 05/06/21 22:00 05/07/21 21:59 05/06/21 21:40 Justifications for Admission Other Justification Alcohol intoxication, PNA TJ CARRENO MD May 07, 2021 11:56
[2021-05-07] MEDS: POTASSIUM CHLORIDE 20MEQ 100 ML IV SCH ×2 (12:32→13:37)
--- NOTE | 2021-05-07 15:59 | NUR ---
SS following up with discharge planning. SS reviewed pt chart and discussed with pt RN. Pt is currently requiring nasal canula oxygen. COVID19 positive. Pt on TPN. Pt still confused and agitated. Pt given Geodon today. Pt on Precedex and Ativan. Mitts in place. Not stable. SS will continue to follow for discharge planning.
[2021-05-07] MEDS: ATORVASTATIN CALCIUM 20 MG TABLET PO SCH (18:58)
[2021-05-07] MEDS ORDERED: AMINO ACID IV SCH (22:00)
[2021-05-07] MEDS ORDERED: TOTAL PARENTERAL NUTRITION IV SCH (22:00)
[2021-05-07] MEDS ORDERED: [UNRECOGNIZED DRUG - OTHER] IV SCH (22:00)
[2021-05-07] MEDS ORDERED: DEXTROSE 70% IV SCH (22:00)
[2021-05-08] VITALS (23 sets, daily range): BP systolic 147–200; BP diastolic 55–118
[2021-05-08] MEDS: DEXMEDETOMIDINE 400 MCG in IV NORMAL SALINE 100ML 96 ML IV PRN ×3 (01:37→12:44)
[2021-05-08] MEDS: LORazepam 40 MG in IV NORMAL SALINE 250ML 250 ML IV PRN ×2 (05:29→16:39)
[2021-05-08] MEDS: HEPARIN for SUB-Q USE 5,000 UNIT/ML VIAL. SQ SCH ×3 (05:29→22:14)
[2021-05-08 06:01] LABS: CALCIUM 8.6 mg/dL (8.5-10.1); CREATININE 0.7 mg/dL (0.7-1.3); GFR 115.8; MAGNESIUM 1.8 mg/dL (1.8-2.4); PHOSPHORUS 3.6 mg/dL (2.6-4.7); POTASSIUM 3.2 mmol/L (3.5-5.1)
[2021-05-08] MEDS: CARVEDILOL 12.5 MG TABLET. PO SCH ×2 (08:00→17:00)
[2021-05-08] MEDS: IPRATROPIUM/ALBUTEROL 20/100mcg/INH INHALER. INH SCH ×4 (08:00→20:00)
[2021-05-08] MEDS: DULoxetine HCL 30 MG CAPSULE.DR PO SCH (08:56)
[2021-05-08] MEDS: LACTOBACILLUS RHAMNOSUS GG 1 CAPSULE. PO SCH ×2 (08:56→20:40)
[2021-05-08] MEDS: GABAPENTIN 300 MG CAPSULE. PO SCH ×3 (08:56→20:40)
[2021-05-08] MEDS: ALLOPURINOL 100 MG TABLET. PO SCH (08:56)
[2021-05-08] MEDS: TPN PER PHARMACY MC PRN (09:24)
[2021-05-08] MEDS: THIAMINE INJ 100 MG in IV DEXTROSE 5% 50 ML IV SCH (10:44)
[2021-05-08] MEDS: hydrALAZINE 20 MG/ML VIAL. IVP PRN (12:45)
--- NOTE | 2021-05-08 15:59 | NUR ---
Pharmacy TPN Dosing Note S: J Luis Lemus S is a 60 year old M Currently receiving Central Continuous TPN started 05/06/21 B:Pertinent PMH: npo Height: 5 feet, 8 inches Weight: 135.176880 kg Current diet: npo LABS: Sodium: 145 Potassium: 3.2 Chloride: 109 Calcium: 8.6 Corrected Calcium: 9.56 Magnesium: 1.8 CO2: 30 SCr: 0.7 Glucose: 180 Albumin: 2.8 AST: 5 ALT: 18 TPN FORMULA: TPN TYPE: Central Continuous AMINO ACIDS: 85 gm DEXTROSE: 300 gm LIPIDS: 30 gm SODIUM CHLORIDE: 10 mEq SODIUM ACETATE: 10 mEq SODIUM PHOSPHATE: mmol POTASSIUM CHLORIDE: 20 mEq POTASSIUM ACETATE: 30 mEq POTASSIUM PHOSPHATE: 20.4 mmol MAGNESIUM: 10 mEq CALCIUM: mEq INSULIN: units MULTIPLE VITAMIN: 10 ml TRACE ELEMENTS: 1ml ml(s) TPN PLAN: No change today No calcium due to national shortage BMP, Mg, Phos in am R: Continue TPN as per the above Will monitor electrolytes, glucose, and tolerance to TPN. LAURA LOYOLA [facility], 05/08/21 1600
[2021-05-08] MEDS: ATORVASTATIN CALCIUM 20 MG TABLET PO SCH (20:40)
[2021-05-08] MEDS ORDERED: DEXTROSE 70% IV SCH (22:00)
[2021-05-08] MEDS ORDERED: AMINO ACID IV SCH (22:00)
[2021-05-08] MEDS ORDERED: [UNRECOGNIZED DRUG - OTHER] IV SCH (22:00)
[2021-05-08] MEDS ORDERED: TOTAL PARENTERAL NUTRITION IV SCH (22:00)
[2021-05-09] VITALS (24 sets, daily range): BP systolic 106–196; BP diastolic 54–114
[2021-05-09] MEDS: DEXMEDETOMIDINE 400 MCG in IV NORMAL SALINE 100ML 96 ML IV PRN ×5 (00:01→22:02)
[2021-05-09] MEDS: LORazepam 40 MG in IV NORMAL SALINE 250ML 250 ML IV PRN ×3 (02:15→18:45)
[2021-05-09] MEDS: HEPARIN for SUB-Q USE 5,000 UNIT/ML VIAL. SQ SCH ×3 (05:49→22:12)
[2021-05-09 05:59] LABS: CALCIUM 8.5 mg/dL (8.5-10.1); CREATININE 0.8 mg/dL (0.7-1.3); GFR 99.3; MAGNESIUM 1.9 mg/dL (1.8-2.4); PHOSPHORUS 4.5 mg/dL (2.6-4.7); POTASSIUM 3.6 mmol/L (3.5-5.1)
[2021-05-09] MEDS: CARVEDILOL 12.5 MG TABLET. PO SCH ×2 (08:00→17:00)
[2021-05-09] MEDS: IPRATROPIUM/ALBUTEROL 20/100mcg/INH INHALER. INH SCH ×4 (08:00→20:00)
[2021-05-09] MEDS: GABAPENTIN 300 MG CAPSULE. PO SCH ×3 (08:25→21:00)
[2021-05-09] MEDS: LACTOBACILLUS RHAMNOSUS GG 1 CAPSULE. PO SCH ×2 (08:25→21:00)
[2021-05-09] MEDS: DULoxetine HCL 30 MG CAPSULE.DR PO SCH (08:25)
[2021-05-09] MEDS: ALLOPURINOL 100 MG TABLET. PO SCH (08:25)
[2021-05-09] MEDS: THIAMINE INJ 100 MG in IV DEXTROSE 5% 50 ML IV SCH (09:11)
[2021-05-09] MEDS: TPN PER PHARMACY MC PRN (09:47)
--- NOTE | 2021-05-09 09:47 | NUR ---
Pharmacy TPN Dosing Note S: J Luis Lemus S is a 60 year old M Currently receiving Central Continuous TPN started 05/06/21 B:Pertinent PMH: prolonged NPO status Height: 5 feet, 8 inches Weight: 125.7 kg Current diet: npo LABS: Sodium: 145 Potassium: 3.6 Chloride: 108 Calcium: 8.5 Corrected Calcium: 9.46 Magnesium: 1.9 CO2: 29 SCr: 0.8 Glucose: 164 Albumin: 2.8 AST: 5 ALT: 18 TPN FORMULA: TPN TYPE: Central Continuous AMINO ACIDS: 85 gm DEXTROSE: 300 gm LIPIDS: 30 gm POTASSIUM ACETATE: 50 mEq POTASSIUM PHOSPHATE: 20.4 mmol MAGNESIUM: 10 mEq MULTIPLE VITAMIN: 10 ml TRACE ELEMENTS: 1 ml TPN PLAN: -Remove sodium from TPN. -Change chloride salts to acetate. -Add thiamine 100 mg to TPN. -BMP tomorrow. R: Continue TPN @ current rate and above formula. Will monitor electrolytes, glucose, and tolerance to TPN. JAVI DAVID [facility], 05/09/21 0970
[2021-05-09] MEDS: ENALAPRILAT 1.25 MG/ML VIAL. IVP PRN (12:43)
--- NOTE | 2021-05-09 14:11 | PDOC ---
[employer] PROGRESS NOTE Date of Service DOS: Late entry May 08 Chief Complaint Chief Complaint COVID-19 pneumonia Mechanical fall JOSE DE JESUS due to vasomotor nephropathy Lactic acidemia Polysubstance abuse Alcohol withdrawal, encephalopathy - severe withdrawal Peripheral neuropathy also from alcohol versus his diabetes Acute hypercapnic hypoxic respiratory failure requiring BiPAP Hypertensive urgency R Knee pain - has outpatient f/u at [facility] and orthopedic consultation here. had outpatient MRI Acute toxic and metabolic encephalopathy History alcohol abuse, severe Possible SI - resolved DM2 HTN Anxiety/depression GERD We will start on 10-day IV steroid course Continue O2 supplementation ICU for ETOH withdrawal History of Present Illness History of Present Illness 60-year-old male with PMhx ETOH use disorder, HTN, DM2, TONIA, smoker recurrently admitted for alcohol withdrawal comes to the ED after a fall. He has been apparently stable, but he fell. He complains of some headache and neck pain and back pain,bilateral feet pain, knee pain, elbow pain and hip pain. Admitted for further management and found to have COVID-19 infection. Patient is also requi ring oxygen at this time and having shortness of breath. 3: No acute events overnight. Patient seen examined bedside. Alert and awake and lethargic appearing. Afebrile and saturating 98% on 4 L nasal cannula. Mild dyspnea upon rest. [place] alcohol withdrawal with agitation noted, transferred to ICU for closer monitoring 05/01: Seen in ICU very agitated with visual hallucinations. Not redirectable. Despite Ativan Haldol Benadryl administration. Ordered as needed Geodon intramuscularly as well as Precedex. cc time 31 min 05/04 . 05/05 Patient evaluated examined at bedside. Able remove four-point restraints but still requiring Precedex and Ativan. Could possibly try to wean sedation coming days and see how patient does. He does remain critically ill. 38 minutes critical care time 05/06 Patient evaluated examined at bedside. He was thrashing around in the bed despite Precedex and Ativan drips on. Remains critically ill. Attempts at weaning sedation unsuccessful. Similar situation on his last admission. Continue current otherwise. 41 minutes critical care time 05/07 Patient evaluated examined at bedside. Require restraints overnight. On ativan precedex. Continue COVID-19 treatment. Remains critically ill. Discussed with bedside RN. 33 minutes critical care time 05/08 Evaluate examined at bedside. Was on room air. Requiring Ativan and Precedex drips. Continue otherwise. Vitals/I&O Vitals/I&O: Vital Signs Date Time Temp Pulse Resp B/P (MAP) Pulse Ox O2 Delivery O2 Flow Rate FiO2 05/09/21 13:00 60 19 154/85 100 Room Air 05/09/21 12:00 97.9 97.9 I & O 05/08/21 05/08/21 05/09/21 15:00 23:00 07:00 Intake Total 0 ml 1726.68 ml 905.84 ml Output Total 1900 ml 1400 ml 520 ml Balance -1900 ml 326.68 ml 385.84 ml Physical Exam General: mild distress Heart: Regular rate Lungs: Clear, Other Abdomen: Normal bowel sounds, No tenderness Extremities: No cyanosis, Normal pulses Skin: No breakdown, No significant lesion Labs Labs: Laboratory Tests Test 05/09/21 05:15 Sodium Level 145 mmol/L (136-145) Potassium Level 3.6 mmol/L (3.5-5.1) Chloride Level 108 mmol/L (98-107) Carbon Dioxide Level 29 mmol/L (21-32) Anion Gap 8 (6-14) Blood Urea Nitrogen 12 mg/dL (8-26) Creatinine 0.8 mg/dL (0.7-1.3) Estimated GFR (Cockcroft-Gault) 99.3 Glucose Level 164 mg/dL (70-99) Calcium Level 8.5 mg/dL (8.5-10.1) Phosphorus Level 4.5 mg/dL (2.6-4.7) Magnesium Level 1.9 mg/dL (1.8-2.4) Assessment and Plan Assessmemt and Plan Problems Medical Problems: (1) Acute renal failure Status: Acute (2) Anemia Status: Acute (3) Back pain Status: Acute (4) Bilateral knee pain Status: Acute (5) Fall down steps Status: Acute (6) Hypoxia Status: Acute (7) Low back pain Status: Acute (8) Neck pain Status: Acute (9) Right elbow pain Status: Acute Comment Review of Relevant I have reviewed the following items marika (where applicable) has been applied. Medications: Current Medications Medications (Trade) Dose Ordered Sig/Julia Route PRN Reason Start Time Stop Time Status Last Admin Dose Admin Sodium Chloride 10 meq/Sodium Acetate 10 meq/ Potassium Chloride 20 meq/ Potassium Acetate 30 meq/Potassium Phosphate 20.4 mmol/Magnesium Sulfate 10 meq/ Multivitamins 10 ml/Zinc/Copper/ Manganese/ Selenium 1 ml/ Total Parenteral Nutrition/Amino Acids/Dextrose/ Fat Emulsion Intravenous 1,512 ml @ 63 mls/hr TPN CONT IV 05/08/21 22:00 05/09/21 21:59 05/08/21 21:58 Justifications for Admission Other Justification Alcohol intoxication, PNA TJ CARRENO MD May 09, 2021 14:10
[2021-05-09] MEDS: hydrALAZINE 20 MG/ML VIAL. IVP PRN (16:15)
--- NOTE | 2021-05-09 20:03 | PDOC ---
[employer] PROGRESS NOTE Date of Service DOS: DATE: 05/09/21 TIME: 20:02 Chief Complaint Chief Complaint COVID-19 pneumonia Mechanical fall JOSE DE JESUS due to vasomotor nephropathy Lactic acidemia Polysubstance abuse Alcohol withdrawal, encephalopathy - severe withdrawal Peripheral neuropathy also from alcohol versus his diabetes Acute hypercapnic hypoxic respiratory failure requiring BiPAP Hypertensive urgency R Knee pain - has outpatient f/u at [facility] and orthopedic consultation here. had outpatient MRI Acute toxic and metabolic encephalopathy History alcohol abuse, severe Possible SI - resolved DM2 HTN Anxiety/depression GERD We will start on 10-day IV steroid course Continue O2 supplementation ICU for ETOH withdrawal History of Present Illness History of Present Illness 60-year-old male with PMhx ETOH use disorder, HTN, DM2, TONIA, smoker recurrently admitted for alcohol withdrawal comes to the ED after a fall. He has been apparently stable, but he fell. He complains of some headache and neck pain and back pain,bilateral feet pain, knee pain, elbow pain and hip pain. Admitted for further management and found to have COVID-19 infection. Patient is also requiring oxygen at this time and having shortness of breath. 3: No acute events overnight. Patient seen examined bedside. Alert and awake and lethargic appearing. Afebrile and saturating 98% on 4 L nasal cannula. Mild dyspnea upon rest. [place]id alcohol withdrawal with agitation noted, transferred to ICU for closer monitoring 3: Seen in ICU very agitated with visual hallucinations. Not redirectable. Despite Ativan Haldol Benadryl administration. Ordered as needed Geodon intramuscularly as well as Precedex. cc time 31 min 05/04 . 05/05 Patient evaluated examined at bedside. Able remove four-point restraints but still requiring Precedex and Ativan. Could possibly try to wean sedation coming days and see how patient does. He does remain critically ill. 38 minutes critical care time 05/06 Patient evaluated examined at bedside. He was thrashing around in the bed despite Precedex and Ativan drips on. Remains critically ill. Attempts at weaning sedation unsuccessful. Similar situation on his last admission. Continue current otherwise. 41 minutes critical care time 05/07 Patient evaluated examined at bedside. Require restraints overnight. On ativan precedex. Continue COVID-19 treatment. Remains critically ill. Discussed with bedside RN. 33 minutes critical care time 05/08 Evaluate examined at bedside. Was on room air. Requiring Ativan and Precedex drips. Continue otherwise. 05/09 Patient evaluated and examined at bedside. Able to open eyes to name but not much else meaningful interaction. Continue on precedex ativan drips. wean as tolerated. Vitals/I&O Vitals/I&O: Vital Signs Date Time Temp Pulse Resp B/P (MAP) Pulse Ox O2 Delivery O2 Flow Rate FiO2 05/09/21 19:00 50 20 127/70 93 Room Air 05/09/21 16:00 98.1 98.1 I & O 05/08/21 05/08/21 05/09/21 15:00 23:00 07:00 Intake Total 0 ml 1726.68 ml 905.84 ml Output Total 1900 ml 1400 ml 520 ml Balance -1900 ml 326.68 ml 385.84 ml Physical Exam General: No acute distress Heart: Regular rate Lungs: Clear, Other Abdomen: Normal bowel sounds, No tenderness Extremities: No cyanosis, Normal pulses Skin: No breakdown, No significant lesion Labs Labs: Laboratory Tests Test 05/09/21 05:15 Sodium Level 145 mmol/L (136-145) Potassium Level 3.6 mmol/L (3.5-5.1) Chloride Level 108 mmol/L (98-107) Carbon Dioxide Level 29 mmol/L (21-32) Anion Gap 8 (6-14) Blood Urea Nitrogen 12 mg/dL (8-26) Creatinine 0.8 mg/dL (0.7-1.3) Estimated GFR (Cockcroft-Gault) 99.3 Glucose Level 164 mg/dL (70-99) Calcium Level 8.5 mg/dL (8.5-10.1) Phosphorus Level 4.5 mg/dL (2.6-4.7) Magnesium Level 1.9 mg/dL (1.8-2.4) Assessment and Plan Assessmemt and Plan Problems Medical Problems: (1) Acute renal failure Status: Acute (2) Anemia Status: Acute (3) Back pain Status: Acute (4) Bilateral knee pain Status: Acute (5) Fall down steps Status: Acute (6) Hypoxia Status: Acute (7) Low back pain Status: Acute (8) Neck pain Status: Acute (9) Right elbow pain Status: Acute Comment Review of Relevant I have reviewed the following items marika (where applicable) has been applied. Medications: Current Medications Medications (Trade) Dose Ordered Sig/Julia Route PRN Reason Start Time Stop Time Status Last Admin Dose Admin Sodium Chloride 10 meq/Sodium Acetate 10 meq/ Potassium Chloride 20 meq/ Potassium Acetate 30 meq/Potassium Phosphate 20.4 mmol/Magnesium Sulfate 10 meq/ Multivitamins 10 ml/Zinc/Copper/ Manganese/ Selenium 1 ml/ Total Parenteral Nutrition/Amino Acids/Dextrose/ Fat Emulsion Intravenous 1,512 ml @ 63 mls/hr TPN CONT IV 05/08/21 22:00 05/09/21 21:59 05/08/21 21:58 Justifications for Admission Other Justification Alcohol intoxication, PNA TJ CARRENO MD May 09, 2021 20:03
[2021-05-09] MEDS: ATORVASTATIN CALCIUM 20 MG TABLET PO SCH (21:00)
[2021-05-09] MEDS ORDERED: TOTAL PARENTERAL NUTRITION IV SCH (22:00)
[2021-05-09] MEDS ORDERED: [UNRECOGNIZED DRUG - OTHER] IV SCH (22:00)
[2021-05-09] MEDS ORDERED: DEXTROSE 70% IV SCH (22:00)
[2021-05-09] MEDS ORDERED: AMINO ACID IV SCH (22:00)
[2021-05-10] VITALS (25 sets, daily range): BP systolic 78–180; BP diastolic 44–107
[2021-05-10] MEDS: DEXMEDETOMIDINE 400 MCG in IV NORMAL SALINE 100ML 96 ML IV PRN (04:11)
[2021-05-10] MEDS: HEPARIN for SUB-Q USE 5,000 UNIT/ML VIAL. SQ SCH ×3 (06:12→21:38)
[2021-05-10] MEDS: LORazepam 40 MG in IV NORMAL SALINE 250ML 250 ML IV PRN (06:12)
[2021-05-10 06:19] LABS: CALCIUM 8.4 mg/dL (8.5-10.1); CREATININE 0.7 mg/dL (0.7-1.3); GFR 115.8; POTASSIUM 4.4 mmol/L (3.5-5.1)
--- NOTE | 2021-05-10 07:30 | NUR ---
Seen and examined patient by this RN, patient is not arousable to deep pain (sternal rub). Precedex drip off since 5 am, Ativan drip ongoing at 5mg/hr. Confirmed with Charge Nurse Erlinda on how to titrate down Ativan drip, she went to bedside and examined patient as well. She said to hold Ativan drip for now and see if patient wakes up as Ativan takes time in the system, CIWA score documented, turned off Ativan drip, will watch out for anxiety, agitation, hallucinations for the need to restart sedations.
[2021-05-10] MEDS: IPRATROPIUM/ALBUTEROL 20/100mcg/INH INHALER. INH SCH ×4 (08:00→20:00)
[2021-05-10] MEDS: CARVEDILOL 12.5 MG TABLET. PO SCH ×2 (08:00→17:00)
[2021-05-10] MEDS: GABAPENTIN 300 MG CAPSULE. PO SCH ×3 (08:02→21:00)
[2021-05-10] MEDS: ALLOPURINOL 100 MG TABLET. PO SCH (08:02)
[2021-05-10] MEDS: LACTOBACILLUS RHAMNOSUS GG 1 CAPSULE. PO SCH ×2 (08:02→21:00)
[2021-05-10] MEDS: DULoxetine HCL 30 MG CAPSULE.DR PO SCH (08:02)
[2021-05-10] MEDS: TPN PER PHARMACY MC PRN (10:14)
--- NOTE | 2021-05-10 10:14 | NUR ---
Pharmacy TPN Dosing Note S: J Luis Lemus S is a 60 year old M Currently receiving Central Continuous TPN started 05/06/21 B:Pertinent PMH: npo Height: 5 feet, 8 inches Weight: 129.9 kg Current diet: npo LABS: Sodium: 144 Potassium: 4.4 Chloride: 108 Calcium: 8.4 Corrected Calcium: 9.36 Magnesium: 1.9 CO2: 32 SCr: 0.7 Glucose: 169 Albumin: 2.8 AST: 5 ALT: 18 TPN FORMULA: TPN TYPE: Central Continuous AMINO ACIDS: 85 gm DEXTROSE: 300 gm LIPIDS: 30 gm POTASSIUM ACETATE: 50 mEq POTASSIUM PHOSPHATE: 20.4 mmol MAGNESIUM: 10 mEq MULTIPLE VITAMIN: 10 ml THIAMINE 100 mg TRACE ELEMENTS: 1 ml TPN PLAN: -Labs stable, no changes in TPN. -CMP, mag, phos, TG tomorrow per protocol. R: Continue TPN @ current rate and above formula. Will monitor electrolytes, glucose, and tolerance to TPN. JAVI DAVID [facility], 05/10/21 1010
[2021-05-10] MEDS: hydrALAZINE 20 MG/ML VIAL. IVP PRN (13:14)
--- NOTE | 2021-05-10 16:40 | PDOC ---
[employer] PROGRESS NOTE Date of Service DOS: DATE: 05/10/21 TIME: 16:39 Chief Complaint Chief Complaint COVID-19 pneumonia Mechanical fall JOSE DE JESUS due to vasomotor nephropathy Lactic acidemia Polysubstance abuse Alcohol withdrawal, encephalopathy - severe withdrawal Peripheral neuropathy also from alcohol versus his diabetes Acute hypercapnic hypoxic respiratory failure requiring BiPAP Hypertensive urgency R Knee pain - has outpatient f/u at [facility] and orthopedic consultation here. had outpatient MRI Acute toxic and metabolic encephalopathy History alcohol abuse, severe Possible SI - resolved DM2 HTN Anxiety/depression GERD We will start on 10-day IV steroid course Continue O2 supplementation ICU for ETOH withdrawal History of Present Illness History of Present Illness 60-year-old male with PMhx ETOH use disorder, HTN, DM2, TONIA, smoker recurrently admitted for alcohol withdrawal comes to the ED after a fall. He has been apparently stable, but he fell. He complains of some headache and neck pain and back pain,bilateral feet pain, knee pain, elbow pain and hip pain. Admitted for further management and found to have COVID-19 infection. Patient is also requiring oxygen at this time and having shortness of breath. 3: No acute events overnight. Patient seen examined bedside. Alert and awake and lethargic appearing. Afebrile and saturating 98% on 4 L nasal cannula. Mild dyspnea upon rest. Florid alcohol withdrawal with agitation noted, transferred to ICU for closer monitoring 3: Seen in ICU very agitated with visual hallucinations. Not redirectable. Despite Ativan Haldol Benadryl administration. Ordered as needed Geodon intramuscularly as well as Precedex. cc time 31 min 05/04 . 05/05 Patient evaluated examined at bedside. Able remove four-point restraints but still requiring Precedex and Ativan. Could possibly try to wean sedation coming days and see how patient does. He does remain critically ill. 38 minutes critical care time 05/06 Patient evaluated examined at bedside. He was thrashing around in the bed despite Precedex and Ativan drips on. Remains critically ill. Attempts at weaning sedation unsuccessful. Similar situation on his last admission. Continue current otherwise. 41 minutes critical care time 05/07 Patient evaluated examined at bedside. Require restraints overnight. On ativan precedex. Continue COVID-19 treatment. Remains critically ill. Discussed with bedside RN. 33 minutes critical care time 05/08 Evaluate examined at bedside. Was on room air. Requiring Ativan and Precedex drips. Continue otherwise. 05/09 Patient evaluated and examined at bedside. Able to open eyes to name but not much else meaningful interaction. Continue on precedex ativan drips. wean as tolerated. 05/10 Patient evaluated examined at bedside. Able to wean off sedation and able to answer yes/no questions. Much improved. Closely monitor mental status. Vitals/I&O Vitals/I&O: Vital Signs Date Time Temp Pulse Resp B/P (MAP) Pulse Ox O2 Delivery O2 Flow Rate FiO2 05/10/21 15:00 84 19 169/90 96 Room Air 05/10/21 12:00 98.1 98.1 I & O 05/09/21 05/09/21 05/10/21 15:00 23:00 07:00 Intake Total 51 ml 1640.64 ml 922.58 ml Output Total 1160 ml 650 ml 265 ml Balance -1109 ml 990.64 ml 657.58 ml Physical Exam General: No acute distress Heart: Regular rate Lungs: Clear, Other Abdomen: Normal bowel sounds, No tenderness Extremities: No cyanosis, Normal pulses Skin: No breakdown, No significant lesion Labs Labs: Laboratory Tests Test 05/10/21 06:05 Sodium Level 144 mmol/L (136-145) Potassium Level 4.4 mmol/L (3.5-5.1) Chloride Level 108 mmol/L (98-107) Carbon Dioxide Level 32 mmol/L (21-32) Anion Gap 4 (6-14) Blood Urea Nitrogen 17 mg/dL (8-26) Creatinine 0.7 mg/dL (0.7-1.3) Estimated GFR (Cockcroft-Gault) 115.8 Glucose Level 169 mg/dL (70-99) Calcium Level 8.4 mg/dL (8.5-10.1) Assessment and Plan Assessmemt and Plan Problems Medical Problems: (1) Acute renal failure Status: Acute (2) Anemia Status: Acute (3) Back pain Status: Acute (4) Bilateral knee pain Status: Acute (5) Fall down steps Status: Acute (6) Hypoxia Status: Acute (7) Low back pain Status: Acute (8) Neck pain Status: Acute (9) Right elbow pain Status: Acute Comment Review of Relevant I have reviewed the following items marika (where applicable) has been applied. Medications: Current Medications Medications (Trade) Dose Ordered Sig/Julia Route PRN Reason Start Time Stop Time Status Last Admin Dose Admin Potassium Acetate 50 meq/Potassium Phosphate 20.4 mmol/Magnesium Sulfate 10 meq/ Multivitamins 10 ml/Zinc/Copper/ Manganese/ Selenium 1 ml/ Thiamine HCl 100 mg/Total Parenteral Nutrition/Amino Acids/Dextrose/ Fat Emulsion Intravenous 1,512 ml @ 63 mls/hr TPN CONT IV 05/09/21 22:00 05/10/21 21:59 05/09/21 22:02 Justifications for Admission Other Justification Alcohol intoxication, PNA TJ CARRENO MD May 10, 2021 16:40
[2021-05-10] MEDS: ATORVASTATIN CALCIUM 20 MG TABLET PO SCH (21:00)
[2021-05-10] MEDS: MORPHINE SULFATE 2 MG/ML INJ. IVP PRN ×2 (21:37→23:43)
[2021-05-10] MEDS ORDERED: AMINO ACID IV SCH (22:00)
[2021-05-10] MEDS ORDERED: TOTAL PARENTERAL NUTRITION IV SCH (22:00)
[2021-05-10] MEDS ORDERED: DEXTROSE 70% IV SCH (22:00)
[2021-05-10] MEDS ORDERED: [UNRECOGNIZED DRUG - OTHER] IV SCH (22:00)
[2021-05-11] VITALS (23 sets, daily range): BP systolic 107–180; BP diastolic 54–113
[2021-05-11] MEDS: MORPHINE SULFATE 2 MG/ML INJ. IVP PRN (02:00)
[2021-05-11] MEDS: HEPARIN for SUB-Q USE 5,000 UNIT/ML VIAL. SQ SCH ×3 (05:59→22:26)
[2021-05-11 07:20] LABS: ALBUMIN 3.1 g/dL (3.4-5.0); ALBUMIN/GLOBULIN RATIO 0.8 (1.0-1.7); CALCIUM 8.6 mg/dL (8.5-10.1); CREATININE 0.7 mg/dL (0.7-1.3); GFR 115.8; MAGNESIUM 1.8 mg/dL (1.8-2.4); PHOSPHORUS 3.4 mg/dL (2.6-4.7); TOTAL BILIRUBIN 0.6 mg/dL (0.2-1.0); TOTAL PROTEIN 7.2 g/dL (6.4-8.2)
[2021-05-11] MEDS: CARVEDILOL 12.5 MG TABLET. PO SCH ×2 (08:00→17:38)
[2021-05-11] MEDS: IPRATROPIUM/ALBUTEROL 20/100mcg/INH INHALER. INH SCH ×4 (08:00→20:00)
--- NOTE | 2021-05-11 08:49 | PDOC ---
[employer] PROGRESS NOTE Date of Service DOS: DATE: 05/11/21 TIME: 08:48 Chief Complaint Chief Complaint COVID-19 pneumonia Mechanical fall JOSE DE JESUS due to vasomotor nephropathy Lactic acidemia Polysubstance abuse Alcohol withdrawal, encephalopathy - severe withdrawal Peripheral neuropathy also from alcohol versus his diabetes Acute hypercapnic hypoxic respiratory failure requiring BiPAP Hypertensive urgency R Knee pain - has outpatient f/u at [facility] and orthopedic consultation here. had outpatient MRI Acute toxic and metabolic encephalopathy History alcohol abuse, severe Possible SI - resolved DM2 HTN Anxiety/depression GERD We will start on 10-day IV steroid course Continue O2 supplementation ICU for ETOH withdrawal History of Present Illness History of Present Illness 60-year-old male with PMhx ETOH use disorder, HTN, DM2, TONIA, smoker recurrently admitted for alcohol withdrawal comes to the ED after a fall. He has been apparently stable, but he fell. He complains of some headache and neck pain and back pain,bilateral feet pain, knee pain, elbow pain and hip pain. Admitted for further management and found to have COVID-19 infection. Patient is also requiring oxygen at this time and having shortness of breath. 3: No acute events overnight. Patient seen examined bedside. Alert and awake and lethargic appearing. Afebrile and saturating 98% on 4 L nasal cannula. Mild dyspnea upon rest. Florid alcohol withdrawal with agitation noted, transferred to ICU for closer monitoring 3: Seen in ICU very agitated with visual hallucinations. Not redirectable. Despite Ativan Haldol Benadryl administration. Ordered as needed Geodon intramuscularly as well as Precedex. cc time 31 min 05/04 . 05/05 Patient evaluated examined at bedside. Able remove four-point restraints but still requiring Precedex and Ativan. Could possibly try to wean sedation coming days and see how patient does. He does remain critically ill. 38 minutes critical care time 05/06 Patient evaluated examined at bedside. He was thrashing around in the bed despite Precedex and Ativan drips on. Remains critically ill. Attempts at weaning sedation unsuccessful. Similar situation on his last admission. Continue current otherwise. 41 minutes critical care time 05/07 Patient evaluated examined at bedside. Require restraints overnight. On ativan precedex. Continue COVID-19 treatment. Remains critically ill. Discussed with bedside RN. 33 minutes critical care time 05/08 Evaluate examined at bedside. Was on room air. Requiring Ativan and Precedex drips. Continue otherwise. 05/09 Patient evaluated and examined at bedside. Able to open eyes to name but not much else meaningful interaction. Continue on precedex ativan drips. wean as tolerated. 05/10 Patient evaluated examined at bedside. Able to wean off sedation and able to answer yes/no questions. Much improved. Closely monitor mental status. 05/11 Patient evaluated examined at bedside. Remains off sedation. Able to actually answer more questions this morning. Still not really following commands. Possible speech evaluation in the next day or 2. Otherwise continue current. Vitals/I&O Vitals/I&O: Vital Signs Date Time Temp Pulse Resp B/P (MAP) Pulse Ox O2 Delivery O2 Flow Rate FiO2 05/11/21 08:00 85 18 150/70 97 Room Air 05/11/21 04:00 99.1 99.1 I & O 05/10/21 05/10/21 05/11/21 15:00 23:00 07:00 Intake Total 58.23 ml 1040.4 ml 460.11 ml Output Total 560 ml 480 ml 405 ml Balance -501.77 ml 560.4 ml 55.11 ml Physical Exam General: No acute distress Heart: Regular rate Lungs: Clear, Other Abdomen: Normal bowel sounds, No tenderness Extremities: No cyanosis, Normal pulses Skin: No breakdown, No significant lesion Labs Labs: Laboratory Tests Test 05/11/21 06:40 Sodium Level 143 mmol/L (136-145) Potassium Level 4.0 mmol/L (3.5-5.1) Chloride Level 103 mmol/L (98-107) Carbon Dioxide Level 30 mmol/L (21-32) Anion Gap 10 (6-14) Blood Urea Nitrogen 18 mg/dL (8-26) Creatinine 0.7 mg/dL (0.7-1.3) Estimated GFR (Cockcroft-Gault) 115.8 BUN/Creatinine Ratio 26 (6-20) Glucose Level 134 mg/dL (70-99) Calcium Level 8.6 mg/dL (8.5-10.1) Phosphorus Level 3.4 mg/dL (2.6-4.7) Magnesium Level 1.8 mg/dL (1.8-2.4) Total Bilirubin 0.6 mg/dL (0.2-1.0) Aspartate Amino Transf (AST/SGOT) 18 U/L (15-37) Alanine Aminotransferase (ALT/SGPT) 34 U/L (16-63) Alkaline Phosphatase 93 U/L (46-116) Total Protein 7.2 g/dL (6.4-8.2) Albumin 3.1 g/dL (3.4-5.0) Albumin/Globulin Ratio 0.8 (1.0-1.7) Triglycerides Level 103 mg/dL (0-150) Assessment and Plan Assessmemt and Plan Problems Medical Problems: (1) Acute renal failure Status: Acute (2) Anemia Status: Acute (3) Back pain Status: Acute (4) Bilateral knee pain Status: Acute (5) Fall down steps Status: Acute (6) Hypoxia Status: Acute (7) Low back pain Status: Acute (8) Neck pain Status: Acute (9) Right elbow pain Status: Acute Comment Review of Relevant I have reviewed the following items marika (where applicable) has been applied. Medications: Current Medications Medications (Trade) Dose Ordered Sig/Julia Route PRN Reason Start Time Stop Time Status Last Admin Dose Admin Potassium Acetate 50 meq/Potassium Phosphate 20.4 mmol/Magnesium Sulfate 10 meq/ Multivitamins 10 ml/Zinc/Copper/ Manganese/ Selenium 1 ml/ Thiamine HCl 100 mg/Total Parenteral Nutrition/Amino Acids/Dextrose/ Fat Emulsion Intravenous 1,512 ml @ 63 mls/hr TPN CONT IV 05/10/21 22:00 05/11/21 21:59 05/10/21 21:37 Morphine Sulfate (Morphine Sulfate) 2 mg PRN Q2HR PRN IVP SEVERE PAIN 7-10 05/10/21 21:30 05/11/21 02:00 Justifications for Admission Other Justification Alcohol intoxication, PNA TJ CARRENO MD May 11, 2021 08:49
[2021-05-11] MEDS: LACTOBACILLUS RHAMNOSUS GG 1 CAPSULE. PO SCH ×2 (09:00→21:09)
[2021-05-11] MEDS: GABAPENTIN 300 MG CAPSULE. PO SCH ×3 (09:00→21:09)
[2021-05-11] MEDS: ALLOPURINOL 100 MG TABLET. PO SCH (09:00)
[2021-05-11] MEDS: DULoxetine HCL 30 MG CAPSULE.DR PO SCH (09:00)
[2021-05-11] MEDS: TPN PER PHARMACY MC PRN (09:16)
[2021-05-11] MEDS: chlordiazePOXIDE HCL 25 MG CAPSULE PO PRN ×2 (12:37→17:39)
--- NOTE | 2021-05-11 15:48 | NUR ---
SS following for discharge planning. SS reviewed pt chart and discussed with pt RN. Pt is currently on room air. COVID19 positive on 04/29/2021. TPN. Pt confused and not following commands. Currently off sedation. Not ready. SS will continue to follow for discharge planning.
[2021-05-11] MEDS: ZIPRASIDONE IM 20 MG VIAL. IM PRN (17:36)
--- NOTE | 2021-05-11 18:26 | NUR ---
Nursing Note Patient has been NPO. Today he had more lucid moments that made it safe to perform a bedside swallow evaluation. Patient passed swallow with thin liquids. Patient had no problem taking pills. Throughout the day when patient was restless or agitated, more alert, medications were used that seemed to assist patient with resting. Hospitalist was notified by lithopone charger
[2021-05-11] MEDS: ATORVASTATIN CALCIUM 20 MG TABLET PO SCH (21:09)
[2021-05-11] MEDS ORDERED: DEXTROSE 70% IV SCH (22:00)
[2021-05-11] MEDS ORDERED: [UNRECOGNIZED DRUG - OTHER] IV SCH (22:00)
[2021-05-11] MEDS ORDERED: TOTAL PARENTERAL NUTRITION IV SCH (22:00)
[2021-05-11] MEDS ORDERED: AMINO ACID IV SCH (22:00)
[2021-05-12] VITALS (24 sets, daily range): BP systolic 80–187; BP diastolic 46–94
[2021-05-12] MEDS: HEPARIN for SUB-Q USE 5,000 UNIT/ML VIAL. SQ SCH ×3 (05:57→23:15)
[2021-05-12] MEDS: LACTOBACILLUS RHAMNOSUS GG 1 CAPSULE. PO SCH ×2 (07:51→21:00)
[2021-05-12] MEDS: DULoxetine HCL 30 MG CAPSULE.DR PO SCH (07:51)
[2021-05-12] MEDS: ALLOPURINOL 100 MG TABLET. PO SCH (07:51)
[2021-05-12] MEDS: CARVEDILOL 12.5 MG TABLET. PO SCH ×2 (07:51→17:16)
[2021-05-12] MEDS: GABAPENTIN 300 MG CAPSULE. PO SCH ×3 (07:51→21:00)
[2021-05-12] MEDS: IPRATROPIUM/ALBUTEROL 20/100mcg/INH INHALER. INH SCH ×2 (08:00→12:00)
--- NOTE | 2021-05-12 09:36 | PDOC ---
[employer] PROGRESS NOTE Date of Service DOS: DATE: 05/12/21 TIME: 09:35 Chief Complaint Chief Complaint COVID-19 pneumonia Mechanical fall JOSE DE JESUS due to vasomotor nephropathy Lactic acidemia Polysubstance abuse Alcohol withdrawal, encephalopathy - severe withdrawal Peripheral neuropathy also from alcohol versus his diabetes Acute hypercapnic hypoxic respiratory failure requiring BiPAP Hypertensive urgency R Knee pain - has outpatient f/u at [facility] and orthopedic consultation here. had outpatient MRI Acute toxic and metabolic encephalopathy History alcohol abuse, severe Possible SI - resolved DM2 HTN Anxiety/depression GERD We will start on 10-day IV steroid course Continue O2 supplementation ICU for ETOH withdrawal History of Present Illness History of Present Illness 60-year-old male with PMhx ETOH use disorder, HTN, DM2, TONIA, smoker recurrently admitted for alcohol withdrawal comes to the ED after a fall. He has been apparently stable, but he fell. He complains of some headache and neck pain and back pain,bilateral feet pain, knee pain, elbow pain and hip pain. Admitted for further management and found to have COVID-19 infection. Patient is also requiring oxygen at this time and having shortness of breath. 3: No acute events overnight. Patient seen examined bedside. Alert and awake and lethargic appearing. Afebrile and saturating 98% on 4 L nasal cannula. Mild dyspnea upon rest. [place]id alcohol withdrawal with agitation noted, transferred to ICU for closer monitoring 3: Seen in ICU very agitated with visual hallucinations. Not redirectable. Despite Ativan Haldol Benadryl administration. Ordered as needed Geodon intramuscularly as well as Precedex. cc time 31 min 05/04 . 05/05 Patient evaluated examined at bedside. Able remove four-point restraints but still requiring Precedex and Ativan. Could possibly try to wean sedation coming days and see how patient does. He does remain critically ill. 38 minutes critical care time 05/06 Patient evaluated examined at bedside. He was thrashing around in the bed despite Precedex and Ativan drips on. Remains critically ill. Attempts at weaning sedation unsuccessful. Similar situation on his last admission. Continue current otherwise. 41 minutes critical care time 05/07 Patient evaluated examined at bedside. Require restraints overnight. On ativan precedex. Continue COVID-19 treatment. Remains critically ill. Discussed with bedside RN. 33 minutes critical care time 05/08 Evaluate examined at bedside. Was on room air. Requiring Ativan and Precedex drips. Continue otherwise. 05/09 Patient evaluated and examined at bedside. Able to open eyes to name but not much else meaningful interaction. Continue on precedex ativan drips. wean as tolerated. 05/10 Patient evaluated examined at bedside. Able to wean off sedation and able to answer yes/no questions. Much improved. Closely monitor mental status. 05/11 Patient evaluated examined at bedside. Remains off sedation. Able to actually answer more questions this morning. Still not really following commands. Possible speech evaluation in the next day or 2. Otherwise continue current. 05/12 Patient evaluated examined at bedside. Continues to be much more alert every day. Still off sedation. Able to take his pills orally now. Formal speech eval ordered. Try to avoid morphine that he is doing p.o. can try oxycodone for pain. Continue current otherwise. Vitals/I&O Vitals/I&O: Vital Signs Date Time Temp Pulse Resp B/P (MAP) Pulse Ox O2 Delivery O2 Flow Rate FiO2 05/12/21 07:51 75 154/72 05/12/21 07:00 22 97 Room Air 05/12/21 04:00 98.7 98.7 I & O 05/11/21 05/11/21 05/12/21 15:00 23:00 07:00 Intake Total 311.69 ml Output Total 450 ml 1140 ml 550 ml Balance -450 ml -828.31 ml -550 ml Physical Exam General: No acute distress Heart: Regular rate Lungs: Clear, Other Abdomen: Normal bowel sounds, No tenderness Extremities: No cyanosis, Normal pulses Skin: No breakdown, No significant lesion Assessment and Plan Assessmemt and Plan Problems Medical Problems: (1) Acute renal failure Status: Acute (2) Anemia Status: Acute (3) Back pain Status: Acute (4) Bilateral knee pain Status: Acute (5) Fall down steps Status: Acute (6) Hypoxia Status: Acute (7) Low back pain Status: Acute (8) Neck pain Status: Acute (9) Right elbow pain Status: Acute Comment Review of Relevant I have reviewed the following items marika (where applicable) has been applied. Medications: Current Medications Medications (Trade) Dose Ordered Sig/Julia Route PRN Reason Start Time Stop Time Status Last Admin Dose Admin Potassium Acetate 50 meq/Potassium Phosphate 20.4 mmol/Magnesium Sulfate 13 meq/ Multivitamins 10 ml/Zinc/Copper/ Manganese/ Selenium 1 ml/ Thiamine HCl 100 mg/Total Parenteral Nutrition/Amino Acids/Dextrose/ Fat Emulsion Intravenous 1,512 ml @ 63 mls/hr TPN CONT IV 05/11/21 22:00 05/12/21 21:59 05/11/21 21:59 Justifications for Admission Other Justification Alcohol intoxication, PNA TJ CARRENO MD May 12, 2021 09:36
[2021-05-12] MEDS: oxyCODONE/APAP 5/325 1 TAB TABLET PO PRN (14:26)
[2021-05-12] MEDS: ATORVASTATIN CALCIUM 20 MG TABLET PO SCH (21:00)
[2021-05-12] MEDS ORDERED: DEXTROSE 70% IV SCH (22:00)
[2021-05-12] MEDS ORDERED: [UNRECOGNIZED DRUG - OTHER] IV SCH (22:00)
[2021-05-12] MEDS ORDERED: TOTAL PARENTERAL NUTRITION IV SCH (22:00)
[2021-05-12] MEDS ORDERED: AMINO ACID IV SCH (22:00)
[2021-05-13] VITALS (14 sets, daily range): BP systolic 79–132; BP diastolic 41–75
[2021-05-13] MEDS: HEPARIN for SUB-Q USE 5,000 UNIT/ML VIAL. SQ SCH ×3 (06:00→22:26)
[2021-05-13 06:45] LABS: CALCIUM 8.4 mg/dL (8.5-10.1); CREATININE 0.9 mg/dL (0.7-1.3); GFR 86.7; MAGNESIUM 2.2 mg/dL (1.8-2.4); PHOSPHORUS 4.6 mg/dL (2.6-4.7); POTASSIUM 4.4 mmol/L (3.5-5.1)
[2021-05-13] MEDS: ACETAMINOPHEN 325 MG TABLET. PO PRN ×2 (06:47→21:26)
[2021-05-13] MEDS: HALOPERIDOL LACTATE 5 MG/ML VIAL. IVP PRN (07:58)
[2021-05-13] MEDS: CARVEDILOL 12.5 MG TABLET. PO SCH ×2 (08:00→15:58)
[2021-05-13] MEDS: ALLOPURINOL 100 MG TABLET. PO SCH (09:00)
[2021-05-13] MEDS: GABAPENTIN 300 MG CAPSULE. PO SCH ×3 (09:00→21:27)
[2021-05-13] MEDS: DULoxetine HCL 30 MG CAPSULE.DR PO SCH (09:00)
[2021-05-13] MEDS: LACTOBACILLUS RHAMNOSUS GG 1 CAPSULE. PO SCH ×2 (09:00→21:26)
[2021-05-13] MEDS: TPN PER PHARMACY MC PRN (11:08)
--- NOTE | 2021-05-13 11:08 | NUR ---
Pharmacy TPN Dosing Note S: J Luis Lemus S is a 60 year old M Currently receiving Central Continuous TPN started 05/06/21 B:Pertinent PMH: npo Height: 5 feet, 8 inches Weight: 129.2 kg Current diet: npo LABS: Sodium: 141 Potassium: 4.4 Chloride: 103 Calcium: 8.4 Corrected Calcium: 9.12 Magnesium: 2.2 CO2: 31 SCr: 0.9 Glucose: 124 Albumin: 3.1 AST: 18 ALT: 34 TPN FORMULA: TPN TYPE: Central Continuous AMINO ACIDS: 85 gm DEXTROSE: 300 gm LIPIDS: 30 gm SODIUM CHLORIDE: - mEq SODIUM ACETATE: - mEq SODIUM PHOSPHATE: mmol POTASSIUM CHLORIDE: - mEq POTASSIUM ACETATE: 50 mEq POTASSIUM PHOSPHATE: 13.6 mmol MAGNESIUM: 10 mEq CALCIUM: mEq INSULIN: units MULTIPLE VITAMIN: 10 ml TRACE ELEMENTS: 1 ml(s) TPN PLAN: Reduce KPhos to 13.6mmol and mag to 10 meq Labs in the am R: Continue TPN as written above. Will monitor electrolytes, glucose, and tolerance to TPN. MELISSA MATA [facility], 05/13/21 1103
[2021-05-13] MEDS: IPRATROPIUM/ALBUTEROL 20/100mcg/INH INHALER. INH SCH ×2 (16:44→20:00)
[2021-05-13] MEDS: MORPHINE SULFATE 2 MG/ML INJ. IVP PRN ×2 (18:38→23:23)
[2021-05-13] MEDS: ATORVASTATIN CALCIUM 20 MG TABLET PO SCH (21:27)
[2021-05-13] MEDS ORDERED: TOTAL PARENTERAL NUTRITION IV SCH (22:00)
[2021-05-13] MEDS ORDERED: [UNRECOGNIZED DRUG - OTHER] IV SCH (22:00)
[2021-05-13] MEDS ORDERED: AMINO ACID IV SCH (22:00)
[2021-05-13] MEDS ORDERED: DEXTROSE 70% IV SCH (22:00)
--- NOTE | 2021-05-13 22:26 | PDOC ---
[employer] PROGRESS NOTE Date of Service DOS: DATE: 05/13/21 TIME: 22:25 Chief Complaint Chief Complaint COVID-19 pneumonia Mechanical fall JOSE DE JESUS due to vasomotor nephropathy Lactic acidemia Polysubstance abuse Alcohol withdrawal, encephalopathy - severe withdrawal Peripheral neuropathy also from alcohol versus his diabetes Acute hypercapnic hypoxic respiratory failure requiring BiPAP Hypertensive urgency R Knee pain - has outpatient f/u at [facility] and orthopedic consultation here. had outpatient MRI Acute toxic and metabolic encephalopathy History alcohol abuse, severe Possible SI - resolved DM2 HTN Anxiety/depression GERD We will start on 10-day IV steroid course Continue O2 supplementation ICU for ETOH withdrawal History of Present Illness History of Present Illness 60-year-old male with PMhx ETOH use disorder, HTN, DM2, TONIA, smoker recurrently admitted for alcohol withdrawal comes to the ED after a fall. He has been apparently stable, but he fell. He complains of some headache and neck pain and back pain,bilateral feet pain, knee pain, elbow pain and hip pain. Admitted for further management and found to have COVID-19 infection. Patient is also requiring oxygen at this time and having shortness of breath. 3: No acute events overnight. Patient seen examined bedside. Alert and awake and lethargic appearing. Afebrile and saturating 98% on 4 L nasal cannula. Mild dyspnea upon rest. [place]id alcohol withdrawal with agitation noted, transferred to ICU for closer monitoring 3: Seen in ICU very agitated with visual hallucinations. Not redirectable. Despite Ativan Haldol Benadryl administration. Ordered as needed Geodon intramuscularly as well as Precedex. cc time 31 min 05/04 . 05/05 Patient evaluated examined at bedside. Able remove four-point restraints but still requiring Precedex and Ativan. Could possibly try to wean sedation coming days and see how patient does. He does remain critically ill. 38 minutes critical care time 05/06 Patient evaluated examined at bedside. He was thrashing around in the bed despite Precedex and Ativan drips on. Remains critically ill. Attempts at weaning sedation unsuccessful. Similar situation on his last admission. Continue current otherwise. 41 minutes critical care time 05/07 Patient evaluated examined at bedside. Require restraints overnight. On ativan precedex. Continue COVID-19 treatment. Remains critically ill. Discussed with bedside RN. 33 minutes critical care time 05/08 Evaluate examined at bedside. Was on room air. Requiring Ativan and Precedex drips. Continue otherwise. 05/09 Patient evaluated and examined at bedside. Able to open eyes to name but not much else meaningful interaction. Continue on precedex ativan drips. wean as tolerated. 05/10 Patient evaluated examined at bedside. Able to wean off sedation and able to answer yes/no questions. Much improved. Closely monitor mental status. 05/11 Patient evaluated examined at bedside. Remains off sedation. Able to actually answer more questions this morning. Still not really following commands. Possible speech evaluation in the next day or 2. Otherwise continue current. 05/12 Patient evaluated examined at bedside. Continues to be much more alert every day. Still off sedation. Able to take his pills orally now. Formal speech eval ordered. Try to avoid morphine that he is doing p.o. can try oxycodone for pain. Continue current otherwise. May 13 patient evaluated examined at bedside. Had received Haldol this morning pretty lethargic when I saw him. He was quite agitated earlier however. Speech evaluation. Try to avoid any sedative medications. Continue current plan otherwise. Vitals/I&O Vitals/I&O: Vital Signs Date Time Temp Pulse Resp B/P (MAP) Pulse Ox O2 Delivery O2 Flow Rate FiO2 05/13/21 19:00 62 13 96 Room Air 05/13/21 18:38 3.0 05/13/21 15:00 98.3 109/61 98.3 I & O 05/12/21 05/12/21 05/13/21 15:00 23:00 07:00 Intake Total 758 ml 548 ml Output Total 330 ml 160 ml 420 ml Balance -330 ml 598 ml 128 ml Physical Exam General: No acute distress Heart: Regular rate Lungs: Clear, Other Abdomen: Normal bowel sounds, No tenderness Extremities: No cyanosis, Normal pulses Skin: No breakdown, No significant lesion Labs Labs: Laboratory Tests Test 05/13/21 06:24 Sodium Level 141 mmol/L (136-145) Potassium Level 4.4 mmol/L (3.5-5.1) Chloride Level 103 mmol/L (98-107) Carbon Dioxide Level 31 mmol/L (21-32) Anion Gap 7 (6-14) Blood Urea Nitrogen 36 mg/dL (8-26) Creatinine 0.9 mg/dL (0.7-1.3) Estimated GFR (Cockcroft-Gault) 86.7 Glucose Level 124 mg/dL (70-99) Calcium Level 8.4 mg/dL (8.5-10.1) Phosphorus Level 4.6 mg/dL (2.6-4.7) Magnesium Level 2.2 mg/dL (1.8-2.4) Assessment and Plan Assessmemt and Plan Problems Medical Problems: (1) Acute renal failure Status: Acute (2) Anemia Status: Acute (3) Back pain Status: Acute (4) Bilateral knee pain Status: Acute (5) Fall down steps Status: Acute (6) Hypoxia Status: Acute (7) Low back pain Status: Acute (8) Neck pain Status: Acute (9) Right elbow pain Status: Acute Comment Review of Relevant I have reviewed the following items marika (where applicable) has been applied. Justifications for Admission Other Justification Alcohol intoxication, PNA TJ CARRENO MD May 13, 2021 22:26
[2021-05-13] MEDS: diphenhydrAMINE 50 MG/ML VIAL IVP PRN (23:21)
[2021-05-14] VITALS: BP 121/54
[2021-05-14 03:00] VITALS: BP 131/60
[2021-05-14] MEDS: oxyCODONE/APAP 5/325 1 TAB TABLET PO PRN (03:33)
[2021-05-14] MEDS: HEPARIN for SUB-Q USE 5,000 UNIT/ML VIAL. SQ SCH (06:04)
[2021-05-14 06:34] LABS: CALCIUM 8.6 mg/dL (8.5-10.1); CREATININE 0.8 mg/dL (0.7-1.3); GFR 99.3; MAGNESIUM 2.1 mg/dL (1.8-2.4); POTASSIUM 4.3 mmol/L (3.5-5.1)
[2021-05-14 07:00] VITALS: BP 147/75
[2021-05-14] MEDS: CARVEDILOL 12.5 MG TABLET. PO SCH (08:00)
[2021-05-14] MEDS: IPRATROPIUM/ALBUTEROL 20/100mcg/INH INHALER. INH SCH (08:00)
[2021-05-14] MEDS: MORPHINE SULFATE 2 MG/ML INJ. IVP PRN (08:28)
[2021-05-14] MEDS: LACTOBACILLUS RHAMNOSUS GG 1 CAPSULE. PO SCH (09:00)
[2021-05-14] MEDS: DULoxetine HCL 30 MG CAPSULE.DR PO SCH (09:00)
[2021-05-14] MEDS: GABAPENTIN 300 MG CAPSULE. PO SCH (09:00)
[2021-05-14] MEDS: ALLOPURINOL 100 MG TABLET. PO SCH (09:00)
--- NOTE | 2021-05-14 09:38 | NUR ---
SS following up with discharge planning. SS reviewed pt chart and discussed with RN, Gail. Pt is currently on room air. COVID19 positive on 04/29/2021. TPN. NPO. ST following. Pt more alert but still confused. Currently off sedation. Not ready. SS will continue to follow for discharge planning.
--- NOTE | 2021-05-14 11:13 | PDOC3 ---
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 had outpatient MRI Acute toxic and metabolic encephalopathy History alcohol abuse, severe Possible SI - resolved DM2 HTN Anxiety/depression GERD We will start on 10-day IV steroid course Continue O2 supplementation ICU for ETOH withdrawal History of Present Illness History of Present Illness 60-year-old male with PMhx ETOH use disorder, HTN, DM2, TONIA, smoker recurrently admitted for alcohol withdrawal comes to the ED after a fall. He has been a pparently stable, but he fell. He complains of some headache and neck pain and back pain,bilateral feet pain, knee pain, elbow pain and hip pain. Admitted for further management and found to have COVID-19 infection. Patient is also requiring oxygen at this time and having shortness of breath. 3: No acute events overnight. Patient seen examined bedside. Alert and awake and lethargic appearing. Afebrile and saturating 98% on 4 L nasal cannula. Mild dyspnea upon rest. Flor[place] alcohol withdrawal with agitation noted, transferred to ICU for closer monitoring 34: Seen in ICU very agitated with visual hallucinations. Not redirectable. Despite Ativan Haldol Benadryl administration. Ordered as needed Geodon intramuscularly as well as Precedex. cc time 31 min 05/04 . 05/05 Patient evaluated examined at bedside. Able remove four-point restraints but still requiring Precedex and Ativan. Could possibly try to wean sedation coming days and see how patient does. He does remain critically ill. 38 minutes cri tical care time 05/06 Patient evaluated examined at bedside. He was thrashing around in the bed despite Precedex and Ativan drips on. Remains critically ill. Attempts at weaning sedation unsuccessful. Similar situation on his last admission. Continue current otherwise. 41 minutes critical care time 05/07 Patient evaluated examined at bedside. Require restraints overnight. On ativan precedex. Continue COVID-19 treatment. Remains critically ill. Discussed with bedside RN. 33 minutes critical care time 05/08 Evaluate examined at bedside. Was on room air. Requiring Ativan and Precedex drips. Continue otherwise. 05/09 Patient evaluated and examined at bedside. Able to open eyes to name but not much else meaningful interaction. Continue on precedex ativan drips. wean as tolerated. 05/10 Patient evaluated examined at bedside. Able to wean off sedation and able to answer yes/no questions. Much improved. Closely monitor mental status. 05/11 Patient evaluated examined at bedside. Remains off sedation. Able to actually answer more questions this morning. Still not really following commands. Possible speech evaluation in the next day or 2. Otherwise continue current. 05/12 Patient evaluated examined at bedside. Continues to be much more alert every day. Still off sedation. Able to take his pills orally now. Formal speech eval ordered. Try to avoid morphine that he is doing p.o. can try oxycodone for pain. Continue current otherwise. May 13 patient evaluated examined at bedside. Had received Haldol this morning pretty lethargic when I saw him. He was quite agitated earlier however. Speech evaluation. Try to avoid any sedative medications. Continue current plan otherwise. 05/14 Evaluated examined at bedside. Much more alert this morning able to get up and ambulate a few steps. Strongly desires to discharge home do not see any particular reason for him to stay. Passed speech eval this morning. We will plan for discharge home today. Greater than 30 minutes spent on discharge. 17 minutes advance care planning Disposition: Disposition/Orders: D/C to Home Activity: Activity: Resume previous activity Diet: Diet: Regular Medications: Home Meds Active Scripts Haloperidol (HALOPERIDOL) 5 Mg Tablet, 1 TAB PO BID for . for 10 Days, #20 TAB 1 Refill Prov:CASTLE,NIAL K III DO 04/27/21 Reported Medications Duloxetine Hcl (CYMBALTA) 60 Mg Capsule.dr, 1 CAP PO DAILY for depression, #90 CAP 3 Refills 04/29/21 Carvedilol (CARVEDILOL) 25 Mg Tablet, 25 MG PO BIDWMEALS for CARDIAC, TAB 04/29/21 Furosemide (FUROSEMIDE) 40 Mg Tablet, 1 TAB PO DAILY for water pill, #30 TAB 5 Refills 04/29/21 Tiotropium [place] (SPIRIVA) 18 Mcg Cap.w.dev, 1 CAP IH DAILY for sob, #30 CAP 3 Refills 08/24/20 Polyethylene Glycol 3350 (POLYETHYLENE GLYCOL 3350) 2,500 Gm Powder, 17 GM PO DAILY PRN for CONSTIPATION, #255 GM 0 Refills 08/24/20 Metformin Hcl (METFORMIN HCL) 1,000 Mg Tablet, 1000 MG PO BID WMEALS for ANTI- DIABETIC, TAB 0 Refills 08/24/20 Lisinopril (LISINOPRIL) 40 Mg Tablet, 1 TAB PO DAILY for htn, #30 TAB 5 Refills 08/24/20 Gabapentin (GABAPENTIN) 300 Mg Capsule, 300 MG PO TID for NEUROGENIC PAIN, CAP 08/24/20 Colchicine (COLCRYS) 0.6 Mg Tablet, 1 TAB PO DAILY PRN for gout for 30 Days, #30 TAB 0 Refills 08/24/20 Atorvastatin Calcium (ATORVASTATIN CALCIUM) 20 Mg Tablet, 1 TAB PO DAILY for cholesterol, #30 TAB 5 Refills 08/24/20 Allopurinol (ALLOPURINOL) 100 Mg Tablet, 1 TAB PO DAILY for gout, #30 TAB 5 Refills 08/24/20 Albuterol Sulfate (PROAIR HFA INHALER) 8.5 Gm Hfa.aer.ad, 2 PUFF IH PRN Q6HRS PRN for WHEEZING for 21 Days, #1 INHALER 0 Refills 08/24/20 Discontinued Scripts Hydrochlorothiazide (HYDROCHLOROTHIAZIDE CAPSULE ) 12.5 Mg Capsule, 12.5 MG PO DAILY for . for 30 Days, #30 CAP Prov:CASTLE,NIAL K III DO 04/27/21 Hydrocodone Bit/Acetaminophen (HYDROCODONE-APAP 10-325 ) 1 Tab Tablet, 1 TAB PO PRN Q6HRS PRN for MODERATE TO SEVERE PAIN for 7 Days, #20 TAB Prov:CASTLE,NIAL K III DO 04/27/21 Azithromycin (AZITHROMYCIN TABLET) 250 Mg Tablet, 250 MG PO DAILY for . for 10 Days, #10 TAB Prov:CASTLE,NIAL K III DO 04/27/21 Cephalexin (KEFLEX) 250 Mg Capsule, 750 MG PO BID for . for 10 Days, #20 CAP Prov:CASTLE,NIAL K III DO 04/27/21 Scheduled Allopurinol (Allopurinol), 1 TAB PO DAILY, (Reported) Atorvastatin Calcium (Atorvastatin Calcium), 1 TAB PO DAILY, (Reported) Carvedilol (Carvedilol), 25 MG PO BIDWMEALS, (Reported) Duloxetine Hcl (Cymbalta), 1 CAP PO DAILY, (Reported) Furosemide (Furosemide), 1 TAB PO DAILY, (Reported) Gabapentin (Gabapentin), 300 MG PO TID, (Reported) Haloperidol (Haloperidol), 1 TAB PO BID Lisinopril (Lisinopril), 1 TAB PO DAILY, (Reported) Metformin Hcl (Metformin Hcl), 1,000 MG PO BID WMEALS, (Reported) Tiotropium [place] (Spiriva), 1 CAP IH DAILY, (Reported) Scheduled PRN Albuterol Sulfate (Proair Hfa Inhaler), 2 PUFF IH PRN Q6HRS PRN for WHEEZING, (Reported) Colchicine (Colcrys), 1 TAB PO DAILY PRN for gout, (Reported) Polyethylene Glycol 3350 (Polyethylene Glycol 3350), 17 GM PO DAILY PRN for CONSTIPATION, (Reported) Discontinued Medications Azithromycin (Azithromycin Tablet), 250 MG PO DAILY Cephalexin (Keflex), 750 MG PO BID Hydrochlorothiazide (Hydrochlorothiazide Capsule ), 12.5 MG PO DAILY Hydrocodone Bit/Acetaminophen (Hydrocodone-Apap 10-325 ), 1 TAB PO PRN Q6HRS PRN for MODERATE TO SEVERE PAIN Justicifation of Admission Dx: Justifications for Admission: Justification of Admission Dx: Yes Respiratory Failure: Mechanical Ventilation Altered Mental Status: Altered Mental Status TJ CARRENO MD May 14, 2021 11:13
== END 2021-05-14 12:45 | disposition home or self-care (01) | DRG 177 ==
LOC: ER 20:46 → 5 SOUTH 23:39 → 5 NORTH 04-30 05:30 → 1 WEST ICU 05-01 02:47
PROVIDERS: ADMIT Internal Medicine; ATTEND Internal Medicine
PROC: 5A09357 Assistance with Respiratory Ventilation, Less than 24 Consecutive Hours, Continuous Positive Airway Pressure (ICD-10-PCS; principal; 2021-04-29)
DX: U07.1 COVID-19 (principal); J96.01 Acute respiratory failure with hypoxia; G92.8 Other toxic encephalopathy; J12.82 Pneumonia due to coronavirus disease 2019; N17.0 Acute kidney failure with tubular necrosis; F10.239 Alcohol dependence with withdrawal, unspecified; J98.11 Atelectasis; F11.20 Opioid dependence, uncomplicated; D64.9 Anemia, unspecified; E86.0 Dehydration; F32.A Depression, unspecified; F41.9 Anxiety disorder, unspecified; G62.9 Polyneuropathy, unspecified; I10 Essential (primary) hypertension; K21.9 Gastro-esophageal reflux disease without esophagitis; Z78.1 Physical restraint status; R29.6 Repeated falls; S00.03XA Contusion of scalp, initial encounter; W10.9XXA Fall (on) (from) unspecified stairs and steps, initial encounter; Z83.3 Family history of diabetes mellitus; Z87.01 Personal history of pneumonia (recurrent); Z87.891 Personal history of nicotine dependence; Z96.659 Presence of unspecified artificial knee joint; G47.33 Obstructive sleep apnea (adult) (pediatric); G89.29 Other chronic pain; M10.9 Gout, unspecified; M19.90 Unspecified osteoarthritis, unspecified site; Y93.89 Activity, other specified; Y92.89 Other specified places as the place of occurrence of the external cause; Y99.8 Other external cause status; I16.0 Hypertensive urgency; F19.10 Other psychoactive substance abuse, uncomplicated; K59.00 Constipation, unspecified; W18.39XA Other fall on same level, initial encounter; E11.42 Type 2 diabetes mellitus with diabetic polyneuropathy
CPT/HCPCS: 36415; 36569; 36600; 70450; 70486; 71045; 72125; 72128; 72131; 73080; 73502; 76770; 80048; 80053; 80307; 81001; 82553; 82607; 82805; 83605; 83735; 83880; 83930; 84100; 84145; 84443; 84478; 84484; 85025; 86140; 86592; 87040; 87428; 93005; 94640; 94660; 96360; G0480; J0360; J1200; J1630; J1644; J2060; J2250; J2270; J2405; J2920; J3411; J3475; J3480; J3486; J3490; J7030; J7042; J7050; J7060; U0003; 73564-50; 73630-50; 92610-GN; 97116-GP; 97535-GO; 99285-25; G0378

== ENCOUNTER 2021-05-23 21:49 | Inpatient (IN) | payer OTHER ==
[~2021-05-23] VITALS: Ht 172.7 cm; Wt 132.5 kg
[~2021-05-23 21:49] MED LIST changes: +CARV25TA2 PO; +DULO60CA7 PO; +FURO40TA4 PO
--- NOTE | 2021-05-23 22:16 | PHYS DOC ---
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 He was recently admitted here for complications related to polysubstance abuse and alcohol withdrawal. The patient reports that he has fallen multiple times at home. He denies loss of consciousness. He thinks he may have hit his head. He denies any premonitory symptoms. He reports that he trips and falls frequently. He denies dizziness or vertigo symptoms. He reports that he has had several days of intermittent chest pressure, though he is unable to articulate any details of this. He denies dyspnea. He denies co ugh, hemoptysis, fevers, chills. He denies abdominal pain, nausea, vomiting, diarrhea, constipation. He denies urinary symptoms. He admits that has not been eating and drinking as much, he has a decreased appetite. He does report that he is fallen multiple times on both knees and reports he fell onto the right wrist. He is complaining of mild wrist pain, mostly with movement, no pain at rest. He reports that he has not had any alcohol since before he was admitted to the hospital. He denies use of any sedatives, though his urine drug screen is positive for benzodiazepines. Review of Systems: Review of Systems: Constitutional: Denies fever or chills. [] Eyes: Denies acute vision loss or acute changes in vision. HENT: Denies nasal congestion or sore throat. [] Respiratory: Denies cough, hemoptysis, denies shortness of breath or wheezing Cardiovascular: Reports intermittent mild chest pressure over the last several days, he denies any active chest pain or pressure at present GI: Denies abdominal pain, nausea, vomiting, or diarrhea or constipation : Denies urinary symptoms or incontinence. Musculoskeletal: Reports "pain all over" including bilateral knee pain, right wrist pain. He denies focal neck or back pain. Integument: Denies rash. [] Neurologic: Denies headache, focal weakness or sensory changes. He reports generalized, nonfocal weakness. Denies numbness or tingling. Multiple falls and generalized weakness. He denies syncope or loss of consciousness. Endocrine: Denies polyuria or polydipsia. [] Lymphatic: Denies swollen glands. [] Psychiatric: Chronic mood disturbance, denies acute changes, denies SI or HI, denies acute anxiety symptoms Heart Score: C/O Chest Pain: Yes HEART Score for Chest Pain: HEART Score for Chest Pain Response (Comments) Value History Slighlty/Non-Suspicious 0 ECG Nonspecific Repolarizatio 1 Age >45 - < 65 1 Risk Factors >3 Risk Factors or Hx CAD 2 Troponin < Normal Limit 0 Total 4 Risk Factors: Risk Factors: DM, Current or recent (<one month) smoker, HTN, HLP, family history of CAD, obesity. Risk Scores: Score 0 - 3: 2.5% MACE over next 6 weeks - Discharge Home Score 4 - 6: 20.3% MACE over next 6 weeks - Admit for Clinical Observation Score 7 - 10: 72.7% MACE over next 6 weeks - Early Invasive Strategies Allergies: Allergies: Allergies Coded Allergies Type Severity Reaction Last Updated Verified No Known Drug Allergies 04/28/21 No Physical Exam: PE: Constitutional: Well developed, well nourished, no acute distress, non-toxic appearance. He is chronically ill-appearing. He appears older than stated age. He is relatively disheveled. HENT: Normocephalic, atraumatic, oropharynx is patent and clear. Mucous membranes slightly tacky. External ears are normal bilaterally. TMs are clear bilaterally. No facial or oral trauma or edema noted. Nares are patent and tracy ar, no rhinorrhea or epistaxis. Eyes: PERRL, EOMI, conjunctiva normal, no discharge. No scleral icterus. Neck: Normal range of motion, no tenderness, supple, no stridor. Trachea is midline. No JVD. No meningismus. No midline tenderness or step-offs. No deformity Cardiovascular:Heart rate regular rhythm, +2 radial and +2 posterior tibial pulses bilaterally Lungs & Thorax: Bilateral breath sounds clear to auscultation [] Abdomen: Abdomen obese, soft, nondistended, nontender to palpation. No flank abdominal ecchymoses. Multiple well-healed scars and large reducible hernia defects on the anterior abdomen. Normal bowel sounds. No palpable pulsatile mass. No CVA tenderness. Skin: Warm, dry, no erythema, no rash. Poor skin turgor. No open wounds, lacer ations or abrasions. Back: No tenderness, no CVA tenderness. No deformity. No midline tenderness or step-offs. Extremities: No acute limb deformity. Bilateral nonpitting symmetric lower extremity edema. No calf tenderness. Pelvis is stable. Minimal and inconsistent tenderness of the bilateral anterior knees. No ligamentous laxity is noted. He is able to fully flex and extend both knees with and without resistance. No hip tenderness, full painless active and passive range of motion of both hips. Mild mid volar right wrist tenderness. No significant swelling. No obvious deformity. +2 radial pulse. Cap refill is brisk. No snuffbox tenderness. No palpable step-offs or crepitus noted. Neurologic: He is drowsy, opens his eyes to voice, awakens to voice, localizes to pain, follows commands, 5 out of 5 motor strength all 4 extremities. No limb ataxia. Speech is slow, content is slow, speech is overall fluent, no dysarthria, no aphasia. Incision is grossly intact. Psychologic: Affect is flat Current Patient Data: Labs: Laboratory Tests Test 05/23/21 22:04 Glucose (Fingerstick) 105 mg/dL (70-99) H EKG: EKG: EKG is interpreted at 2220 Rhythm is sinus Rate is 67 bpm [place] is normal artifact No STEMI compared with EKG on 04/19/21, no significant change Radiology/Procedures: Radiology/Procedures: IMAGING REPORT Signed PATIENT: FAZAL DIANA ACCOUNT: [id number] : 1960 LOCATION: ER AGE: 60 SEX: M EXAM STATUS: REG ER ORD. PHYSICIAN: JAVI SOLOMON DO REASON: falls, weakness PROCEDURE: CT HEAD AND CERVICAL SPINE WO Exam: CT head and cervical spine without contrast INDICATION: Falls, weakness TECHNIQUE: Sequential axial images through the head and cervical spine were obtained without the administration of IV contrast. Exposure: One or more of the following in the visualized dose reduction techniques were utilized for this examination: 1. Automated exposure control 2. Adjustment of the MA and/or KV according to patient size 3. Use of iterative of reconstructive technique Comparisons: None FINDINGS: Head: No focal parenchymal lesion or hemorrhage is identified. There is no midline shift or sulcal effacement. No acute vascular territory infarction is identified. Mcfadden-white distinction is preserved. The ventricular system is within normal limits without compression hydrocephalus. The basal cisterns are well maintained. The visualized portions of the paranasal sinuses and mastoid air cells are well- pneumatized. No acute fractures. Cervical spine: Straightening of cervical spine which may positional. Vertebral body heights are well-maintained. Fracture to the cervical spine is not identified. No significant spondylotic change in the cervical spine. Visualized paraspinal soft tissues are unremarkable. IMPRESSION: 1. No acute intracranial abnormality. 2. Negative CT C-spine for acute traumatic injury. Electronically signed by: David Crain MD (05/23/2021 11:36 PM) LINDA DICTATED and SIGNED BY: DAVID CRAIN MD DATE: 05/23/21 2331 IMAGING REPORT Signed PATIENT: FAZAL DIANA ACCOUNT: [id number] : 1960 LOCATION: ER AGE: 60 SEX: M EXAM STATUS: REG ER ORD. PHYSICIAN: JAVI SOLOMON DO REASON: chest pain PROCEDURE: PORTABLE CHEST 1V Exam: Chest one view INDICATION: Chest pain TECHNIQUE: Frontal view of the chest Comparisons: 05/03/2021 FINDINGS: The cardiomediastinal silhouette and pulmonary vessels are within normal limits. Left basilar airspace disease. No pleural effusion. IMPRESSION: Subtle left basilar airspace disease may relate to atelectasis or developing infectious process. Electronically signed by: David Crain MD (05/23/2021 10:50 PM) LINDA DICTATED and SIGNED BY: DAVID CRAIN MD DATE: 05/23/21 1381 IMAGING REPORT Signed PATIENT: FAZAL DIANA ACCOUNT: [id number] : 1960 LOCATION: [address] [place] [address] AGE: 60 SEX: M EXAM STATUS: ADM IN ORD. PHYSICIAN: JAVI SOLOMON DO REASON: pain PROCEDURE: WRIST 3V RIGHT EXAMINATION: XR RT WRIST 3VIEWS CLINICAL HISTORY: Wrist pain. TECHNIQUE: XR RT WRIST 3VIEWS COMPARISON: None FINDINGS/ IMPRESSION: Mild degenerative changes first CMC joint. Small ossicles along the posterior wrist on lateral view, likely related to acute fracture given overlying soft tissue swelling. This may be related to a triquetral fracture. Electronically signed by: Dary Levy DO (05/24/2021 2:09 AM) [facility] DICTATED and SIGNED BY: DARY LEVY DO DATE: 05/24/21207 Course & Med Decision Making: Course & Med Decision Making Pertinent Labs and Imaging studies reviewed. (See chart for details) The patient declined pain medication. He is been falling asleep intermittently and resting comfortably throughout the ED course. There is a questionable subtle fracture near the first carpometacarpal joint, though this is not the area of tenderness. I have ordered a Velcro wrist splint for immobilization. The patient is given IV fluids. Renal function appears to be worse from baseline. He clinically appears to be somewhat dry. I have concerns that he manifests evidence of failure to thrive, loss of concerns he is misusing medications, as he claims to take no sedatives and is positive for benzodiazepines. Clinically, he does not appear to have pneumonia, he denies cough, dyspnea, no fever, no leukocytosis. Therefore no antibiotics will be given at this time. I suspect atelectasis as the underlying etiology of the chest x-ray findings. I have recommended hospitalization, oncology social worker consult and have strongly recommend he consider formal rehabilitation services. He is amenable to this. He is accepted for admission by Dr. Valdovinos. Wyatt Disclaimer: Wyatt Disclaimer: This electronic medical record was generated, in whole or in part, using a voice recognition dictation system. Departure Departure Impression: Primary Impression: Generalized weakness Additional Impressions: Multiple falls Right wrist fracture Qualified Codes: S62.101A - Fracture of unspecified carpal bone, right wrist, initial encounter for closed fracture Failure to thrive Qualified Codes: R62.7 - Adult failure to thrive Acute kidney injury History of alcohol use disorder Disposition: ADMITTED INPATIENT Admitting Physician: DOMINICK (Dr. Valdovinos) Condition: GUARDED Referrals: NO PCP (PCP) JAVI SOLOMON DO May 23, 2021 22:16
--- NOTE | 2021-05-23 22:52 | RAD ---
Exam: Chest one view INDICATION: Chest pain TECHNIQUE: Frontal view of the chest Comparisons: 05/03/2021 FINDINGS: The cardiomediastinal silhouette and pulmonary vessels are within normal limits. Left basilar airspace disease. No pleural effusion. IMPRESSION: Subtle left basilar airspace disease may relate to atelectasis or developing infectious process. Electronically signed by: David Gill MD (05/23/2021 10:50 PM) TASHI
[2021-05-23 23:15] LABS: BASO # 0.1 x10^3/uL (0.0-0.2); BASO % 1 % (0-3); EOS # 0.3 x10^3/uL (0.0-0.7); EOS % 3 % (0-3); HEMATOCRIT 31.7 % (39.0-53.0); HEMOGLOBIN 10.5 g/dL (13.0-17.5); LYMPH % 24 % (24-48); MEAN CORPUSCULAR HEMOGLOBIN 31 pg (25-35); MEAN CORPUSCULAR HGB CONC 33 g/dL (31-37); MEAN CORPUSCULAR VOLUME 95 fL (79-100); MONO # 0.5 x10^3/uL (0.0-1.1); MONO % 6 % (0-9); NEUT # 5.6 x10^3/uL (1.8-7.7); NEUT % 66 % (31-73); PLATELET COUNT 443 x10^3/uL (140-400); RED BLOOD COUNT 3.35 x10^6/uL (4.30-5.70); RED CELL DISTRIBUTION WIDTH 13.6 % (11.5-14.5); WHITE BLOOD COUNT 8.5 x10^3/uL (4.0-11.0)
[2021-05-23 23:25] LABS: CALCIUM 8.6 mg/dL (8.5-10.1); CREATININE 1.9 mg/dL (0.7-1.3); GFR 36.6; POTASSIUM 4.5 mmol/L (3.5-5.1)
[2021-05-23 23:27] LABS: ACETAMIN < 2 mcg/ml (10-30); ETHANOL < 10 mg/dL (0-10); SALIC 1.4 mg/dL (2.8-20.0)
[2021-05-23 23:38] LABS: ALBUMIN 3.1 g/dL (3.4-5.0); ALBUMIN/GLOBULIN RATIO 0.8 (1.0-1.7); MAGNESIUM 1.6 mg/dL (1.8-2.4); TOTAL BILIRUBIN 0.3 mg/dL (0.2-1.0); TOTAL PROTEIN 6.8 g/dL (6.4-8.2)
--- NOTE | 2021-05-23 23:39 | RAD ---
Exam: CT head and cervical spine without contrast INDICATION: Falls, weakness TECHNIQUE: Sequential axial images through the head and cervical spine were obtained without the admi nistration of IV contrast. Exposure: One or more of the following in the visualized dose reduction techniques were utilized for this examination: 1. Automated exposure control 2. Adjustment of the MA and/or KV according to patient size 3. Use of iterative of reconstructive technique Comparisons: None FINDINGS: Head: No focal parenchymal lesion or hemorrhage is identified. There is no midline shift or sulcal effaceme nt. No acute vascular territory infarction is identified. Mcfadden-white distinction is preserved. The ventricular system is within normal limits without compression hydrocephalus. The basal cisterns are well maintained. The visualized portions of the paranasal sinuses and mastoid air cells are well-pneumatized. No acute fractures. Cervical spine: Straightening of cervical spine which may positional. Vertebral body heights are well-maintained. Fracture to the cervical spine is not identified. No significant spondylotic change in the cervical spine. Visualized paraspinal soft tissues are unremarkable. IMPRESSION: 1. No acute intracranial abnormality. 2. Negative CT C-spine for acute traumatic injury. Electronically signed by: David Gill MD (05/23/2021 11:36 PM) [facility]
[2021-05-24] MEDS ORDERED: IV NORMAL SALINE 1000ML BAG 1,000 ML IV ONE ×2 (00:30→07:45)
--- NOTE | 2021-05-24 02:12 | RAD ---
EXAMINATION: XR RT WRIST 3VIEWS CLINICAL HISTORY: Wrist pain. TECHNIQUE: XR RT WRIST 3VIEWS COMPARISON: None FINDINGS/ IMPRESSION: Mild degenerative changes first CMC joint. Small ossicles along the posterior wrist on lateral view, likely related to acute fracture given overlying soft tissue swelling. This may be related to a triqu etral fracture. Electronically signed by: Brendan Gillespie DO (05/24/2021 2:09 AM) JUAN
[2021-05-24] MEDS ORDERED: HYDR-2769 PO (03:33)
[2021-05-24 03:34] LABS: AMPHETAMINE/METHAMPHETAMINE NEG (NEG); BARBITURATES NEG (NEG); BENZODIAZEPINES POS (NEG); CANNABINOIDS NEG (NEG); COCAINE NEG (NEG); METHADONE NEG (NEG); OPIATES NEG (NEG); PHENCYCLIDINE NEG (NEG)
[2021-05-24 03:37] VITALS: BP 111/63
[2021-05-24 03:56] LABS: BACTERIA,URINE 0 /HPF (0-FEW); HYALINE CASTS, URINE MODERATE /HPF; RBC,URINE 0 /HPF (0-2); WBC,URINE RARE /HPF (0-4)
--- NOTE | 2021-05-24 04:00 | EKG ---
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
[2021-05-24] MEDS ORDERED: IV DEXTROSE 5% 250 ML BAG. IV PRN (04:30)
[2021-05-24] MEDS ORDERED: fentaNYL PF VIAL 100 MCG/2 ML VIAL IVP PRN (04:30)
[2021-05-24] MEDS ORDERED: DEXTROSE 50% 25 GM / 50ML DISP.SYRIN. IV PRN (04:30)
[2021-05-24] MEDS: HYDROcodone/APAP 10/325 1 TAB TABLET PO PRN ×3 (04:50→17:32)
[2021-05-24 07:00] VITALS: BP_SYST 132; BP_SYST 85; BP_DIAS 62; BP_DIAS 70
[2021-05-24] MEDS: INSULIN LISPRO 300 UNITS/3 ML VIAL. SQ SCH ×4 (07:30→21:00)
[2021-05-24] MEDS ORDERED: guaiFENesin DM 200MG/20MG 10 ML SYRUP PO PRN (07:45)
[2021-05-24] MEDS ORDERED: ACETAMINOPHEN 325 MG TABLET. PO PRN (07:45)
[2021-05-24] MEDS ORDERED: ONDANSETRON PF 4 MG/2 ML VIAL. IVP PRN (07:45)
--- NOTE | 2021-05-24 09:06 | PDOC1 ---
History and Physical Date of Service: DOS: DATE: 05/24/21 TIME: 09:01 Chief Complaint: Chief Complain: Multiple complaints History of Present Illness: HPI: 60 year old male who is brought in by EMS for multiple vague complaints. He was recently admitted here for complications related to polysubstance abuse and alcohol withdrawal. The patient reports that he has fallen multiple times at home. He denies loss of consciousness. He thinks he may have hit his head. He denies any premonitory symptoms. He reports that he trips and falls frequently. He denies dizziness or vertigo symptoms. He reports that he has had several days of intermittent chest pressure, though he is unable to articulate any details of this. He denies dyspnea. He denies cough, hemoptysis, fevers, ch ills. He denies abdominal pain, nausea, vomiting, diarrhea, constipation. He denies urinary symptoms. He admits that has not been eating and drinking as much, he has a decreased appetite. He does report that he is fallen multiple times on both knees and reports he fell onto the right wrist. He is complaining of mild wrist pain, mostly with movement, no pain at rest. He reports that he has not had any alcohol since before he was admitted to the hospital. He denies use of any sedatives, though his urine drug screen is positive for benzodiazepines. 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, UNABLE TO BE REDIRECTED FOR THESE QUESTIONS, TONIA, CKD Past Surgical History: HERNIA WITH MULTIPLE SURGERIES Allergies: Allergies: Coded Allergies: No Known Drug Allergies (Unverified , 04/28/21) Family History: Family History: Reviewed with no relative findings in the chart Social History: Social History: Smoking Status: Current Some Day Smoker Alcohol Use: Heavy Drug Use: None Current Medications: Current Medications Current Medications Sodium Chloride 1,000 ml @ 1,000 mls/hr 1X ONCE IV Last administered on 05/24/21at 00:01; Start 05/24/21 at 00:30; Stop 05/24/21 at 01:29; Status DC Lorazepam (Ativan) 4 mg PRN Q1HR PRN PO For CIWA 8-14; Start 05/24/21 at 04:30 Lorazepam (Ativan) 2 mg PRN Q1HR PRN PO For CIWA 15 or greater; Start 05/24/21 at 04:30 Lorazepam (Ativan Inj) 2 mg PRN Q1HR PRN IV For CIWA 8-14; Start 05/24/21 at 04:30 Lorazepam (Ativan Inj) 4 mg PRN Q1HR PRN IV For CIWA 15 or greater; Start 05/24/21 at 04:30 Insulin Human Lispro (HumaLOG) 0-9 UNITS QIDACHS SQ ; Start 05/24/21 at 07:30 Dextrose (Dextrose 50%-Water Syringe) 12.5 gm PRN Q15MIN PRN IV SEE COMMENTS; Start 05/24/21 at 04:30; Status UNV Dextrose (Iv Dextrose 5%) 250 ml PRN Q15MIN PRN IV SEE COMMENTS; Start 05/24/21 at 04:30 Fentanyl Citrate (Fentanyl 2ml Vial) 75 mcg PRN Q3HRS PRN IVP SEVERE PAIN 7-10; Start 05/24/21 at 04:30 Acetaminophen/ Hydrocodone Bitart (Lortab 10/325) 1 tab PRN Q6HRS PRN PO SEVERE PAIN 7-10 Last administered on 05/24/21at 04:50; Start 05/24/21 at 04:30 Acetaminophen (Tylenol) 650 mg PRN Q6HRS PRN PO MILD PAIN / TEMP > 100.3'F; Start 05/24/21 at 07:45 Olanzapine (ZyPREXA ZYDIS) 5 mg PRN BID PRN PO ANXIETY / AGITATION; Start 05/24/21 at 07:45 Ondansetron HCl (Zofran) 4 mg PRN Q4HRS PRN IVP NAUSEA/VOMITING; Start 05/24/21 at 07:45 Guaifenesin (Robitussin Dm) 10 ml PRN Q6HRS PRN PO COUGH; Start 05/24/21 at 07:45 Enoxaparin Sodium (Lovenox 40mg Syringe) 40 mg Q12H SQ ; Start 05/24/21 at 09:00 Sodium Chloride 1,000 ml @ 125 mls/hr 1X ONCE IV ; Start 05/24/21 at 07:45; Stop 05/24/21 at 15:44 Thiamine Mononitrate (Vitamin B-1) 100 mg DAILY PO ; Start 05/24/21 at 09:00 Folic Acid (Folic Acid) 1 mg DAILY PO ; Start 05/24/21 at 09:00 Active Scripts Active Haloperidol 5 Mg Tablet 1 Tab PO BID 10 Days Reported Hydrocodone-Apap 10-325 (Hydrocodone Bit/Acetaminophen) 1 Tab Tablet 1 Tab PO PRN Q6HRS PRN Cymbalta (Duloxetine Hcl) 60 Mg Capsule.dr 1 Cap PO DAILY Carvedilol 25 Mg Tablet 25 Mg PO BIDWMEALS Furosemide 40 Mg Tablet 1 Tab PO DAILY Spiriva (Tiotropium [place]) 18 Mcg Cap.w.dev 1 Cap IH DAILY Polyethylene Glycol 3350 2,500 Gm Powder 17 Gm PO DAILY PRN Metformin Hcl 1,000 Mg Tablet 1,000 Mg PO BID WMEALS Lisinopril 40 Mg Tablet 1 Tab PO DAILY Gabapentin 300 Mg Capsule 300 Mg PO TID Colcrys (Colchicine) 0.6 Mg Tablet 1 Tab PO DAILY PRN 30 Days Atorvastatin Calcium 20 Mg Tablet 1 Tab PO DAILY Allopurinol 100 Mg Tablet 1 Tab PO DAILY Proair Hfa Inhaler (Albuterol Sulfate) 8.5 Gm Hfa.aer.ad 2 Puff IH PRN Q6HRS PRN 21 Days ROS: Review of Systems Review of System REVIEW OF SYSTEMS: GENERAL: Denies weakness SKIN: No bruising, hair changes or rashes. EYES: No blurred, double or loss of vision. NOSE AND THROAT: No history of nosebleeds, hoarseness or sore throat. HEART: No history of palpitations, chest pain or shortness of breath on exertion. LUNGS: Denies cough, hemoptysis, wheezing or shortness of breath. GASTROINTESTINAL: Denies changes in appetite, nausea, vomiting, diarrhea or constipation. GENITOURINARY: No history of frequency, urgency, hesitancy or nocturia. NEUROLOGIC: Denies history of numbness, tingling, or tremor. PSYCHIATRIC: No history of panic, anxiety or depression. ENDOCRINE: No history of heat or cold intolerance, polyuria or polydipsia. EXTREMITIES: Pain all over his body Physical Exam: Vital Signs: Vital Signs Date Time Temp Pulse Resp B/P (MAP) Pulse Ox O2 Delivery O2 Flow Rate FiO2 05/24/21 05:26 18 92 Room Air 05/24/21 03:37 97.9 62 111/63 (79) 97.9 Physcial Exam: General: Well developed, well nourished, no acute distress, disheveled appearing HEENT: Pupils equally round and reactive to light, EOMI, no discharge, normal conjunctiva Neck: Supple, no nuchal rigidity, no JVD, trachea midline, no tenderness Cardiac: RRR, no murmurs, no gallops, no rubs Chest/Lungs: CTAB, no wheeze, no rhonchi, no crackles Abdomen: Obese, soft, non-distended, no guarding, no peritoneal signs, non- tender. Large midline reducible hernia in the anterior abdomen. Back: No tenderness Extremities: no edema, pulses intact, non-tender,capillary refill <3 sec bilateral upper and lower extremities, Neuro: Alert, drowsy and follow commands., no focal deficits, normal speech Labs: Labs: Laboratory Tests Test 05/23/21 22:04 05/23/21 23:00 05/24/21 03:15 05/24/21 05:00 Glucose (Fingerstick) 105 mg/dL (70-99) White Blood Count 8.5 x10^3/uL (4.0-11.0) Red Blood Count 3.35 x10^6/uL (4.30-5.70) Hemoglobin 10.5 g/dL (13.0-17.5) Hematocrit 31.7 % (39.0-53.0) Mean Corpuscular Volume 95 fL (79-100) Mean Corpuscular Hemoglobin 31 pg (25-35) Mean Corpuscular Hemoglobin Concent 33 g/dL (31-37) Red Cell Distribution Width 13.6 % (11.5-14.5) Platelet Count 443 x10^3/uL (140-400) Neutrophils (%) (Auto) 66 % (31-73) Lymphocytes (%) (Auto) 24 % (24-48) Monocytes (%) (Auto) 6 % (0-9) Eosinophils (%) (Auto) 3 % (0-3) Basophils (%) (Auto) 1 % (0-3) Neutrophils # (Auto) 5.6 x10^3/uL (1.8-7.7) Lymphocytes # (Auto) 2.0 x10^3/uL (1.0-4.8) Monocytes # (Auto) 0.5 x10^3/uL (0.0-1.1) Eosinophils # (Auto) 0.3 x10^3/uL (0.0-0.7) Basophils # (Auto) 0.1 x10^3/uL (0.0-0.2) Sodium Level 134 mmol/L (136-145) Potassium Level 4.5 mmol/L (3.5-5.1) Chloride Level 97 mmol/L (98-107) Carbon Dioxide Level 30 mmol/L (21-32) Anion Gap 7 (6-14) Blood Urea Nitrogen 32 mg/dL (8-26) Creatinine 1.9 mg/dL (0.7-1.3) Estimated GFR (Cockcroft-Gault) 36.6 BUN/Creatinine Ratio 17 (6-20) Glucose Level 95 mg/dL (70-99) Lactic Acid Level 2.1 mmol/L (0.4-2.0) 1.2 mmol/L (0.4-2.0) Calcium Level 8.6 mg/dL (8.5-10.1) Phosphorus Level 5.0 mg/dL (2.6-4.7) Magnesium Level 1.6 mg/dL (1.8-2.4) Total Bilirubin 0.3 mg/dL (0.2-1.0) Aspartate Amino Transf (AST/SGOT) 12 U/L (15-37) Alanine Aminotransferase (ALT/SGPT) 24 U/L (16-63) Alkaline Phosphatase 101 U/L (46-116) Creatine Kinase 20 U/L (39-308) Troponin I High Sensitivity 9 ng/L (4-75) XL-Hog-G-Type Natriuretic Peptide 128 pg/mL (0-124) Total Protein 6.8 g/dL (6.4-8.2) Albumin 3.1 g/dL (3.4-5.0) Albumin/Globulin Ratio 0.8 (1.0-1.7) Salicylates Level 1.4 mg/dL (2.8-20.0) Salicylate Last Dose Date Unk Salicylate Last Dose Time Unk Acetaminophen Level < 2 mcg/ml (10-30) Acetaminophen Last Dose Date Unk Acetaminophen Last Dose Time Unk Ethyl Alcohol Level < 10 mg/dL (0-10) Urine Collection Type Unknown Urine Color (Auto) Light yellow Urine Turbidity Clear Urine pH (Auto) 5.0 (<5.0-8.0) Urine Specific [place] 1.008 (1.000-1.030) Urine Protein (Auto) Negative mg/dL (Negative) Urine Glucose (Auto)(UA) Negative mg/dL (Negative) Urine Ketones (Auto) Negative mg/dL (Negative) Urine Blood (Auto) Negative (Negative) Urine Nitrite Negative (Negative) Urine Bilirubin (Auto) Negative (Negative) Urine Urobilinogen (Auto) Normal mg/dL (Normal) Urine Leukocyte Esterase (Auto) Negative (Negative) Urine RBC 0 /HPF (0-2) Urine WBC Rare /HPF (0-4) Urine Squamous Epithelial Cells Few /LPF Urine Bacteria 0 /HPF (0-FEW) Urine Hyaline Casts Moderate /HPF Urine Mucus Mod /LPF Urine Opiates Screen Neg (NEG) Urine Methadone Screen Neg (NEG) Urine Barbiturates Neg (NEG) Urine Phencyclidine Screen Neg (NEG) Urine Amphetamine/Methamphetamine Neg (NEG) Urine Benzodiazepines Screen Pos (NEG) Urine Cocaine Screen Neg (NEG) Urine Cannabinoids Screen Neg (NEG) Urine Ethyl Alcohol Neg (NEG) Test 05/24/21 08:28 Glucose (Fingerstick) 113 mg/dL (70-99) Laboratory Tests Test 05/23/21 22:04 05/23/21 23:00 05/24/21 03:15 05/24/21 05:00 Glucose (Fingerstick) 105 mg/dL (70-99) White Blood Count 8.5 x10^3/uL (4.0-11.0) Red Blood Count 3.35 x10^6/uL (4.30-5.70) Hemoglobin 10.5 g/dL (13.0-17.5) Hematocrit 31.7 % (39.0-53.0) Mean Corpuscular Volume 95 fL (79-100) Mean Corpuscular Hemoglobin 31 pg (25-35) Mean Corpuscular Hemoglobin Concent 33 g/dL (31-37) Red Cell Distribution Width 13.6 % (11.5-14.5) Platelet Count 443 x10^3/uL (140-400) Neutrophils (%) (Auto) 66 % (31-73) Lymphocytes (%) (Auto) 24 % (24-48) Monocytes (%) (Auto) 6 % (0-9) Eosinophils (%) (Auto) 3 % (0-3) Basophils (%) (Auto) 1 % (0-3) Neutrophils # (Auto) 5.6 x10^3/uL (1.8-7.7) Lymphocytes # (Auto) 2.0 x10^3/uL (1.0-4.8) Monocytes # (Auto) 0.5 x10^3/uL (0.0-1.1) Eosinophils # (Auto) 0.3 x10^3/uL (0.0-0.7) Basophils # (Auto) 0.1 x10^3/uL (0.0-0.2) Sodium Level 134 mmol/L (136-145) Potassium Level 4.5 mmol/L (3.5-5.1) Chloride Level 97 mmol/L (98-107) Carbon Dioxide Level 30 mmol/L (21-32) Anion Gap 7 (6-14) Blood Urea Nitrogen 32 mg/dL (8-26) Creatinine 1.9 mg/dL (0.7-1.3) Estimated GFR (Cockcroft-Gault) 36.6 BUN/Creatinine Ratio 17 (6-20) Glucose Level 95 mg/dL (70-99) Lactic Acid Level 2.1 mmol/L (0.4-2.0) 1.2 mmol/L (0.4-2.0) Calcium Level 8.6 mg/dL (8.5-10.1) Phosphorus Level 5.0 mg/dL (2.6-4.7) Magnesium Level 1.6 mg/dL (1.8-2.4) Total Bilirubin 0.3 mg/dL (0.2-1.0) Aspartate Amino Transf (AST/SGOT) 12 U/L (15-37) Alanine Aminotransferase (ALT/SGPT) 24 U/L (16-63) Alkaline Phosphatase 101 U/L (46-116) Creatine Kinase 20 U/L (39-308) Troponin I High Sensitivity 9 ng/L (4-75) GI-Hel-U-Type Natriuretic Peptide 128 pg/mL (0-124) Total Protein 6.8 g/dL (6.4-8.2) Albumin 3.1 g/dL (3.4-5.0) Albumin/Globulin Ratio 0.8 (1.0-1.7) Salicylates Level 1.4 mg/dL (2.8-20.0) Salicylate Last Dose Date Unk Salicylate Last Dose Time Unk Acetaminophen Level < 2 mcg/ml (10-30) Acetaminophen Last Dose Date Unk Acetaminophen Last Dose Time Unk Ethyl Alcohol Level < 10 mg/dL (0-10) Urine Collection Type Unknown Urine Color (Auto) Light yellow Urine Turbidity Clear Urine pH (Auto) 5.0 (<5.0-8.0) Urine Specific [place] 1.008 (1.000-1.030) Urine Protein (Auto) Negative mg/dL (Negative) Urine Glucose (Auto)(UA) Negative mg/dL (Negative) Urine Ketones (Auto) Negative mg/dL (Negative) Urine Blood (Auto) Negative (Negative) Urine Nitrite Negative (Negative) Urine Bilirubin (Auto) Negative (Negative) Urine Urobilinogen (Auto) Normal mg/dL (Normal) Urine Leukocyte Esterase (Auto) Negative (Negative) Urine RBC 0 /HPF (0-2) Urine WBC Rare /HPF (0-4) Urine Squamous Epithelial Cells Few /LPF Urine Bacteria 0 /HPF (0-FEW) Urine Hyaline Casts Moderate /HPF Urine Mucus Mod /LPF Urine Opiates Screen Neg (NEG) Urine Methadone Screen Neg (NEG) Urine Barbiturates Neg (NEG) Urine Phencyclidine Screen Neg (NEG) Urine Amphetamine/Methamphetamine Neg (NEG) Urine Benzodiazepines Screen Pos (NEG) Urine Cocaine Screen Neg (NEG) Urine Cannabinoids Screen Neg (NEG) Urine Ethyl Alcohol Neg (NEG) Test 05/24/21 08:28 Glucose (Fingerstick) 113 mg/dL (70-99) Images: Images PROCEDURE: WRIST 3V RIGHT EXAMINATION: XR RT WRIST 3VIEWS CLINICAL HISTORY: Wrist pain. TECHNIQUE: XR RT WRIST 3VIEWS COMPARISON: None FINDINGS/ IMPRESSION: Mild degenerative changes first CMC joint. Small ossicles along the posterior wrist on lateral view, likely related to acute fracture given overlying soft tissue swelling. This may be related to a triquetral fracture. PROCEDURE: CT HEAD AND CERVICAL SPINE WO Exam: CT head and cervical spine without contrast INDICATION: Falls, weakness TECHNIQUE: Sequential axial images through the head and cervical spine were ob tained without the administration of IV contrast. Exposure: One or more of the following in the visualized dose reduction techn iques were utilized for this examination: 1. Automated exposure control 2. Adjustment of the MA and/or KV according to patient size 3. Use of iterative of reconstructive technique Comparisons: None FINDINGS: Head: No focal parenchymal lesion or hemorrhage is identified. There is no midline shift or sulcal effacement. No acute vascular territory infarction is identified. Mcfadden-white distinction is preserved. The ventricular system is within normal limits without compression hydrocephalus. The basal cisterns are well maintained. The visualized portions of the paranasal sinuses and mastoid air cells are well- pneumatized. No acute fractures. Cervical spine: Straightening of cervical spine which may positional. Vertebral body heights are well-maintained. Fracture to the cervical spine is not identified. No significant spondylotic change in the cervical spine. Visualized paraspinal soft tissues are unremarkable. IMPRESSION: 1. No acute intracranial abnormality. 2. Negative CT C-spine for acute traumatic injury. Assessment/Plan Assessment/Plan Acute metabolic encephalopathy Possible right wrist fracture,triquetral fracture Acute electrolyte derangement likely due to volume depletionhyponatremia, hypochloremia, hypomagnesemia JOSE DE JESUS due to vasomotor nephropathy Failure to thrive Anemia likely due to chronic disease Benzodiazepine positivity Debilitation History of polysubstance abuse Admit to hospitalist service for further management Continue IV fluids Strict I's/O Monitor urine output Avoid nephrotoxic agents PT OT evaluation Consider Ortho consult for right wrist fracture and currently in a brace SCD and ambulation for DVT prophylaxis Protonix GI prophylaxis Cardiac diet CODE STATUS full Discussed with RN and SW Disposition inpatient management as above DPOA: Friend Justifications for Admission Other Justification Alcohol intoxication, PNA ADELINA GARCIA MD May 24, 2021 09:06
[2021-05-24] MEDS: FOLIC ACID 1 MG TABLET. PO SCH (10:33)
[2021-05-24] MEDS: THIAMINE 100 MG TABLET. PO SCH (10:33)
[2021-05-24] MEDS: ENOXAPARIN 40 MG/0.4 ML SYRINGE. SQ SCH ×2 (10:34→21:06)
[2021-05-24 11:00] VITALS: BP 102/35
[2021-05-24 15:00] VITALS: BP_SYST 107; BP_SYST 89; BP_SYST 90; BP_DIAS 51; BP_DIAS 53; BP_DIAS 54
[2021-05-24 19:50] VITALS: BP 101/55
[2021-05-24 23:16] VITALS: BP 127/70
[2021-05-25] MEDS: HYDROcodone/APAP 10/325 1 TAB TABLET PO PRN ×3 (01:09→14:37)
[2021-05-25 07:00] VITALS: BP 132/60
[2021-05-25] MEDS: INSULIN LISPRO 300 UNITS/3 ML VIAL. SQ SCH ×2 (07:30→11:30)
[2021-05-25] MEDS: THIAMINE 100 MG TABLET. PO SCH (08:29)
[2021-05-25] MEDS: ENOXAPARIN 40 MG/0.4 ML SYRINGE. SQ SCH (08:29)
[2021-05-25] MEDS: FOLIC ACID 1 MG TABLET. PO SCH (08:29)
[2021-05-25 09:57] LABS: CALCIUM 8.6 mg/dL (8.5-10.1); CREATININE 1.1 mg/dL (0.7-1.3); GFR 68.8
[2021-05-25 11:00] VITALS: BP 138/82
--- NOTE | 2021-05-25 11:21 | PDOC3 ---
[facility]-Discharge Summary Date of Admission: Date of Admission: May 24, 2021 Date of Discharge: Date of Discharge: May 25, 2021 Admission Diagnosis: Admitting Diagnosis: weakness, fall Hospital Course: Hospital Course: 05/25 Patient evaluated with bedside. Resting easily awoken Says he is doing wellno complaints. Complaining of some numbness on his feet we will try extra dose of gabapentin. Either way able to discharge. Follow-up for wrist fracture. Stop drinking. Greater than 30 minutes spent on this discharge. 21 minutes advance care planning. Assessment/Plan Acute metabolic encephalopathy Possible right wrist fracture,triquetral fracture Acute electrolyte derangement likely due to volume depletionhyponatremia, hypochloremia, hypomagnesemia JOSE DE JESUS due to vasomotor nephropathy Failure to thrive Anemia likely due to chronic disease Benzodiazepine positivity Debilitation History of polysubstance abuse Admit to hospitalist service for further management Continue IV fluids Strict I's/O Monitor urine output Avoid nephrotoxic agents PT OT evaluation Consider Ortho consult for right wrist fracture and currently in a brace SCD and ambulation for DVT prophylaxis Protonix GI prophylaxis Cardiac diet CODE STATUS full Discussed with RN and SW Disposition inpatient management as above DPOA: Friend Disposition: Disposition/Orders: D/C to Home Activity: Activity: Resume previous activity Diet: Diet: Regular Medications: Home Meds Active Scripts Haloperidol (HALOPERIDOL) 5 Mg Tablet, 1 TAB PO BID for . for 10 Days, #20 TAB 1 Refill Prov:CYDNEYLEKATALINAL K III DO 04/27/21 Reported Medications Hydrocodone Bit/Acetaminophen (HYDROCODONE-APAP 10325 ) 1 Tab Tablet, 1 TAB PO PRN Q6HRS PRN for PAIN, TAB 0 Refills 05/24/21 Duloxetine Hcl (CYMBALTA) 60 Mg Capsule.dr, 1 CAP PO DAILY for depression, #90 CAP 3 Refills 04/29/21 Carvedilol (CARVEDILOL) 25 Mg Tablet, 25 MG PO BIDWMEALS for CARDIAC, TAB 04/29/21 Furosemide (FUROSEMIDE) 40 Mg Tablet, 1 TAB PO DAILY for water pill, #30 TAB 5 Refills 04/29/21 Tiotropium [place] (SPIRIVA) 18 Mcg Cap.w.dev, 1 CAP IH DAILY for sob, #30 CAP 3 Refills 08/24/20 Polyethylene Glycol 3350 (POLYETHYLENE GLYCOL 3350) 2,500 Gm Powder, 17 GM PO DAILY PRN for CONSTIPATION, #255 GM 0 Refills 08/24/20 Metformin Hcl (METFORMIN HCL) 1,000 Mg Tablet, 1000 MG PO BID WMEALS for ANTI- DIABETIC, TAB 0 Refills 08/24/20 Lisinopril (LISINOPRIL) 40 Mg Tablet, 1 TAB PO DAILY for htn, #30 TAB 5 Refills 08/24/20 Gabapentin (GABAPENTIN) 300 Mg Capsule, 300 MG PO TID for NEUROGENIC PAIN, CAP 08/24/20 Colchicine (COLCRYS) 0.6 Mg Tablet, 1 TAB PO DAILY PRN for gout for 30 Days, #30 TAB 0 Refills 08/24/20 Atorvastatin Calcium (ATORVASTATIN CALCIUM) 20 Mg Tablet, 1 TAB PO DAILY for cholesterol, #30 TAB 5 Refills 08/24/20 Allopurinol (ALLOPURINOL) 100 Mg Tablet, 1 TAB PO DAILY for gout, #30 TAB 5 Refills 08/24/20 Albuterol Sulfate (PROAIR HFA INHALER) 8.5 Gm Hfa.aer.ad, 2 PUFF IH PRN Q6HRS PRN for WHEEZING for 21 Days, #1 INHALER 0 Refills 08/24/20 Scheduled Allopurinol (Allopurinol), 1 TAB PO DAILY, (Reported) Atorvastatin Calcium (Atorvastatin Calcium), 1 TAB PO DAILY, (Reported) Carvedilol (Carvedilol), 25 MG PO BIDWMEALS, (Reported) Duloxetine Hcl (Cymbalta), 1 CAP PO DAILY, (Reported) Furosemide (Furosemide), 1 TAB PO DAILY, (Reported) Gabapentin (Gabapentin), 300 MG PO TID, (Reported) Haloperidol (Haloperidol), 1 TAB PO BID Lisinopril (Lisinopril), 1 TAB PO DAILY, (Reported) Metformin Hcl (Metformin Hcl), 1,000 MG PO BID WMEALS, (Reported) Tiotropium [place] (Spiriva), 1 CAP IH DAILY, (Reported) Scheduled PRN Albuterol Sulfate (Proair Hfa Inhaler), 2 PUFF IH PRN Q6HRS PRN for WHEEZING, (Reported) Colchicine (Colcrys), 1 TAB PO DAILY PRN for gout, (Reported) Hydrocodone Bit/Acetaminophen (Hydrocodone-Apap 10-325 ), 1 TAB PO PRN Q6HRS PRN for PAIN, (Reported) Polyethylene Glycol 3350 (Polyethylene Glycol 3350), 17 GM PO DAILY PRN for CONSTIPATION, (Reported) Justicifation of Admission Dx: Justifications for Admission: Justification of Admission Dx: Yes Respiratory Failure: Mechanical Ventilation Altered Mental Status: Altered Mental Status TJ CARRENO MD May 25, 2021 11:21
[2021-05-25] MEDS ORDERED: GABAPENTIN 300 MG CAPSULE. PO ONE (11:30)
[2021-05-25 15:00] VITALS: BP 105/72
--- NOTE | 2021-05-25 16:13 | NUR ---
Discharge Note: FAZAL DIANA [address] Discharge instructions and discharge home medications reviewed with Patient and a copy given. All questions have been answered and understanding verbalized. The following instructions and handouts were given: worsening symptoms, seizures, medications, and follow up information. Discontinued lines and drains: IV discontinued from LAC, skin intact, and lunchroom monitor removed from room and patient. Patient discharged to home with self care via private transportation.
== END 2021-05-25 15:57 | disposition home or self-care (01) | DRG 562 ==
LOC: ER 21:49 → 5 NORTH 05-24 00:01
PROVIDERS: ADMIT Internal Medicine; ATTEND Internal Medicine
PROC: 2W38X1Z Immobilization of Right Upper Extremity using Splint (ICD-10-PCS; principal; 2021-05-24)
DX: S62.101A Fracture of unspecified carpal bone, right wrist, initial encounter for closed fracture (principal); G93.41 Metabolic encephalopathy; N17.0 Acute kidney failure with tubular necrosis; E87.1 Hypo-osmolality and hyponatremia; J98.11 Atelectasis; D63.8 Anemia in other chronic diseases classified elsewhere; E11.9 Type 2 diabetes mellitus without complications; E83.42 Hypomagnesemia; E86.9 Volume depletion, unspecified; E87.8 Other disorders of electrolyte and fluid balance, not elsewhere classified; F10.129 Alcohol abuse with intoxication, unspecified; F17.200 Nicotine dependence, unspecified, uncomplicated; I10 Essential (primary) hypertension; R29.6 Repeated falls; R56.9 Unspecified convulsions; R62.7 Adult failure to thrive; F32.A Depression, unspecified; F41.9 Anxiety disorder, unspecified; M10.9 Gout, unspecified; W18.39XA Other fall on same level, initial encounter; Y93.89 Activity, other specified; Y92.89 Other specified places as the place of occurrence of the external cause; Y99.8 Other external cause status
CPT/HCPCS: 36415; 70450; 71045; 72125; 73110; 80048; 80053; 80307; 80329; 81001; 82550; 82962; 83605; 83735; 83880; 84100; 84484; 85025; 87040; 93005; 96360; G0480; J1650; J1815; J7030; 97535-GO; 99285-25; G0378